=== PATIENT | female | born 1955 | race Caucasian/White ===

== ENCOUNTER 2020-04-18 00:31 | Outpatient (RCR) | payer OTHER, SELFPAY ==
[2019-05-16 16:11] VITALS: BMI 31.4
[2020-04-18] MEDS: COVID-19 VACC, MRNA(PFIZER)/PF 30 MCG/0.3 ML SYRINGE IM (17:22)
[2020-05-09] MEDS: COVID-19 VACC, MRNA(PFIZER)/PF 30 MCG/0.3 ML SYRINGE IM (16:45)
== END 2020-05-09 23:59 | disposition home or self-care (01) ==
LOC: IMMUN 00:31
PROVIDERS: PCP Family Medicine; Visit Provider Family Medicine
DX: Z23 Encounter for immunization (principal)
CPT/HCPCS: 0001A; 0002A; 91300

== ENCOUNTER → 2020-05-07 09:28 | Outpatient (CLI) | payer OTHER, SELFPAY ==
[2019-05-16 16:11] VITALS: BMI 31.4
[2020-05-07 12:05] LABS: Absolute Lymphocyte Count 1.17 X10^3/uL (0.83-4.51); Absolute Neutrophil Count 5.3 X10^3/uL (2.0-7.7); Basophil# 0.03 X10^3/uL; Basophil% 0.4 % (0-1); Eosinophil# 0.08 X10^3/uL; Eosinophils% 1.1 % (0-5); Hematocrit 43.6 % (37-47); Hemoglobin 13.8 g/dL (12.0-15.0); Lymphocyte # 1.17 X10^3/ul (4.0); Lymphocyte % 15.9 % (19-41); Mean Corp Hgb Conc 31.7 g/dL (32-36); Mean Corpuscular Hgb 30.7 pg (27.0-32.0); Mean Corpuscular Volume 97.1 fL (81-99); Mean Platelet Vol. 11.3 fl (6.2-12.0); Monocyte# 0.77 X10^3/uL; Monocyte% 10.5 % (0-10); NRBC Flagged by Analyzer 0 % (0-5); Neutrophil # 5.29 X10^3/uL (2.7-7.7); Neutrophil % 71.8 % (47-70); Platelet Count 347 K/mm3 (150-450); RBC Distribution Width SD 46.2 fl (35.1-43.9); Red Blood Count 4.49 M/mm3 (4.2-5.4); White Blood Count 7.4 K/mm3 (4.4-11.0)
[2020-05-07 12:32] LABS: Vitamin B12 551 pg/mL (211-911); Vitamin D,25 Hydroxy 24.1 ng/mL
[2020-05-07 12:43] LABS: Hemoglobin A1c 6.3 % (3.8-5.6)
[2020-05-07 12:47] LABS: ALB/GLOB Ratio 1.1 RATIO (0.9-2.4); AST(SGOT) 23 U/L (15-37); Alanine Aminotransfer ALT/SGPT 36 U/L (13-56); Albumin, Serum 3.7 g/dL (3.2-5.0); Alkaline Phosphatase 71 U/L (45-117); Anion Gap 5 (5-15); BUN 7 mg/dL (7-18); BUN/Creat Ratio 8.8 RATIO (10-20); Calcium,Total 9.6 mg/dL (8.5-10.1); Chloride 109 mmol/L (98-107); Cholesterol 146 mg/dL (200); Creatinine, Serum 0.79 mg/dL (0.55-1.02); EST Glomerular Filtration Rate 77 mL/min (>60); Est Glom Filt Rate - Afr Amer 94 mL/min (>60); Ferritin 37 ng/mL (8-252); Globulin 3.5 g/dL (2.2-4.2); Glucose 101 mg/dL (74-106); High Density Lipoprotein 60 mg/dL; Magnesium 2.2 mg/dL (1.6-2.6); Potassium 4.3 mmol/L (3.5-5.1); Protein, Total 7.2 g/dL (6.4-8.2); Sodium Level 143 mmol/L (136-145); Thyroid Stim Hormone (TSH) 0.76 uIU/mL (0.358-3.74); Triglycerides 81 mg/dL; Very Low Density Lipoprotein 16 mg/dL (5-40)
[2020-05-07 13:00] LABS: Microalbumin,Random Urine 7.2 mg/L (NO RANGE EST.)
== END ==
PROVIDERS: PCP Family Medicine; Referring Provider Internal Medicine Endocrinology, Diabetes & Metabolism; Visit Provider Internal Medicine Endocrinology, Diabetes & Metabolism
DX: E11.9 Type 2 diabetes mellitus without complications (principal); E78.2 Mixed hyperlipidemia; K90.9 Intestinal malabsorption, unspecified; E55.9 Vitamin D deficiency, unspecified
CPT/HCPCS: 36415; 80053; 80061; 82043; 82306; 82570; 82607; 82728; 83036; 83735; 84443; 85025

== ENCOUNTER 2021-05-07 08:31 | Outpatient (CLI) | payer MEDICARE, SELFPAY ==
[2021-05-07 10:38] LABS: Vitamin B12 362 pg/mL (211-911)
[2021-05-07 10:43] LABS: Hemoglobin A1c 6.2 % (3.8-5.6)
[2021-05-07 10:46] LABS: ALB/GLOB Ratio 1.1 RATIO (0.9-2.4); AST(SGOT) 21 U/L (15-37); Alanine Aminotransfer ALT/SGPT 25 U/L (13-56); Albumin, Serum 3.7 g/dL (3.2-5.0); Alkaline Phosphatase 63 U/L (45-117); Anion Gap 6 (5-15); BUN 7 mg/dL (7-18); BUN/Creat Ratio 8.4 RATIO (10-20); Calcium,Total 9.3 mg/dL (8.5-10.1); Chloride 106 mmol/L (98-107); Cholesterol 133 mg/dL (200); Creatinine, Serum 0.83 mg/dL (0.55-1.02); EST Glomerular Filtration Rate 73 mL/min (>60); Est Glom Filt Rate - Afr Amer 88 mL/min (>60); Globulin 3.3 g/dL (2.2-4.2); Glucose 134 mg/dL (74-106); High Density Lipoprotein 60 mg/dL; Magnesium 2.2 mg/dL (1.6-2.6); Potassium 4.3 mmol/L (3.5-5.1); Sodium Level 140 mmol/L (136-145); Thyroid Stim Hormone (TSH) 0.78 uIU/mL (0.358-3.74); Triglycerides 78 mg/dL; Very Low Density Lipoprotein 16 mg/dL (5-40)
[2021-05-11 12:18] LABS: Zinc, Plasma or Serum 73 ug/dL (44-115)
== END 2021-05-07 23:59 | disposition home or self-care (01) ==
PROVIDERS: PCP Family Medicine; Referring Provider Internal Medicine Endocrinology, Diabetes & Metabolism; Visit Provider Internal Medicine Endocrinology, Diabetes & Metabolism
DX: E11.9 Type 2 diabetes mellitus without complications (principal); E78.2 Mixed hyperlipidemia; K90.9 Intestinal malabsorption, unspecified; E55.9 Vitamin D deficiency, unspecified
CPT/HCPCS: 36415; 80053; 80061; 82043; 82306; 82570; 82607; 83036; 83735; 84443; 84630

== ENCOUNTER 2021-05-22 15:02 | Outpatient (CLI) | payer MEDICARE, SELFPAY ==
--- NOTE | 2021-05-22 15:04 | BI_ITS ---
MAMMOGRAPHY - BILATERAL SCREENING REASON FOR EXAM: Female, 65 years old. Routine annual screening examination. PERTINENT HISTORY: Non-contributory. TECHNIQUE: Digital bilateral breast rosalba (3D mammographic acquisition) in the CC and MLO projections. 2-D mediolateral oblique (MLO) and craniocaudad (CC) views of both breasts were obtained. CAD: Full Field Digital Mammography with Computer Added Detection was performed. COMPARISON: Comparison is made with prior outside examination 12/09/2015. FINDINGS: Breast Composition: There are scattered areas of fibroglandular density. There are no dominant masses or suspicious calcifications. No other significant abnormalities are identified. There has been no significant change since the prior study. BI/SCRN MAMM (CAD)W/ROSALBA BILAT IMPRESSION: Stable bilateral screening mammogram. Yearly follow-up mammogram recommended. (A) ASSESSMENT CATEGORY: BIRADS Category 1: Negative. A letter regarding these results will be sent to the patient by the facility within 30 days. Approximately 10% of breast cancers are not detected by mammography. A normal mammogram should not delay biopsy of a clinically suspicious abnormality. [id number] Electronically Signed: Jas Patel MD at 8:07 EDT ,
--- NOTE | 2021-05-22 15:20 | BD_ITS ---
STUDY: DUAL ENERGY X-RAY ABSORPTIOMETRY / DXA REASON FOR EXAM: Female, 65 years old. Osteopenia TECHNIQUE: Bone Mineral Density (BMD) measurements of lumbar spine and bilateral hips were obtained. COMPARISON: None. FINDINGS: Lumbar Spine (L1-L4): g/cm2 (0.817) / T-score (-2.4) / Z-score (-0.5) Findings are suggestive of osteopenia with a high fracture risk. Left Femur Total: g/cm2 (0.701) / T-score (-2.0) / Z-score (-0.7) Left Femoral Neck: g/cm2 (0.565) / T-score (-2.6) / Z-score (-1.0) Right Femur Total: g/cm2 (0.710) / T-score (-1.9) / Z-score (-0.7) Right Femoral Neck: g/cm2 (0.5-5) / T-score (-2.9) / Z-score (-1.4) BD/Dexa Bone Density Study IMPRESSION: The patient is considered osteoporotic as outlined below according to [employer] (WHO) criteria with a high fracture risk. Reference Information: The T-score is the number of standard deviations above or below the standard which is normal for young adults at their peak bone mineral density. The World Health Organization (WHO) interprets the T-scores as follows: Above -1 Normal bone density Between -1 and -2.5 Osteopenia Equal to / or below -2.5 Osteoporosis As a practical clinical guideline, osteopenia may be graded as follows: Mild -1 through -1.5 Moderate -1.6 through -2.0 Severe -2.1 through -2.4 The Z-score is the number of standard deviations above or below age-matched controls. A Z-score of less than -1.5 would be considered abnormal. References: 1. NIH Osteoporosis and Related Bone Diseases www osteo.org 2. International Society for Clinical Densitometry www iscd.org 3. National Osteoporosis Foundation www nof.org Electronically Signed: Jas Patel MD at 14:58 EDT ,
== END 2021-05-22 23:59 | disposition home or self-care (01) ==
LOC: OPBD 15:03
PROVIDERS: PCP Family Medicine; Referring Provider Internal Medicine Endocrinology, Diabetes & Metabolism; Visit Provider Internal Medicine Endocrinology, Diabetes & Metabolism
DX: Z12.31 Encounter for screening mammogram for malignant neoplasm of breast (principal); Z78.0 Asymptomatic menopausal state
CPT/HCPCS: 77063; 77067; 77080

== ENCOUNTER → 2021-07-10 | Outpatient (CLI) | payer MEDICARE, SELFPAY ==
[2021-07-10 13:04] VITALS: BP 118/71; PULSE 88; RESP 16; TEMP 36.1; O2SAT 98
[2021-07-10] MEDS: 0.9% NaCl Peripheral Flush Adult/Peds IV (13:12)
[2021-07-10] MEDS: Zoledronic Acid 5 MG 100 ML 300 MG IV (13:12)
== END | disposition home or self-care (01) ==
LOC: MEDOUTP 12:58
PROVIDERS: PCP Family Medicine; Referring Provider Internal Medicine Endocrinology, Diabetes & Metabolism; Visit Provider Internal Medicine Endocrinology, Diabetes & Metabolism
DX: M81.0 Age-related osteoporosis without current pathological fracture (principal)
CPT/HCPCS: 96365; A4216; J3489

== ENCOUNTER → 2022-05-05 | Outpatient (CLI) | payer MEDICARE, SELFPAY ==
[2022-05-05 10:14] LABS: Absolute Lymphocyte Count 1.19 X10^3/uL (0.83-4.51); Absolute Neutrophil Count 4.6 X10^3/uL (2.0-7.7); Basophil# 0.05 X10^3/uL; Basophil% 0.8 % (0-1); Eosinophil# 0.12 X10^3/uL; Eosinophils% 1.8 % (0-5); Hematocrit 44.7 % (37-47); Hemoglobin 14.1 g/dL (12.0-15.0); Lymphocyte # 1.19 X10^3/ul (0.83-4.51); Lymphocyte % 18.3 % (19-41); Mean Corp Hgb Conc 31.5 g/dL (32-36); Mean Corpuscular Volume 95.1 fL (81-99); Mean Platelet Vol. 10.5 fl (6.2-12.0); Monocyte# 0.59 X10^3/uL; Monocyte% 9.1 % (0-10); NRBC Flagged by Analyzer 0 % (0-5); Neutrophil # 4.55 X10^3/uL (2.7-7.7); Neutrophil % 69.8 % (47-70); Platelet Count 376 K/mm3 (150-450); RBC Distribution Width CV 12.9 % (11.6-14.6); RBC Distribution Width SD 45.1 fl (35.1-43.9); White Blood Count 6.5 K/mm3 (4.4-11.0)
[2022-05-05 10:23] LABS: Vitamin B12 611 pg/mL (211-911); Vitamin D,25 Hydroxy 32.2 ng/mL
[2022-05-05 10:30] LABS: AST(SGOT) 22 U/L (15-37); Alanine Aminotransfer ALT/SGPT 34 U/L (13-56); Albumin, Serum 3.6 g/dL (3.2-5.0); Alkaline Phosphatase 59 U/L (45-117); Anion Gap 7 (5-15); BUN 11 mg/dL (7-18); BUN/Creat Ratio 12.4 RATIO (10-20); Calcium,Total 9.2 mg/dL (8.5-10.1); Chloride 108 mmol/L (98-107); Cholesterol 138 mg/dL (200); Creatinine, Serum 0.89 mg/dL (0.55-1.02); EST Glomerular Filtration Rate 68 mL/min (>60); Est Glom Filt Rate - Afr Amer 82 mL/min (>60); Globulin 3.5 g/dL (2.2-4.2); Glucose 139 mg/dL (74-106); High Density Lipoprotein 56 mg/dL; Potassium 4.3 mmol/L (3.5-5.1); Protein, Total 7.1 g/dL (6.4-8.2); Sodium Level 142 mmol/L (136-145); Thyroid Stim Hormone (TSH) 1.82 uIU/mL (0.358-3.74); Triglycerides 87 mg/dL; Very Low Density Lipoprotein 17 mg/dL (5-40)
[2022-05-05 10:35] LABS: Microalbumin,Random Urine 6.8 mg/L (NO RANGE EST.); Microalbumin:Creatinine Ratio 13.9 mg/g CRE (<30 mg/g CRE)
== END | disposition home or self-care (01) ==
LOC: MTLAB 08:00
PROVIDERS: PCP Family Medicine; Referring Provider Internal Medicine Endocrinology, Diabetes & Metabolism; Visit Provider Internal Medicine Endocrinology, Diabetes & Metabolism
DX: E55.9 Vitamin D deficiency, unspecified (principal); E11.9 Type 2 diabetes mellitus without complications; E78.2 Mixed hyperlipidemia; K90.9 Intestinal malabsorption, unspecified; E66.09 Other obesity due to excess calories; Z68.32 Body mass index [BMI] 32.0-32.9, adult
CPT/HCPCS: 36415; 80053; 80061; 82043; 82306; 82570; 82607; 84443; 85025

== ENCOUNTER 2022-09-04 08:20 | Outpatient (CLI) | payer MEDICARE, SELFPAY ==
[2022-09-04 08:26] VITALS: BP 130/67; PULSE 70; RESP 14; O2SAT 99; BMI 32.2
[2022-09-04] MEDS: 0.9% NaCl Peripheral Flush Adult/Peds IV (08:47)
[2022-09-04] MEDS: Zoledronic Acid 5 MG 100 ML 300 MG IV (08:47)
[2022-09-04 09:12] VITALS: BP 126/64; PULSE 68; RESP 16; O2SAT 97
== END 2022-09-04 08:21 | disposition home or self-care (01) ==
PROVIDERS: PCP Family Medicine; Referring Provider Internal Medicine Endocrinology, Diabetes & Metabolism; Visit Provider Internal Medicine Endocrinology, Diabetes & Metabolism
DX: M81.0 Age-related osteoporosis without current pathological fracture (principal)
CPT/HCPCS: 96365; A4216; J3489

== ENCOUNTER → 2023-04-26 | Outpatient (CLI) | payer MEDICARE, SELFPAY ==
--- OUTSIDE RECORDS SUMMARY | 2023-04-26 08:33 | XMS RPT_ITS | CCD ---
Author Name Unknown Address [address] [place] [address] Organization [facility] Care Team Providers Care Online Merchandising Manager Name Role Phone Abbie Kaur Primary Care Provider FREDDY KOWALSKI Referring Unavailable ABBIE KAUR Primary Care Unavailable FREDDY KOWALSKI Attending Unavailable ABBIE KAUR Primary Care Unavailable Percy Kaur DOland Venancio Primary Care Provid er ABBIE KAUR Attending ABBIE Noyola Referring ABBIE Noyola Primary Care Sammy KAUR TAMPA VENANCIO Primary Care KORY Henson Referring Unavailable KORY RICE Attending Unavailable Allergies Allergy Classification Reported Allergen(s) Allergy Type Date of Onset Reaction(s) Facility (14 sources) Ciprofloxacin; Translations: [CIPROFLOXACIN] Drug Allergy 03-15-2018 [facility] Medications Current Medications Medication Drug Class(es) Dates Sig (Normalized) Sig (Original) Blood Glucose Monitoring Suppl (OneTouch Verio Flex System) w/Device kit (3 sources) Start: 05-14-2022 Blood Glucose Monitoring Suppl (OneTouch Verio Flex System) w/Device kit USE TO TEST ONCE DAILY 0 05/14/2022 Active Completed/Discontinued Medications Medication Drug Class(es) Dates Sig (Normalized) Sig (Original) A/C/E/ZINC OX/CUPRIC OX/LUTEIN ([facility]) (7 sources) A/C/E/ZINC OX/CU PRIC OX/LUTEIN ([facility]) Take by mouth. 0 Active Problems Problem Classification Problem Date Documented Da te Episodic/Chronic Diabetes mellitus without complication (9 sources) Type 2 diabetes mellitus without complication; Translations: [Type 2 diabetes mellitus without complications] 11-11-2018 Chronic Disorders of lipid metabolism (9 sources) Mixed hyperlipidemia; Translations: [Mixed hyperlipidemia] 11-11-2018 Chronic Headache; including migraine (3 sources) Muscular headache ; Translations: [Tension-type headache, unspecified, not intractable] Onset: 06-12-2022 Chronic Nutritional deficiencies (9 sources) Vitamin D deficiency; Translations: [Vitamin D deficiency, unspecified] 03-18-2016 Chronic Other gastrointestinal disorders (9 sources) Intestinal malabsorption; Translations: [Intestinal malabsorption, unspecified] 11-20-2015 Chronic Other nutritional; endocrine; and metabolic disorders (7 sources) Obese class I; Translations: [Obesity, unspecified] 11-20-2015 Chronic Other nutritional; endocrine; and metabolic disorders (2 sources) Obese class I; Translations: [Obesity (BMI 30.0-34.9)] 11-20-2015 Other screening for suspected conditions (not mental disorders or infectious disease) (6 sources) Patient encounter status; Translations: [Encounter for screening for malignant neoplasm of colon] Onset: 06-12-2022 Episodic Sprains and strains (2 sources) Unspecified sprain of left wrist, initial encounter; Translations: [Unspecified sprain of left wrist, initial encounter] Onset: 06-16-2022 Episodic Results Test Name Value Interpretation Reference Range Facil ity Vital Signs Date Time Vital Sign Value Performing Clinician Rocky le 06-12-2022 08:07-0400 Body height 162.6 cm [place] [employer] Phone: [facility] 06-12-2022 08:07-0400 Body temperature 97.39 [degF] [place] [email or web address] Work Phone: [facility] 06-12-2022 08:07-0400 Body weight 86.64 kg [place] [employer] Phone: [facility] 06-12-2022 08:07-0400 Diastolic blood pressure 78 mm[Hg] [place] [employer] Phone: [facility] 06-12-2022 08:07-0400 Heart rate 74 /min Abbie Harshad DO Work Phone: [facility] 06-12-2022 08:07-0400 SaO2% (BldA) [Mass fraction] 98 % [place] Harshad DO Work Phone: [facility] 06-12-2022 08:07-0400 Systolic blood pressure 130 mm[Hg] Abbie Harshad DO Work Phone: [facility] 05-15-2021 13:08-0400 Body height 162.6 cm [place] Harshad DO Work Phone: [facility] 05-15-2021 13:08-0400 Body weight 85.73 kg Abbie Harshad DO Work Phone: [facility] 05-15-2021 13:08-0400 Diastolic blood pressure 80 mm[Hg] [place] Harshad DO Work Phone: [facility] 05-15-2021 13:08-0400 Heart rate 73 /min [place] Harshad DO Work Phone: [facility] 05-15-2021 13:08-0400 SaO2% (BldA) [Mass fraction] 98 % Abbie Harshad DO Work Phone: [facility] 05-15-2021 13:08-0400 Systolic blood pressure 120 mm[Hg] [place] Harshad DO Work Phone: [facility] Encounters Encounter Date Encounter Type Care Provider Facility Start: 09-21-2022 End: 09-21-2022 ambulatory ABBIEGHASSAN KAUR Facility:[facility] Start: 09-17-2022 ambulatory Kory magana MD Work Phone: Ambulatory Surgery Start: 08-19-2022 ambulatory Cynthia Harrison [facility] [place] Procedures Date Procedure Procedure Detail Performing Clinician Start: 06-16-2022 End: 06-16-2022 Radex wrist complete minimum 3 views Freddy Kowalski MD Work Phone: Start: 05-14-2022 Hemoglobin A1c/Hemoglobin.total in Blood Mikel Price MD Work Phone: Start: 05-05-2022 Lipid panel Mikel huynh MD Work Phone: Start: 05-05-2022 MICROALBUMIN/CREATIN INE UR W RATIO (EXTERNAL) Mikel Price MD Work Phone: Start: 05-22-2021 Mammography [facility] Start: 05-15-2021 Adult depression scr eening assessment [place] Harshad DO Work Phone: Start: 05-07-2021 Hemoglobin A1c/Hemoglobin.total in Blood Mikel Price MD Work Phone: Start: 12-09-2015 Mammography Roberth weston Start: 08-03-2007 CONVERTED SURGICAL PATHOLOGY Roberth Mack Work Phone: Start: 02-25-2004 CONVERTED SURGICAL PATHOLOGY Roberth Mack Work Phone: Plan of Treatment Date Care Activity Detail Author Start: 06-13-2023 ANNUAL PCP TEAM CHRONIC DISEASE VISIT ANNUAL PCP TEAM CHRONIC DISEASE VISIT [facility] Start: 05-06-2023 Hepatitis B screening URINE ALBUMIN:CREATININE RATIO [facility] Start: 05-06-2023 Hepatitis B surface antibody level LDL CHOLESTEROL [facility] Start: 01-18-2023 Hepatitis C antibody, confirmatory test DILATED RETINAL EXAM [facility] Start: 2022 Hemoglobin A1c/Hemoglobin.total in Blood HBA1C [facility] Start: 10-16-2022 Influenza vaccination INFLUENZA (#1) [facility] Start: 06-12-2022 End: 06-13-2023 CBC W Auto Differential panel - Blood CBC + DIFF Lab Routine Expected: 06/12/2022, Expires: 06/13/2023 [facility] Work Phone: Immunizations Immunization Date Immunization Notes Care Provider Fa noelle 11-06-2020 Influenza, injectabl e, Madin Jocy Canine Kidney, preservative free, quadrivalent Abbie Harshad DO Work Phone: [facility] 12-01-2019 influenza virus vacc ine, unspecified formulation [place] Harshad DO Work Phone: [facility] 10-24-2019 Influenza, injectabl e, Madin [place] Canine Kidney, preservative free, quadrivalent Abbie Harshad DO Work Phone: [facility] 03-10-2019 zoster vaccine recombinant [place] Harshad DO Work Phone: [facility] 10-19-2018 Influenza, injectabl e, Madin Jocy Canine Kidney, preservative free, quadrivalent Abbie Harshad DO Work Phone: [facility] 10-19-2018 zoster vaccine recombinant [place] Harshad DO Work Phone: [facility] 11-01-2017 influenza, injectabl e, quadrivalent, preservative free Abbie Harshad DO Work Phone: [facility] 01-18-2017 Influenza, injectabl e, Madin [place] Canine Kidney, preservative free, quadrivalent [place] Harshad DO Work Phone: [facility] 12-09-2015 influenza, injectabl e, quadrivalent, preservative free Abbie Harshad DO Work Phone: [facility] 12-09-2015 zoster vaccine, live Freelan d Harshad DO Work Phone: [facility] 2014 influenza, injectabl e, quadrivalent, preservative free Abbie Harshad DO Work Phone: [facility] 11-16-2013 pneumococcal conjuga te vaccine, 13 valent [place] Harshad DO Work Phone: [facility] 11-08-2013 influenza, high dose seasonal, preservative-free [place] Harshad DO Work Phone: [facility] 11-15-2012 influenza, high dose seasonal, preservative-free [place] Harshad DO Work Phone: [facility] 12-06-2009 influenza virus vacc ine, whole virus [place] Harshad DO Work Phone: [facility] 02-21-2009 novel influenza-H1N1 -09, preservative-free, injectable [place] Harshad DO Work Phone: [facility] 12-03-2008 influenza, seasonal, injectable [place] Harshad DO Work Phone: [facility] 01-04-2007 influenza virus vacc ine, whole virus Abbie Kaur DO Work Phone: [facility] Payers Date Payer Category Payer Medicare AETNA MEDICARE A ETNA MEDICARE PPO [id number] 2021-Present [phone] [address] [place] [address] PPO [id number] 2021 Medicare [id number] 2021 Medicare [id number] Social History Date Type Detail Facility Tobacco smoking stat us GAIS Unknown if ever smoked [facility] Start: 1955 Sex Assigned At Not on file [facility] Start: 11-20-2015 End: 06-16-2022 Tobacco smoking status NHIS Never smoked tobacco [facility] Start: 05-15-2021 End: 06-12-2022 Alcohol intake Current drinker of alcohol (finding) [facility] Start: 11-20-2015 History SDOH Alcohol Comment Rare [facility] Start: 1955 Sex Assigned At Female C [facility] Start: 05-05-2021 End: 06-16-2022 Exposure to SARS-CoV-2 (event) Not sure [facility] Start: 11-20-2015 End: 06-16-2022 Tobacco use and exposure Smokeless tobacco non-user [facility] Start: 06-16-2022 History SDOH Alcohol Frequency 2 [facility] Start: 01-21-2020 End: 06-12-2022 History of Social function [facility] Start: 01-21-2020 End: 06-12-2022 Tobacco use panel [facility] Adult Depression Screening Assessment 0 [facility] Start: 05-14-2021 Gender identity Identifies as female gender (finding) [facility] Medical Equipment Procedure Code Equipment Code Equipment Origin al Text Equipment Identifier Dates USE TO TEST ONCE DAILY [id number] Start: 05-14-2022 Clinical Notes 05-15-2021 to 09-21-2022 Cynthia Harrison - 08/19/2022 10:56 AM EDTPatient InstructionsTelephone Encounter - Yady Nuñez Pss - 07/21/2022 8:54 AM EDTFsimi Kaur DO - 06/12/2022 8:12 AM EDT Note Date & Type Note Facility 09-21-2022 Note HNO ID: [id number] Author: Naomi Hartley, ADWOA Service: ? Author Type: Registered Nurse Type: Nursing Progress Note Filed: 09/21/2022 9:09 AM Note Text: MD at bedside. Findings reviewed with pt. States understanding. [facility] 08-19-2022 Note Patient Outreach (FP YL) DIVINE GROSSMAN ([id number]) 1955 F Date Time Provider Department 08/19/22 CYNTHIA HARRISON During your visit today, we recorded the following information about you: Cynthia Harrison 08/19/2022 11:16 AM Signed POPULATION HEALTH NAVIGATION OUTREACH Action/FYI Patient Identified by Name and : YES, via phone Outreach Outcome/Action Spoke to patient / parent / legal guardian: Patient will return the call or ask for return call Patient has had DM eye exam at [facility] in the past. Called to see when patient had last DM eye exam. Completed on 01-18-[address] Adore Winters. Requested office to fax record to PCP at fax [phone]. HM updated. Patient needs scheduled for Medicare Wellness appt with PCP. Needs Reminder to complete mamm. Last Ov 06-12-22. Spoke to patient. She is going to call back to schedule medicare wellness, she is going to schedule mammogram and osteoporosis injection this week with Dr Price. Scheduled for colonoscopy already. Patient does have HCPOA and will bring into PCP office to be scanned. Did you use a PCP flex slot to schedule this appointment? N/A Reason for Outreach Care Gap or Scheduling/Wellness visits Payer: Payor: AETNA MEDICARE / Plan: AETNA MEDICARE PPO / Product Type: PPO / Care Gap Reviewed:: Annual Wellness visit Breast Cancer screening Diabetic Eye Exam HBA1C Nephropathy (Albumin/Creatinine) Urine Reminder: Reminder note to check Health Maintenance for items below Health Maintenance items due: HEPATITIS C SCREENING Never done DTAP,TDAP,TD(1 - Tdap) Never done COLORECTAL CANCER SCREENING Never done PNEUMOCOCCAL: 65+(2 - PPSV23 if available, else PCV20) due on 01/11/2014 DILATED RETINAL EXAM due on 01/28/2019 DIABETIC FOOT EXAM due on 10/11/2019 ADVANCE DIRECTIVE DISCUSSION Never done DEPRESSION ASSESSMENT Never done MAMMOGRAM due on 05/22/2022 Navigation Signature: Cynthia Harrison August 19, 2022 10:56 AM Allergies As of Date: 08/19/2022 Noted Allergy Reaction CIPROFLOXACIN 03/15/2018 7 - Swelling Comments: tongue Date Reviewed: 06/12/2022 Reviewed by: Abbie Kaur DO - Fully Assessed Reason for Visit: Population Health Navigation Outreach [3910] Cmt: Needs Medicare Wellness Sched, Care Gap Review Order(s):LIPID PANEL (OUTSIDE) [8774888] Order #: [id number] MICROALBUMIN/CREATININE UR W RATIO (EXTERNAL) [3941453] Order #: [id number] HGB A1C [[id number]] Order #: [id number] Prescriptions as of 08/19/2022 - atorvastatin (LIPITOR) 10 mg tablet Take 10 mg by mouth once daily. - ONETOUCH VERIO TEST STRIPS test strip USE TO TEST ONCE DAILY - ONETOUCH VERIO FLEX METER USE TO TEST ONCE DAILY - amitriptyline (ELAVIL) 25 mg tablet Take 1 tablet by mouth daily at bedtime. - amitriptyline (ELAVIL) 10 mg tablet Take 1 tablet by mouth daily at bedtime. - amitriptyline (ELAVIL) 10 mg tablet 1 po q hs x 5 days then 2 (20 mg) hs - metFORMIN (GLUCOPHAGE) 1,000 mg tablet Take 1 tablet by mouth twice daily. - simvastatin (ZOCOR) 20 mg tablet Take 1 tablet by mouth daily at bedtime. - Calcium Citrate-Vitamin D3 200 mg-6.25 mcg (250 unit) tab Take by mouth. - A/C/E/ZINC OX/CUPRIC OX/LUTEIN ([facility] ORAL) Take by mouth. - Cholecalciferol, Vitamin D3, 25 mcg (1,000 unit) cap Take 1,000 Units by mouth once daily. Problem List As Of Date 08/19/2022 Noted Resolved Controlled type 2 diabetes mellitus without com* Mixed hyperlipidemia [E78.2] Malabsorption [K90.9] Obesity (BMI 30.0-34.9) [E66.9] Vitamin D deficiency [E55.9] Encounter Status:Closed by CYNTHIA HARRISON on 08/19/22 [facility] 08-19-2022 Note HNO ID: [id number] Author: Cynthia Harrison Service: ? Author Type: ? Type: Progress Notes Filed: 08/19/2022 11:16 AM Note Text: POPULATION HEALTH NAVIGATION OUTREACH Action/FYI Patient Identified by Name and : YES, via phone Outreach Outcome/Action Spoke to patient / parent / legal guardian: Patient will return the call or ask for return call Patient has had DM eye exam at [facility] in the past. Called to see when patient had last DM eye exam. Completed on 01-18-[address] Adore Winters. Requested office to fax record to PCP at fax [phone]. HM updated. Patient needs scheduled for Medicare Wellness appt with PCP. Needs Reminder to complete mamm. Last Ov 06-12-22. Spoke to patient. She is going to call back to schedule medicare wellness, she is going to schedule mammogram and osteoporosis injection this week with Dr Price. Scheduled for colonoscopy already. Patient does have HCPOA and will bring into PCP office to be scanned. Did you use a PCP flex slot to schedule this appointment? N/A Reason for Outreach Care Gap or Scheduling/Wellness visits Payer: Payor: AETNA MEDICARE / Plan: AETNA MEDICARE PPO / Product Type: PPO / Care Gap Reviewed:: Annual Wellness visit Breast Cancer screening Diabetic Eye Exam HBA1C Nephropathy (Albumin/Creatinine) Urine Reminder: Reminder note to check Health Maintenance for items below Health Maintenance items due: HEPATITIS C SCREENING Never done DTAP,TDAP,TD(1 - Tdap) Never done COLORECTAL CANCER SCREENING Never done PNEUMOCOCCAL: 65+(2 - PPSV23 if available, else PCV20) due on 01/11/2014 DILATED RETINAL EXAM due on 01/28/2019 DIABETIC FOOT EXAM due on 10/11/2019 ADVANCE DIRECTIVE DISCUSSION Never done DEPRESSION ASSESSMENT Never done MAMMOGRAM due on 05/22/2022 Navigation Signature: Cynthia Christy August 19, 2022 10:56 AM [facility] 08-19-2022 History of Presen t illness Narrative POPULATION HEALTH NAVIGATION OUTREACH Action/FYI Patient Identified by Name and : YES, via phone Outreach Outcome/Action Spoke to patient / parent / legal guardian: Patient will return the call or ask for return call Patient has had DM eye exam at [facility] in the past. Called to see when patient had last DM eye exam. Completed on 01-18-[address] Adore Winters. Requested office to fax record to PCP at fax [phone]. HM updated. Patient needs scheduled for Medicare Wellness appt with PCP. Needs Reminder to complete mamm. Last Ov 06-12-22. Spoke to patient. She is going to call back to schedule medicare wellness, she is going to schedule mammogram and osteoporosis injection this week with Dr Price. Scheduled for colonoscopy already. Patient does have HCPOA and will bring into PCP office to be scanned. Did you use a PCP flex slot to schedule this appointment? N/A Reason for Outreach Care Gap or Scheduling/Wellness visits Payer: Payor: AETNA MEDICARE / Plan: AETNA MEDICARE PPO / Product Type: PPO / Care Gap Reviewed:: Annual Wellness visit Breast Cancer screening Diabetic Eye Exam HBA1C Nephropathy (Albumin/Creatinine) Urine Reminder: Reminder note to check Health Maintenance for items below Health Maintenance items due: HEPATITIS C SCREENING Never done DTAP,TDAP,TD(1 - Tdap) Never done COLORECTAL CANCER SCREENING Never done PNEUMOCOCCAL: 65+(2 - PPSV23 if available, else PCV20) due on 01/11/2014 DILATED RETINAL EXAM due on 01/28/2019 DIABETIC FOOT EXAM due on 10/11/2019 ADVANCE DIRECTIVE DISCUSSION Never done DEPRESSION ASSESSMENT Never done MAMMOGRAM due on 05/22/2022 Navigation Signature: Cynthia Harrison August 19, 2022 10:56 AM documented in this encounter [facility] 07-21-2022 Instructions Ydaylin Nuñez Pss - 07/21/2022 8:58 AM EDT Images from the original note were not included. Bowel Preparation Instructions for: Miralax-Gatorade Preparations IF YOU DO NOT FOLLOW THESE DIRECTIONS, YOUR COLONOSCOPY WILL BE CANCELLED. [place] Instructions: Your bowel must be empty so that your doctor can clearly view your colon. Follow all of the instructions in this handout EXACTLY as they are written. Do NOT eat any solid food the ENTIRE day before your colonoscopy. Buy your bowel preparation at least 5 days before your colonoscopy. Four (4) Dulcolax laxative tablets containing 5mg of bisacodyl each (NOT Dulcolax stool softener) One (1) 8.3oz. bottle Miralax (238 grams) or generic equivalent 2 x 32oz. Bottles of Gatorade (NOT RED) Diabetic Patients: Use G2 (Gatorade 2) TRANSPORTATION on the Day of Your Exam A responsible adult MUST be present with you at Check In prior to your colonoscopy and REMAIN in the endoscopy area until you are discharged. You are NOT ALLOWED to drive, take a taxi or bus, or leave the Endoscopy Center ALONE. If you do not have a responsible electric truck driver (family member or friend) with you to take you home, your exam cannot be done with sedation and will be cancelled. Please bring a list of all of your current medications, including any [id number] medications with you. Medications If you take insulin, diabetic medications or blood thinners such as Coumadin (warfarin), Plavix (clopidogrel), Ticlid (ticlopidine hydrochloride), Agrylin (anagrelide), Xarelto (Rivaroxaban), Pradaxa (Dabigatran), Eliquis (Apixaban), and Effient (Prasugrel). You MUST call the doctors who orders those medicines for instructions on altering the dosage before your colonoscopy. All other medications should be taken the day of the exam with a sip of water including ASPIRIN. Five (5) Days Before Your Colonoscopy Do NOT take medicines that stop diarrhea - such as Imodium, Kaopectate, or Pepto Bismol. Do NOT take fiber supplements - such as Metamucil, Citrucel, or Perdiem. Do NOT take products that contain iron - such as multi-vitamins (the label lists what is in the products). Three (3) Days Before Your Colonoscopy Do NOT eat high-fiber foods - such as popcorn, beans, seeds (flax, sunflower, quinoa), multigrain bread, nuts, salad/vegetables, or fresh and dried fruit. 1 Bowel Preparation Instructions for: Miralax-Gatorade Preparations One (1) Day Before Your Colonoscopy Only drink clear liquids the ENTIRE DAY before your colonoscopy. Do NOT eat any solid foods. Drink at least 8 ounces of clear liquids every hour after waking up. The clear liquids you can drink include: Clear Liquid (NO RED LIQUIDS) DO NOT DRINK Gatorade, Pedialyte or Powerade Clear broth or bouillon Coffee or tea (no milk or non-dairy creamer) Carbonated and non-carbonated soft drinks Humble-Aid or other fruit flavored drinks Strained fruit juices (no pulp) Jell-O, popsicles, hard candy Water Alcohol Milk or non-dairy creamers Noodles or vegetables in soup Juice with pulp Liquid you cannot see through Do not use tobacco/vaping products Mix 1/2 of Miralax bottle (119 grams) in each 32 ounces of Gatorade bottle until dissolved. Keep cool in the refrigerator. DO NOT ADD ICE. The bowel preparation solution will be consumed in two parts. Part 1 5:00 PM - Evening before your colonoscopy Take 4 Dulcolax tablets. 6 PM - Evening before your colonoscopy Drink 32 oz. of the mixed solution. Drink an 8 oz. glass of bowel preparation every 15 minutes for a total of 4 glasses. Fifteen (15) minutes later, drink an 8 oz. glass of of clear liquids every 15 minutes for a total of 2 glasses. You may continue to drink clear liquids till midnight. Part 2 On the day of your colonoscopy you may drink clear liquids up to (three) 3 hours prior to procedure. 4 1/2 hours before your colonoscopy Take another 32 oz. bottle of mixed solution. Drink an 8 oz. glass of bowel prep every 15 minutes for a total of 4 glasses. Fifteen (15) minutes later, drink an 8 oz. glass of clear liquids every 15 minutes for a total of 2 glasses. You may continue to drink clear liquids up to (three) 3 hours before your exam. 2 01/2019 documented in this encounter [facility] 07-21-2022 Miscellaneous Notes Indication: AVERAGE RISK SCREENING COLONOSCOPY Height: 5'3 Weight: 185 BMI: 32.8 Have you ever been told you were difficult to intubate? No (If yes, schedule at hospital) Recent stroke or cardiac event in the past 6 months? No (ex: heart attack or stent placement) Chest pain or shortness of breath on exertion? No If yes, give to TANKAGE GRINDER OPERATOR to evaluate. History of COPD/Emphysema/Asthma/or Sleep Apnea? No If uses an inhaler, have pt bring inhaler with them. On oxygen at home? No If yes, give to TANKAGE GRINDER OPERATOR to evaluate. Implanted defibrillator (ACD)? No If yes, schedule at hospital Allergies: Latex, Adhesives, or Medication? Medications If anaphylactic reaction to latex, schedule at hospital On any blood thinners? No (Coumadin, Plavix, ASA, Xarelto, Brilinta, Eliquis, Pradaxa, Efficent etc.) If yes, need to check with physician on whether to stop them or OV Are you insulin dependent? Are your sugars in control? Ask what BS is running. No If controlled sugars needs scheduled in early AM, If uncontrolled sugars and are over 250 needs to be scheduled at hospital. Any kidney/liver disease or on dialysis? No If cirrhosis pt., have TANKAGE GRINDER OPERATOR review chart Do you have a history of seizures? No If yes, when was last seizure? Tracheostomy new or old No If yes, schedule at hospital Any surgery or radiation to the head or neck? No If can't move neck side to side & up and down, schedule at hospital. Radiation to neck or head automatically gets scheduled at hospital COVID patients. Are you still having symptoms such as shortness of breath, on oxygen, using inhalers, seeing calibration specialist? No If yes, have TANKAGE GRINDER OPERATOR evaluate patient Personal History Colon polyps? No Colon cancer? No Crohn's Disease? No Ulcerative Colitis? No Who/where? Approx date Family History Colon polyps? No Colon cancer? No Crohn's Disease? No Ulcerative Colitis? No Relationship? Approx age dx. Referring Physician: Office Visit Scheduled: Procedure Date Scheduled: 09/21/22 documented in this encounter [facility] 06-12-2022 Note HNO ID: [id number] Author: Abbie Kaur DO Service: ? Author Type: Physician Type: Progress Notes Filed: 06/17/2022 8:44 PM Note Text: [facility] Negra Kaur DO [address] [place] [address] Date of Evaluation: 06/12/2022 Patient Name: Divine Grossman : 1955 Chief Complaint: Patient presents with: Follow Up: Yearly check up Nursing Intake: There are no exam notes on file for this visit. Subjective Ms. Grossman is a 66 year old female who is here today for her yearly exam. Patient states it has been a long time since she had a colonoscopy. Patient states she is currently having headaches and needs a refill on her medication The history is provided by the patient. No specialized language instructor was used. Review of Systems Constitutional: Negative for fatigue and unexpected weight change. HENT: Negative for nosebleeds. Eyes: Negative for redness and visual disturbance. Respiratory: Negative for apnea, cough and shortness of breath. Cardiovascular: Negative for chest pain, palpitations and leg swelling. Genitourinary: Negative for hematuria. Neurological: Negative for dizziness, weakness, light-headedness, numbness and headaches. Hematological: Does not bruise/bleed easily. Psychiatric/Behavioral: The patient is not nervous/anxious. PAST MEDICAL HISTORY Diagnosis Date Controlled type 2 diabetes mellitus without complication (HCC) H/O gastric bypass Malabsorption Mixed hyperlipidemia Obesity (BMI 30.0-34.9) Osteoporosis TBI (traumatic brain injury) (FORM[facility]) 2009 again in 2014 Uterine cancer (HCC) Vitamin D deficiency PAST SURGICAL HISTORY Procedure Laterality Date GASTRIC BYPASS HX HYSTERECTOMY HX FAMILY HISTORY Problem Relation Age of Onset Stroke Mother Diabetes Sister Social History Tobacco Use Smoking status: Never Smokeless tobacco: Never Vaping Use Vaping Use: Never used Substance Use Topics Alcohol use: Yes Comment: Rare Current Outpatient Medications Medication Sig atorvastatin (LIPITOR) 10 mg tablet Take 10 mg by mouth once daily. ONETOUCH VERIO TEST STRIPS test strip USE TO TEST ONCE DAILY ONETOUCH VERIO FLEX METER USE TO TEST ONCE DAILY amitriptyline (ELAVIL) 10 mg tablet Take 1 tablet by mouth daily at bedtime. metFORMIN (GLUCOPHAGE) 1,000 mg tablet Take 1 tablet by mouth twice daily. Cholecalciferol, Vitamin D3, 25 mcg (1,000 unit) cap Take 1,000 Units by mouth once daily. amitriptyline (ELAVIL) 25 mg tablet Take 1 tablet by mouth daily at bedtime. amitriptyline (ELAVIL) 10 mg tablet 1 po q hs x 5 days then 2 (20 mg) hs (Patient not taking: Reported on 06/12/2022) simvastatin (ZOCOR) 20 mg tablet Take 1 tablet by mouth daily at bedtime. (Patient not taking: Reported on 06/12/2022) Calcium Citrate-Vitamin D3 200 mg-6.25 mcg (250 unit) tab Take by mouth. (Patient not taking: Reported on 06/12/2022) A/C/E/ZINC OX/CUPRIC OX/LUTEIN ([facility]) Take by mouth. No current facility-administered medications for this visit. I have confirmed and edited as necessary the past medical, family and social histories, HPI, and ROS obtained by others. Objective BP 130/78 Pulse 74 Temp 97.4 Ht 5' 4 (1.63m) Wt 191 lb (86.6kg) SpO2 98% BMI 32.77 kg/(m2). Physical Exam Vitals and nursing note reviewed. Constitutional: General: She is not in acute distress. Appearance: Normal appearance. She is well-developed. She is not ill-appearing. HENT: Head: Normocephalic. Right Ear: There is no impacted cerumen. Left Ear: There is no impacted cerumen. Mouth/Throat: Pharynx: Uvula midline. No oropharyngeal exudate or posterior oropharyngeal erythema. Eyes: General: Lids are normal. Vision grossly intact. Gaze aligned appropriately. No scleral icterus. Right eye: No discharge. Left eye: No discharge. Extraocular Movements: Extraocular movements intact. Conjunctiva/sclera: Conjunctivae normal. Pupils: Pupils are equal, round, and reactive to light. Neck: Thyroid: No thyroid mass, thyromegaly or thyroid tenderness. Vascular: No carotid bruit. Trachea: Trachea and phonation normal. Cardiovascular: Rate and Rhythm: Normal rate and regular rhythm. Pulses: Normal pulses. Heart sounds: Normal heart sounds. Pulmonary: Effort: Pulmonary effort is normal. Breath sounds: Normal breath sounds. Musculoskeletal: General: Normal range of motion. Right shoulder: Normal. Left shoulder: Normal. Cervical back: Normal and full passive range of motion without pain. No tenderness. No spinous process tenderness. Thoracic back: Normal. Lumbar back: Normal. Right knee: Normal. Left knee: Normal. Right lower leg: No edema. Left lower leg: No edema. Lymphadenopathy: Cervical: No cervical adenopathy. Skin: General: Skin is warm and dry. Neurologic (more content not included)... [facility] 06-12-2022 History of Presen t illness Narrative Images from the original note were not included. [facility] [place] DO Harshad [address] [place] [address] Date of Evaluation: 06/12/2022 Patient Name: Divine Grossman : 1955 Chief Complaint: Patient presents with: Follow Up: Yearly check up Nursing Intake: There are no exam notes on file for this visit. Subjective Ms. Grossman is a 66 year old female who is here today for her yearly exam. Patient states it has been a long time since she had a colonoscopy. Patient states she is currently having headaches and needs a refill on her medication The history is provided by the patient. No specialized language instructor was used. Review of Systems Constitutional: Negative for fatigue and unexpected weight change. HENT: Negative for nosebleeds. Eyes: Negative for redness and visual disturbance. Respiratory: Negative for apnea, cough and shortness of breath. Cardiovascular: Negative for chest pain, palpitations and leg swelling. Genitourinary: Negative for hematuria. Neurological: Negative for dizziness, weakness, light-headedness, numbness and headaches. Hematological: Does not bruise/bleed easily. Psychiatric/Behavioral: The patient is not nervous/anxious. PAST MEDICAL HISTORY Diagnosis Date Controlled type 2 diabetes mellitus without complication ([facility]) H/O gastric bypass Malabsorption Mixed hyperlipidemia Obesity (BMI 30.0-34.9) Osteoporosis TBI (traumatic brain injury) ([facility]) 2009 again in 2013 Uterine cancer ([facility]) Vitamin D deficiency PAST SURGICAL HISTORY Procedure Laterality Date GASTRIC BYPASS HX HYSTERECTOMY HX FAMILY HISTORY Problem Relation Age of Onset Stroke Mother Diabetes Sister Social History Tobacco Use Smoking status: Never Smokeless tobacco: Never Vaping Use Vaping Use: Never used Substance Use Topics Alcohol use: Yes Comment: Rare Current Outpatient Medications Medication Sig atorvastatin (LIPITOR) 10 mg tablet Take 10 mg by mouth once daily. ONETOUCH VERIO TEST STRIPS test strip USE TO TEST ONCE DAILY ONETOUCH VERIO FLEX METER USE TO TEST ONCE DAILY amitriptyline (ELAVIL) 10 mg tablet Take 1 tablet by mouth daily at bedtime. metFORMIN (GLUCOPHAGE) 1,000 mg tablet Take 1 tablet by mouth twice daily. Cholecalciferol, Vitamin D3, 25 mcg (1,000 unit) cap Take 1,000 Units by mouth once daily. amitriptyline (ELAVIL) 25 mg tablet Take 1 tablet by mouth daily at bedtime. amitriptyline (ELAVIL) 10 mg tablet 1 po q hs x 5 days then 2 (20 mg) hs (Patient not taking: Reported on 06/12/2022) simvastatin (ZOCOR) 20 mg tablet Take 1 tablet by mouth daily at bedtime. (Patient not taking: Reported on 06/12/2022) Calcium Citrate-Vitamin D3 200 mg-6.25 mcg (250 unit) tab Take by mouth. (Patient not taking: Reported on 06/12/2022) A/C/E/ZINC OX/CUPRIC OX/LUTEIN ([facility]) Take by mouth. No current facility-administered medications for this visit. I have confirmed and edited as necessary the past medical, family and social histories, HPI, and ROS obtained by others. Objective BP 130/78 Pulse 74 Temp 97.4 Ht 5' 4 (1.63m) Wt 191 lb (86.6kg) SpO2 98% BMI 32.77 kg/(m^2). Physical Exam Vitals and nursing note reviewed. Constitutional: General: She is not in acute distress. Appearance: Normal appearance. She is well-developed. She is not ill-appearing. HENT: Head: Normocephalic. Right Ear: There is no impacted cerumen. Left Ear: There is no impacted cerumen. Mouth/Throat: Pharynx: Uvula midline. No oropharyngeal exudate or posterior oropharyngeal erythema. Eyes: General: Lids are normal. Vision grossly intact. Gaze aligned appropriately. No scleral icterus. Right eye: No discharge. Left eye: No discharge. Extraocular Movements: Extraocular movements intact. Conjunctiva/sclera: Conjunctivae normal. Pupils: Pupils are equal, round, and reactive to light. Neck: Thyroid: No thyroid mass, thyromegaly or thyroid tenderness. Vascular: No carotid bruit. Trachea: Trachea and phonation normal. Cardiovascular: Rate and Rhythm: Normal rate and regular rhythm. Pulses: Normal pulses. Heart sounds: Normal heart sounds. Pulmonary: Effort: Pulmonary effort is normal. Breath sounds: Normal breath sounds. Musculoskeletal: General: Normal range of motion. Right shoulder: Normal. Left shoulder: Normal. Cervical back: Normal and full passive range of motion without pain. No tenderness. No spinous process tenderness. Thoracic back: Normal. Lumbar back: Normal. Right knee: Normal. Left knee: Normal. Right lower leg: No edema. Left lower leg: No edema. Lymphadenopathy: Cervical: No cervical adenopathy. Skin: General: Skin is warm and dry. Neurological: General: No focal deficit present. Mental Status: She is alert and oriented to person, place, and time. Mental status is at baseline. Sensory: Sensation is intact. Motor: Motor function is intact. Psychiatric: Attention and Perception: Attention and perception normal. Mood and Affect: Mood normal. Speech: Speech normal. Behavior: Behavior normal. Thought Content: Thought content normal. Judgment: Judgment normal. Data Reviewed: Most recent labs ASSESSMENT/PLAN: 1. Screening for colon cancer - ICD9: V76.51, ICD10: Z12.11 (primary diagnosis) - consult to gastroenterology for screening - CONSULT TO GASTROENTEROLOGY 2. Muscle tension headache - ICD9: 307.81, ICD10: G44.209 - increase Amitriptyline to 25 mg - AMITRIPTYLINE 25 MG TABLET Abbie Kaur DO Return in about 1 year (around 06/13/2023). Attestation: Scribe Statement: I Catherine Colon LPN am scribing for, and in the presence of, Abbie Kaur DO June 12, 2022 10:19 AM. Physician Statement: I, Abbie Kaur DO, personally performed the services described in the documentation, as scribed by Catherine Colon in my presence, and it is both accurate and complete June 12, 2022 8:41 AM. documented in this encounter [facility] 05-16-2021 Miscellaneous Notes Notified pt that med has been sent in. Kathia Bolivar Elavil? I send that Pt was in yesterday for headaches. Pt said was supposed to call med into pharmacy. There is no med in her office note to know what wasn't sent and pt does not know the name of the med. Pt uses [facility] in [place] Kathia Bolivar documented in this encounter [facility] 05-15-2021 History of Presen t illness Narrative Images from the original note were not included. 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 Subjective Ms. Grossman is a 65 year old female who presents with the following complaint(s): The history is provided by the patient. Headache This is a recurrent problem. The current episode started more than 1 week ago. The headache is associated with activity and straining. The pain is located in the frontal and bilateral region. The quality of the pain is described as dull and throbbing. The pain is moderate. The pain does not radiate. Pertinent negatives include no palpitations and no shortness of breath. Review of Systems Constitutional: Negative for fatigue and unexpected weight change. HENT: Negative for nosebleeds. Eyes: Negative for redness and visual disturbance. Respiratory: Negative for apnea, cough and shortness of breath. Cardiovascular: Negative for chest pain, palpitations and leg swelling. Genitourinary: Negative for hematuria. Neurological: Positive for headaches. Negative for dizziness, weakness, light-headedness and numbness. Hematological: Does not bruise/bleed easily. Psychiatric/Behavioral: The patient is not nervous/anxious. PAST MEDICAL HISTORY Diagnosis Date Controlled type 2 diabetes mellitus without complication (HCC) H/O gastric bypass Malabsorption Mixed hyperlipidemia Obesity (BMI 30.0-34.9) TBI (traumatic brain injury) ([facility]) 2009 again in 2013 Uterine cancer ([facility]) Vitamin D deficiency PAST SURGICAL HISTORY Procedure Laterality Date GASTRIC BYPASS HX HYSTERECTOMY HX FAMILY HISTORY Problem Relation Age of Onset Diabetes Sister Stroke Mother Social History Tobacco Use Smoking status: Never Smoker Smokeless tobacco: Never Used Substance Use Topics Alcohol use: Yes Comment: Rare Drug use: Not on file Current Medications metFORMIN (GLUCOPHAGE) 1,000 mg tablet Take 1 tablet by mouth twice daily. simvastatin (ZOCOR) 20 mg tablet Take 1 tablet by mouth daily at bedtime. Calcium Citrate-Vitamin D3 (CITRACAL ULTRADENSE) 200 mg calcium -250 unit tab Take by mouth. A/C/E/ZINC OX/CUPRIC OX/LUTEIN ([facility]) Take by mouth. Cholecalciferol, Vitamin D3, (VITAMIN D) 1,000 unit cap Take 1,000 Units by mouth once daily. amitriptyline (ELAVIL) 10 mg tablet 1 po q hs x 5 days then 2 (20 mg) hs I have confirmed and edited as necessary the past medical, family and social histories, HPI, and ROS obtained by others. Objective BP 120/80 Pulse 73 Ht 5' 4 (1.63m) Wt 189 lb (85.7kg) SpO2 98% BMI 32.43 kg/(m^2). Physical Exam Vitals and nursing note reviewed. Constitutional: General: She is not in acute distress. Appearance: Normal appearance. She is well-developed. She is not ill-appearing. HENT: Head: Normocephalic. Right Ear: Tympanic membrane, ear canal and external ear normal. There is no impacted cerumen. Left Ear: Tympanic membrane, ear canal and external ear normal. There is no impacted cerumen. Nose: Nose normal. Mouth/Throat: Mouth: Mucous membranes are moist. Pharynx: Oropharynx is clear. Uvula midline. No oropharyngeal exudate or posterior oropharyngeal erythema. Eyes: General: Lids are normal. Vision grossly intact. Gaze aligned appropriately. No scleral icterus. Right eye: No discharge. Left eye: No discharge. Extraocular Movements: Extraocular movements intact. Conjunctiva/sclera: Conjunctivae normal. Pupils: Pupils are equal, round, and reactive to light. Neck: Thyroid: No thyroid mass, thyromegaly or thyroid tenderness. Vascular: No carotid bruit. Trachea: Trachea and phonation normal. Cardiovascular: Rate and Rhythm: Normal rate and regular rhythm. Pulses: Normal pulses. Heart sounds: Normal heart sounds. Pulmonary: Effort: Pulmonary effort is normal. Breath sounds: Normal breath sounds. Abdominal: General: Abdomen is flat. Bowel sounds are normal. Palpations: Abdomen is soft. Musculoskeletal: General: Normal range of motion. Right shoulder: Normal. Left shoulder: Normal. Cervical back: Normal, full passive range of motion without pain and neck supple. No tenderness. No spinous process tenderness. Thoracic back: Normal. Lumbar back: Normal. Right knee: Normal. Left knee: Normal. Right lower leg: No edema. Left lower leg: No edema. Lymphadenopathy: Cervical: No cervical adenopathy. Skin: General: Skin is warm and dry. Neurological: General: No focal deficit present. Mental Status: She is alert and oriented to person, place, and time. Mental status is at baseline. Cranial Nerves: Cranial nerves are intact. Sensory: Sensation is intact. Motor: Motor function is intact. Psychiatric: Attention and Perception: Attention and perception normal. Mood and Affect: Mood normal. Speech: Speech normal. Behavior: Behavior normal. Thought Content: Thought content normal. Judgment: Judgment normal. Data Reviewed: No new labs ASSESSMENT/PLAN: 1. Muscle tension headache - ICD9: 307.81, ICD10: G44.209 - Start Amitriptyline - AMITRIPTYLINE 10 MG TABLET Abbie Kaur DO Return if symptoms worsen or fail to improve. Attestation: Scribe Statement: Radha Taylor am scribing for, and in the presence of, Abbie Kaur DO May 15, 2021 1:35 PM. Physician Statement: I, Abbie Kaur DO, personally performed the services described in the documentation, as scribed by Aziza Amaya in my presence, and it is both accurate and complete May 15, 2021 1:51 PM. documented in this encounter [facility] Diagnosis Muscle tension headache- Primary Tension headache Screening for colon cancer Special screening for malignant neoplasms, colon [facility] Diagnosis Special screening for malignant neoplasms, colon- Primary [facility] (narrative)* Outpatient Procedure (Routine) - Authorized Specialty Diagnoses / Procedures Referred By Contgeorgina t Referred To Contact [facility] [place] Diagnoses Special screening for malignant neoplasms, colon Procedures COLONOSCOPY SCREENING COLONOSCOPY FLX DX W/COLLJ SPEC WHEN PFRMKory Chow MD [address] [place] [address] [facility] [address] [address] Referral ID Status Reason Start Date Expiration Date Visits Requested Visits Authorized [id number] Authorized Auto-Generat ed Referral 07/21/2022 07/22/2023 1 1 [facility] Summary Purpose Family History No Family History Records FoundNo Family History Records FoundNo Family History Records FoundNo Family History Records Found Advance Directives No Advanced Directives Records FoundDocuments on File Type Date Recorded Patient [employer] Expl anation Advance Directive(s) 03/15/2018 2:43 PM Reason for Referral Specialty Diagnoses / Procedures Referred By Kira westfall Referred To Contact Gastroenterology Diagnoses Screening for colon cancer Procedures CONSULT TO GASTROENTEROLOGY OFFICE/OUTPATIENT [facility] 60-74 MINUTES Abbie Kaur DO [address] [place] [id number] Referral ID Status Reason Start Date Expiration Date Visits Requested Visits Authorized [id number] Pending Review PCP Requested Referral 06/12/2022 06/12/2023 1 1 Additional Source Comments INFORMATION SOURCE (unrecogn ized section and content) DATE CREATED AUTHOR AUTHOR'S ORGANIZ ATION 06/20/2022 [facility] DATE CREATED AUTHOR AUTHOR'S ORGANIZ ATION 08/19/2022 [facility] DATE CREATED AUTHOR AUTHOR'S ORGANIZ ATION 09/21/2022 [facility] Source Comments (unrecognize d section and content) In the event this informatio n is protected by the Federal Confidentiality of Alcohol and Drug Abuse Patient Records regulations: The Federal rules restrict any use of the information to criminally investigate or prosecute any alcohol or drug abuse patient.[facility] the event this information is protected by the Federal Confidentiality of Alcohol and Drug Abuse Patient Records regulations: The Federal rules restrict any use of the information to criminally investigate or prosecute any alcohol or drug abuse patient.[facility] the event this information is protected by the Federal Confidentiality of Alcohol and Drug Abuse Patient Records regulations: The Federal rules restrict any use of the information to criminally investigate or prosecute any alcohol or drug abuse patient.[facility] the event this information is protected by the Federal Confidentiality of Alcohol and Drug Abuse Patient Records regulations: The Federal rules restrict any use of the information to criminally investigate or prosecute any alcohol or drug abuse patient.[facility] the event this information is protected by the Federal Confidentiality of Alcohol and Drug Abuse Patient Records regulations: The Federal rules restrict any use of the information to criminally investigate or prosecute any alcohol or drug abuse patient.[facility] the event this information is protected by the Federal Confidentiality of Alcohol and Drug Abuse Patient Records regulations: The Federal rules restrict any use of the information to criminally investigate or prosecute any alcohol or drug abuse patient.[facility] the event this information is protected by the Federal Confidentiality of Alcohol and Drug Abuse Patient Records regulations: The Federal rules restrict any use of the information to criminally investigate or prosecute any alcohol or drug abuse patient.[facility] the event this information is protected by the Federal Confidentiality of Alcohol and Drug Abuse Patient Records regulations: The Federal rules restrict any use of the information to criminally investigate or prosecute any alcohol or drug abuse patient.[facility] the event this information is protected by the Federal Confidentiality of Alcohol and Drug Abuse Patient Records regulations: The Federal rules restrict any use of the information to criminally investigate or prosecute any alcohol or drug abuse patient.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 Reason Comments Follow Up Yearly check up Reason Comments screening colonoscopy checklist/order Reason Onset Date Comments Population Health Navigation Outreach 08/19/2022 Needs Medicare Wellness Sched, Care Gap Review Care Teams (unrecognized sec tion and content) Online Merchandising Manager Relationship Specialty Start Date End Date Abbie Kaur DO PCP - General Family Practice 03/18/16 Online Merchandising Manager Relationship Specialty Start Date End Date Abbie Kaur DO PCP - General Family Practice 03/18/16 Online Merchandising Manager Relationship Specialty Start Date End Date Abbie Kaur DO [address] [place] [address] PCP - General Family Medicine 06/16/22 Online Merchandising Manager Relationship Specialty Start Date End Date Abbie Kaur DO PCP - General Family Medicine 03/18/16 Online Merchandising Manager Relationship Specialty Start Date End Date Abbie Kaur DO PCP - General Family Medicine 03/18/16 Online Merchandising Manager Relationship Specialty Start Date End Date Abbie Kaur DO PCP - General Family Medicine 03/18/16 Online Merchandising Manager Relationship Specialty Start Date End Date Abbie Kaur DO PCP - General Family Medicine 03/18/16 FOR RECORDS PERTAINING TO PATIENTS WHO ARE OR HAVE BEEN ENROLLED IN A CHEMICAL DEPENDENCY/SUBSTANCEABUSE PROGRAM, SOME INFORMATION MAY BE OMITTED. This clinical summary was aggregated from multiple sources. Caution should be exercised in using it in the provision of clinical care. This summary normalizes information from multiple sources, and as a consequence, information in this document may materially change the coding, format and clinical context of patient data. In addition, data may be omitted in some cases. CLINICAL DECISIONS SHOULD BE BASED ON THE PRIMARY CLINICAL RECORDS. [facility] [email or web address] [email or web address] no warranty or guarantee [id number] the accuracy [phone] completeness of information in this [id number]
[2023-04-26 10:35] LABS: Absolute Lymphocyte Count 1.28 X10^3/uL (0.83-4.51); Absolute Neutrophil Count 4.4 X10^3/uL (2.0-7.7); Basophil# 0.04 X10^3/uL; Basophil% 0.6 % (0-1); Eosinophil# 0.12 X10^3/uL; Eosinophils% 1.8 % (0-5); Hematocrit 42.8 % (37-47); Hemoglobin 13.6 g/dL (12.0-15.0); Lymphocyte # 1.28 X10^3/ul (0.83-4.51); Lymphocyte % 19.7 % (19-41); Mean Corp Hgb Conc 31.8 g/dL (32-36); Mean Corpuscular Hgb 29.9 pg (27.0-32.0); Mean Corpuscular Volume 94.1 fL (81-99); Mean Platelet Vol. 10.7 fl (6.2-12.0); Monocyte# 0.63 X10^3/uL; Monocyte% 9.7 % (0-10); NRBC Flagged by Analyzer 0 % (0-5); Neutrophil # 4.42 X10^3/uL (2.7-7.7); Platelet Count 324 K/mm3 (150-450); RBC Distribution Width CV 13.3 % (11.6-14.6); RBC Distribution Width SD 45.4 fl (35.1-43.9); Red Blood Count 4.55 M/mm3 (4.2-5.4); White Blood Count 6.5 K/mm3 (4.4-11.0)
[2023-04-26 10:58] LABS: Microalbumin,Random Urine 5.7 mg/L (NO RANGE EST.); Microalbumin:Creatinine Ratio 15.7 mg/g CRE (<30 mg/g CRE)
[2023-04-26 11:18] LABS: Vitamin B12 350 pg/mL (211-911); Vitamin D,25 Hydroxy 26.4 ng/mL
[2023-04-26 11:43] LABS: AST(SGOT) 18 U/L (15-37); Alanine Aminotransfer ALT/SGPT 22 U/L (13-56); Albumin, Serum 3.4 g/dL (3.2-5.0); Alkaline Phosphatase 54 U/L (45-117); Anion Gap 6 (5-15); BUN 12 mg/dL (7-18); BUN/Creat Ratio 14.3 RATIO (10-20); Calcium,Total 8.9 mg/dL (8.5-10.1); Chloride 108 mmol/L (98-107); Cholesterol 147 mg/dL (200); Creatinine, Serum 0.84 mg/dL (0.55-1.02); EST Glomerular Filtration Rate 72 mL/min (>60); Est Glom Filt Rate - Afr Amer 87 mL/min (>60); Ferritin 22 ng/mL (8-252); Globulin 3.5 g/dL (2.2-4.2); Glucose 113 mg/dL (74-106); High Density Lipoprotein 60 mg/dL; Protein, Total 6.9 g/dL (6.4-8.2); Sodium Level 141 mmol/L (136-145); Thyroid Stim Hormone (TSH) 1.45 uIU/mL (0.358-3.74); Triglycerides 74 mg/dL; Very Low Density Lipoprotein 15 mg/dL (5-40)
== END | disposition home or self-care (01) ==
PROVIDERS: PCP Family Medicine; Referring Provider Internal Medicine Endocrinology, Diabetes & Metabolism; Visit Provider Internal Medicine Endocrinology, Diabetes & Metabolism
DX: E78.2 Mixed hyperlipidemia (principal); E11.9 Type 2 diabetes mellitus without complications; K90.9 Intestinal malabsorption, unspecified; M81.0 Age-related osteoporosis without current pathological fracture
CPT/HCPCS: 36415; 80053; 80061; 82043; 82306; 82570; 82607; 82728; 84443; 85025

== ENCOUNTER 2023-09-10 09:33 | Outpatient (CLI) | payer MEDICARE, SELFPAY ==
[2023-09-10 09:41] VITALS: BP 112/72; PULSE 86; RESP 16; TEMP 35.8; O2SAT 99; BMI 30.5
[2023-09-10] MEDS: 0.9% NaCl Peripheral Flush Adult/Peds IV (09:49)
[2023-09-10] MEDS: Zoledronic Acid 5 MG 100 ML 300 MG IV (09:51)
[2023-09-10 10:12] VITALS: BP 109/53; PULSE 76; RESP 16
== END 2023-09-10 23:59 | disposition home or self-care (01) ==
LOC: MEDOUTP 09:33
PROVIDERS: PCP Family Medicine; Referring Provider Internal Medicine Endocrinology, Diabetes & Metabolism; Visit Provider Internal Medicine Endocrinology, Diabetes & Metabolism
DX: M81.0 Age-related osteoporosis without current pathological fracture (principal)
CPT/HCPCS: 96365; A4216; J3489

== ENCOUNTER 2024-09-13 07:45 | Outpatient (CLI) | payer MEDICARE, SELFPAY ==
[2024-09-13 07:59] VITALS: BP 116/64; PULSE 70; RESP 16; TEMP 35.7; O2SAT 98; BMI 30.6
[2024-09-13] MEDS: 0.9% NaCl IVPB Med Flush (100mL) 15 ML IV (08:05)
[2024-09-13] MEDS: 0.9% NaCl Peripheral Flush Adult IV (08:05)
[2024-09-13 08:48] VITALS: BP 118/63; PULSE 72; RESP 16; TEMP 36.4; O2SAT 96
== END 2024-09-13 23:59 | disposition home or self-care (01) ==
LOC: MEDOUTP 07:45
PROVIDERS: PCP Family Medicine; Referring Provider Internal Medicine Endocrinology, Diabetes & Metabolism; Visit Provider Internal Medicine Endocrinology, Diabetes & Metabolism
DX: M81.0 Age-related osteoporosis without current pathological fracture (principal)
CPT/HCPCS: 96365; A4216; J3489

== ENCOUNTER → 2024-10-10 | Outpatient (CLI) | payer MEDICARE, SELFPAY ==
--- OUTSIDE RECORDS SUMMARY | 2024-10-10 07:27 | XMS RPT_ITS | CCD ---
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 Angel Kaur Primary Care Provider Dr. Angel Kaur Referring Provider Dr. Mikel Price Attending Provider [phone] Harshad MICHAEL, Jalen Gil Primary Care [facility] er Jalen Kaur DO Primary Care Provider [phone] [facility]ad [facility] Provid er Jalen Kaur DO Primary Care Provider MOE LEWIS [facility] Un[facility] Care Unavailable MOE LEWIS Attending Unavailable Dr. Angel Kaur DO Primary Care Provider Dr. Mikel Price MD Attending Provider Dr. Mikel Price MD Referring Provider JALEN KAUR Attending [facility] UnavaJALEN Anguiano Attending Sammy KAUR, [facility] Primary Care Unavai labgarett KAUR, [facility] Primary Care Unavai labgarett SELF Referring Unavailable JALEN KAUR Attending Mikel [place] Attending Unavailable Angel [facility]aur [facility] Mikel Price [facility] Unavailable Mikel Price Referring Unavailable Mikel Price Referring Unavailable Mikel Price Attending Unavailable Angel Kaur Primary Care Unavailable Allergies Allergy Classification Reported Allergen(s) Allergy Type Date of Onset Reaction(s) Facility (20 sources) Ciprofloxacin; Translations: [CIPROFLOXACIN] Drug Allergy 03-15-2018 [facility] (1 source) Ciprofloxacin Drug Allergy 09-13-2024 [facility] Repository Medications Current Medications Medication Drug Class(es) Dates Sig (Normalized) Sig (Original) A/C/E/ZINC OX/CUPRIC OX/LUTEIN ([facility]) (20 sources) A/C/E/ZINC OX/CU PRIC OX/LUTEIN ([facility]) Take by mouth. Active A/C/E/ZINC OX/CU PRIC OX/LUTEIN ([facility]) Take by mouth. 0 Active Comment on above: Take by mouth. amitriptyline hydrochloride 25 mg oral tablet (20 sources) Tricyclic Antidepressant Start: 02-22-19 End: 02-01-20 25 take 1 tablet by mouth once daily at bedtime amitriptyline (ELAVIL) 25 mg tablet Indications: Muscle tension headache Take 1 tablet by mouth daily at bedtime. 90 tablet 3 02/01/2024 01/31/2025 Active Start: 06-12-2022 End: 11-10-2022 take 1 tablet by mouth once daily at bedtime amitriptyline (ELAVIL) 25 mg tablet Indications: Muscle tension headache Take 1 tablet by mouth daily at bedtime. 30 tablet 3 06/12/2022 11/10/2022 Discontinued Start: 06-30-2021 End: 05-11-2023 Amitriptyline 10 mg tablet Discontinued 25 mg PO June 30, 2021 12:00am May 11, 2023 8:22am Start: 06-30-2021 Amitriptyline Active 25 MG PO June 30, 2021 12:00am Start: 05-16-2021 End: 06-20-2021 take 1 tablet by mouth once daily at bedtime amitriptyline (ELAVIL) 10 mg tablet Indications: Muscle tension headache Take 1 tablet by mouth daily at bedtime. 30 tablet 5 05/21/2021 Active Comment on above: 1 po q hs x 5 days t hen 2 (20 mg) hs Take 1 tablet by whitney th daily at bedtime. atorvastatin 10 mg oral tablet (20 sources) HMG-CoA Reductase Inhibitor Start: 06-07-2022 atorvastatin (LIPITOR) 10 mg tablet Take 10 mg by mouth. Wednesday, Wednesday, and Wednesday. 06/07/2022 Active Start: 05-14-2020 End: 05-11-2023 take 1 tablet by mouth every week Atorvastatin 10 mg tablet Discontinued 10 mg PO .COMPLEX 36 3 April 16, 2021 3:03pm May 15, 2021 8:39am 10 mg PO 3 days per week; Start: 05-16-2019 End: 05-14-2020 take 1 tablet by mouth once daily Atorvastatin 10 mg tablet Discontinued 10 mg PO DAILY 90 May 16, 2019 12:00am May 14, 2020 10:55am Comment on above: Take 10 mg by mouth once daily. Blood Glucose Monitoring Suppl (OneTouch Verio Flex System) w/Device kit (7 sources) Start: 05-14-2022 Blood Glucose Monitoring Suppl (OneTouch Verio Flex System) w/Device kit USE TO TEST ONCE DAILY 05/14/2022 Active Start: 05-14-2022 Blood Glucose Monitoring Suppl (OneTouch Verio Flex System) w/Device kit USE TO TEST ONCE DAILY 0 05/14/2022 Active Blood-Glucose Meter (Onetouc h Verio Flex Meter) misc (2 sources) Start: 05-14-2022 Blood-Glucose Meter (Onetouch Verio Flex Meter) misc Active 0 .Route 1 0 May 14, 2022 12:00am Diabetes mellitus Type 2 diabetes mellitus without complications test once a day Start: 05-14-2022 Blood-Glucose Meter (Onetouch Verio Flex Meter) misc Active 0 .Route 1 May 14, 2022 12:00am test once a day calcium citrate 950 mg / cholecalciferol 250 unt oral tablet (20 sources) Vitamin D Calcium Citrate- Vitamin D3 200 mg-6.25 mcg (250 unit) tab Take by mouth. Active Comment on above: Take by mouth. cholecalciferol 0.025 mg oral capsule (20 sources) Vitamin D take 1 capsule by mouth once daily Cholecalciferol, Vitamin D3, 25 mcg (1,000 unit) cap Take 1,000 Units by mouth once daily. Active take 1 capsule by mouth in the m orning cholecalciferol (Vitamin D-3) 25 MCG (1000 UT) capsule Take 1,000 Units by mouth in the morning. Active Comment on above: Take 1,000 Units by mouth once daily. empagliflozin 25 mg oral tablet (17 sources) Sodium-Glucose Cotransporter 2 Inhibitor Start: 11-11-19 End: 01-17-20 24 take 1 tablet by mouth once daily Empagliflozin (Jardiance) 25 mg tablet Active 25 mg PO DAILY 90 January 17, 2024 2:11pm take 10 mg by mouth once daily e mpagliflozin (Jardiance) 10 MG Take 10 mg by mouth daily. Active metFORMIN hydrochloride 1000 mg oral tablet (20 sources) Biguanide Start: 04-27-2019 End: 04-05-2024 take 1 tablet by mouth twice daily metFORMIN (GLUCOPHAGE) 1,000 mg tablet Indications: Controlled type 2 diabetes mellitus without complication, without long-term current use of insulin (HCC) Take 1 tablet by mouth twice daily. 30 tablet 04/27/2019 Active Comment on above: Take 1 tablet by whitney th twice daily. ONETOUCH VERIO FLEX METER (17 sources) Start: 05-14-2022 ONETOUCH VERIO FLEX METER USE TO TEST ONCE DAILY 05/14/2022 Active Start: 05-14-2022 ONETOUCH VERIO FLEX METER USE TO TEST ONCE DAILY 0 05/14/2022 Active Comment on above: USE TO TEST ONCE KATI LY simvastatin 20 mg oral tablet (20 sources) HMG-CoA Reductase Inhibitor Start: 10-11-19 take 1 tablet by mouth once daily at bedtime simvastatin (ZOCOR) 20 mg tablet Indications: Mixed hyperlipidemia Take 1 tablet by mouth daily at bedtime. 90 tablet 1 10/10/2018 Active Comment on above: Take 1 tablet by whitney th daily at bedtime. 100 ml zoledronic acid 0.05 mg/ml injection (7 sources) Bisphosphonate Start: 07-01-19 End: 08-16-19 Zoledronic Xizn-Xdpggyck-Ktbml 5 mg/100 mL piggyback Active 1 NMA .Route ONCE 100 0 August 15, 2024 10:25am onceinfuse over 20 minutes zoledronic acid/mannitol-water (RECLAST INTRAVENOUS) (4 sources) zoledronic acid/mannitol-water (RECLAST INTRAVENOUS) Inject intravenously. Once yearly. Endocrinology orders Active Problems Active Problems Problem Classification Problem Date Documented Da te Episodic/Chronic Diabetes mellitus without complication (20 sources) Type 2 diabetes mellitus without complication; Translations: [Diabetes mellitus] Onset: 11-11-2018 11-11-2018 Chronic Disorders of lipid metabolism (20 sources) Mixed hyperlipidemia; Translations: [Mixed hyperlipidemia] Onset: 11-11-2018 11-11-2018 Chronic Headache; including migraine (5 sources) Muscular headache ; Translations: [Tension-type headache, unspecified, not intractable] Onset: 02-01-2024 Chronic Nutritional deficiencies (20 sources) Vitamin D deficiency; Translations: [Vitamin D deficiency, unspecified] 03-18-2016 Chronic Osteoporosis (13 sources) Osteoporosis; Translations: [Age-related osteoporosis without current pathological fracture] Onset: 10-05-2023 Chronic Other gastrointestinal disorders (20 sources) Intestinal malabsorption; Translations: [Intestinal malabsorption, unspecified] 11-20-2015 Chronic Other gastrointestinal disorders (4 sources) Intestinal malabsorption, unspecified; Translations: [Unspecified intestinal malabsorption] Onset: 04-28-2024 Chronic Other gastrointestinal disorders (1 source) Other intestinal malabsorption; Translations: [Other intestinal malabsorption] Onset: 04-28-2024 Chronic Other nutritional; endocrine; and metabolic disorders (7 sources) Obesity; Translations: [Obesity, unspecified] 11-10-2022 Chronic Other nutritional; endocrine; and metabolic disorders (20 sources) Obese class I; Translations: [Obesity, unspecified] 11-20-2015 Chronic Other nutritional; endocrine; and metabolic disorders (2 sources) Obesity, unspecified; Translations: [Obesity, unspecified] Chronic Other nutritional; endocrine; and metabolic disorders (1 source) Body mass index (BMI) 30.0-30.9, adult; Translations: [Class 1 obesity with body mass index (BMI) of 30.0 to 30.9 in adult, unspecified obesity type, unspecified whether serious comorbidity present] Onset: 05-29-2024 Chronic Other nutritional; endocrine; and metabolic disorders (2 sources) Body mass index (BMI) 31.0-31.9, adult; Translations: [Class 1 obesity with body mass index (BMI) of 31.0 to 31.9 in adult, unspecified obesity type, unspecified whether serious comorbidity present] Onset: 02-01-2024 Chronic Other nutritional; endocrine; and metabolic disorders (1 source) Other obesity due to excess calories; Translations: [Other obesity due to excess calories] Onset: 04-28-2024 Chronic Other nutritional; endocrine; and metabolic disorders (2 sources) Obese class I; Translations: [Obesity (BMI 30.0-34.9)] 11-20-2015 Other screening for suspected conditions (not mental disorders or infectious disease) (12 sources) Patient encounter status; Translations: [Encounter for screening for malignant neoplasm of colon] Onset: 05-29-2024 Episodic Residual codes; unclassified (1 source) Menopause present 06-06-2024 Episodic Residual codes; unclassified (1 source) Postmenopausal state; Translations: [Asymptomatic menopausal state] 05-29-2024 Episodic Unclassified (1 source) Class 1 obesity with body mass index (BMI) of 30.0 to 30.9 in adult, unspecified obesity type, unspecified whether serious comorbidity present; Translations: [Class 1 obesity with body mass index (BMI) of 30.0 to 30.9 in adult, unspecified obesity type, unspecified whether serious comorbidity present] Onset: 05-29-2024 Unclassified (1 source) Class 1 obesity with body mass index (BMI) of 31.0 to 31.9 in adult, unspecified obesity type, unspecified whether serious comorbidity present; Translations: [Class 1 obesity with body mass index (BMI) of 31.0 to 31.9 in adult, unspecified obesity type, unspecified whether serious comorbidity present] Onset: 02-01-2024 Past or Other Problems Problem Classification Problem Date Documented Da te Episodic/Chronic E Codes: Fall (2 sources) Accidental fall ; Translations: [Fall (on) (from) other stairs and steps, sequela] Onset: 12-28-2023 12-28-2023 Episodic Immunizations and screening for infectious disease (2 sources) Viral screening status; Translations: [Encounter for screening for other viral diseases] Onset: 05-29-2024 05-29-2024 Episodic Residual codes; unclassified (1 source) Asymptomatic menopausal state; Translations: [Post-menopausal] Onset: 05-29-2024 Episodic Screening and history of mental health and substance abuse codes (2 sources) Encounter for screening for depression; Translations: [Encounter for screening examination for other mental health and behavioral disorders] Onset: 05-29-2024 Episodic Sprains and strains (6 sources) Unspecified sprain of left ring finger, initial encounter; Translations: [Sprain of hand, unspecified site] Onset: 12-21-2023 12-21-2023 Episodic Unclassified (2 sources) Sprain of left ring finger, unspecified site of digit, initial encounter 12-21-2023 Unclassified (2 sources) Patient encounter status 06-06-2024 Results Test Name Value Interpretation Reference Range Facility [facility] 06-05-2024 [facility] Telephone (FPDOYL) DIVINE GROSSMAN ([id number]) 1955 F Date Time Provider Department 06/05/24 JALEN KAUR FPDOYL During your visit today, we recorded the following information about you: Ines Schneider LPN 06/05/2024 10:17 AM Signed PubGame message sent with A1c reminder Allergies As of Date: 06/05/2024 Noted Allergy Reaction CIPROFLOXACIN 03/15/2018 7 - Swelling Comments: tongue Date Reviewed: 05/29/2024 Reviewed by: Milla Dougherty LPN - Fully Assessed Reason for Visit: Orders [681] Cmt: A1c reminder Prescriptions as of 06/05/2024 - zoledronic acid/mannitol-water (RECLAST INTRAVENOUS) Inject intravenously. Once yearly. Endocrinology orders - JARDIANCE 25 mg tablet Take 25 mg by mouth once daily. - amitriptyline (ELAVIL) 25 mg tablet Take 1 tablet by mouth daily at bedtime. - atorvastatin (LIPITOR) 10 mg tablet Take 10 mg by mouth. Wednesday, Wednesday, and Wednesday. - ONETOUCH VERIO TEST STRIPS test strip USE TO TEST ONCE DAILY - ONETOUCH VERIO FLEX METER USE TO TEST ONCE DAILY - amitriptyline (ELAVIL) 10 mg tablet Take [...] once daily. Problem List As Of Date 06/05/2024 Noted Resolved Controlled type 2 diabetes mellitus without com* Mixed hyperlipidemia [E78.2] Malabsorption [K90.9] Obesity (BMI 30.0-34.9) [E66.811] Vitamin D deficiency [E55.9] Osteoporosis [M81.0] 10/05/2023 Encounter Status:Closed by INES SCHNEIDER on 06/05/24 [facility] CNOfelia 05-29-2024 CN Office Visit (FPDOYL ) DIVINE GROSSMAN ([id number]) 1955 F Date Time Provider Department 05/29/24 8:15 AM JALEN KAURYL During your visit today, we recorded the following information about you: Temperature Pulse Blood pressure Weight 97.6 degrees 91/minute 118/78 78.9 kg Height 1.6 m Jalen Kaur DO 06/06/2024 8:05 PM Signed Divinedakotah Grossman is a 68 year old female here for a Medicare wellness visit. Medicare Health Risk Assessment General Health Very good Exercise: Minutes/Day 60 min Exercise: Days/Week 4 days Alcohol: Daily Use Monthly or less Alcohol: Drinks/Day 1 or 2 Alcohol: 6 or more drinks Never Feel off balance No Concerns: Teeth/Dentures No Concerns: Sexual function No Troubled by feelings None of the above Frequency: Eating healthy diet Nearly every day ADLs requiring help None of the above Safety precautions in home/vehicle Yes Smoke, vape, chews tobacco No Difficulty hearing No Difficulty seeing No Current Providers Specialists: I have reviewed specialist-related care of the patient in the medical record. Medical/Family history review Reviewed and updated problem list, medical/surgical/famil y/social history, medications, and allergies. Opioid use review Opioid Medications (last 90 days) No data to display Anxiety/Depression screening PHQ-2 Score: 0 (Lower risk for depression) Recommendation: no further intervention at this time Cognitive screening Mini Cog Score: 5 Cognitive screening reviewed and No further action needed (score 3-5). Functional Observation Was the patient's Timed Up AND Go test unsteady or >= 12 seconds? No Advance Care Planning Surrogate decision maker and/or advance care plan documented Patient has Living Will at home. Measurements BP 118/78 (BP Site: Left Arm, BP Position: Sitting) Pulse 91 Temp 36.4 ?C (97.6 ?F) Ht 5' 3 (1.6 m) Wt 174 lb (78.9 kg) SpO2 98% BMI 30.82 kg/m? Vision Screening: Follows with optometry/ophthalmolog y Assessment/Plan Medicare annual wellness visit, subsequent (Z00.00) - Counseled on healthy diet and regular exercise ASSESSMENT/PLAN: 1. Medicare annual wellness visit, subsequent - ICD9: V70.0, ICD10: Z00.00 (primary diagnosis) - Counseled on healthy diet and regular exercise - Follow up for annual exam in one year 2. Encounter for screening mammogram for breast cancer - ICD9: V76.12, ICD10: Z12.31 - JETT SCREENING W ROSALBA 3. Screening for diabetic retinopathy - ICD9: V80.2, ICD10: Z13.5 - CONSULT TO OPHTHALMOLOGY 4. Controlled type 2 diabetes mellitus without complication, without long-term current use of insulin (HCC) - ICD9: 250.00, ICD10: E11.9 - Control undetermined, due for labs - Managed by Endocrinology. - HEMOGLOBIN A1C - ALBUMIN/CREATININE RATIO, URINE 5. Mixed hyperlipidemia - ICD9: 272.2, ICD10: E78.2 - Control undetermined, due for labs - COMPLETE BLOOD COUNT AND DIFFERENTIAL - COMPREHENSIVE METABOLIC PANEL - LIPID PANEL, FASTING - URINALYSIS, WITH MICROSCOPIC 6. Screening for thyroid disorder - ICD9: V77.0, ICD10: Z13.29 - THYROID STIMULATING HORMONE 7. Screening for depression - ICD9: V79.0, ICD10: Z13.31 - DEPRESSION SCREENING 8. Post-menopausal - ICD9: V49.81, ICD10: Z78.0 - Order bone density. 9. Encounter for screening examination for other mental health and behavioral disorders - ICD9: V79.8, ICD10: Z13.39 - ANXIETY SCREENING 10. Special screening examination for viral disease - ICD9: V73.99, ICD10: Z11.59 - HEPATITIS C ANTIBODY IA WITH CONFIRMATION 11. Class 1 obesity with body mass index (BMI) of 30.0 to 30.9 in adult, unspecified obesity type, unspecified whether serious comorbidity present - ICD9: 278.00, V85.30, ICD10: E66.811, Z68.30 Provider Attestation: I, Jalen Kaur DO personally performed the services described in this documentation. All medical record entries made by the scribe were at my direction and in my presence. I have reviewed the chart and discharge instructions (if applicable) and agree that the record reflects my personal performance and is accurate and complete. Electronically Signed: Jalen Kaur DO, May 29, 2024 8:35 AMScribe Attestation: The patient is seen and examined by Dr. Kaur and the following reflects his/her service. Scribed by Olamide Villanueva May 29, 2024 8:43 AM DO Harshad Rich Freeland Gerard, DO 05/29/2024 8:34 AM Signed Screening schedule The following prevention plan is recommended: Depression Screening Never done Anxiety Screening Never done Hepatitis C Screening Never done DTaP,Tdap,Td Vaccine(1 - Tdap) Never done Pneumococcal Vaccine: 50+(2 of 2 - PPSV23) due on 01/11/2014 Diabetic Foot Exam due on 10/11/2019 Mammogram Screening due on 05/22/2022 Dilated Retinal Exam due on 01/18/2023 LDL Sparkle (more content not included)... Normal [facility] Creatinine and Glomerular fi ltration rate.predicted panel (S/P/Bld)on 05-23-2024 GFR/1.73 sq M.predicted among non-blacks MDRD (S/P/Bld) [Vol rate/Area] 80 mL/min/{1.73_m2} [facility] MICROALBUMIN/CREATININE UR W RATIO (EXTERNAL)on 05-23-2024 Albumin/Creat Ratio 5 [facility] Creatinine Urine 38 [facility] Microalbumin, Random urine 0.2 [facility] No Panel Informationon 05-23 [facility] Endocrinology Visit Reporton 04-28-2024 Endocrinology Visit Report [facility] [address] [place] [address] OFFICE VISIT Date of Service: 04/28/24 MR#: [id number] Acct: [id number] Name: DIVINE GROSSMAN Rep #: [id number] 13 : 1955 Provider: Ibrahima Christie Age/Sex: 68/F [place] [facility] [place] Status: Signed Intake Vital Signs 05/11/23 08:17 09/10/23 09:41 04/28/24 10:18 Height 5 ft 3.5 in 5 ft 3.5 in 5 ft 3.5 in Weight: 172 lb 4 oz BMI 30.0 BP 123/84 H Blood Pressure Location Rt brachial Position Sitting Pulse 94 Pulse Source Monitor Pulse Oximetry (%) 96 Oxygen Delivery Method room air Intake Visit Reasons: 1 Y FU Chief Complaint: DM/bone Is patient in pain?: No Allergies ciprofloxacin (From Cipro) Adverse Reaction (Mild, Verified 04/28/24 10:20) ITCHING, SWELLING Medications ???Medication ???Instructions ???Recorded ???Confirmed ???Type blood-glucose meter (OneTouch #1 ea 05/14/22 04/28/24 Rx Verio Flex Meter) amitriptyline 25 mg tablet 25 mg PO QHS 05/11/23 04/28/24 His tory atorvastatin 10 mg tablet 10 mg PO .COMPLEX #36 tabs 4 04/28/24 Rx zoledronic acid 5 mg/100 mL in 1 ea .Route ONCE #100 mL 05/11/23 04/28/24 Rx mannitol 5 %-water intravenous piggybck OneTouch Verio test strips (blood #100 ea 12/14/23 04/28/24 Rx sugar diagnostic) lancets 33 gauge (OneTouch Delica #100 ea 12/14/23 04/28/24 Rx Plus Lancet) empagliflozin 25 mg tablet 25 mg PO DAILY #90 tabs 01/17/24 0 04/28/24 Rx (Jardiance) metformin 1,000 mg tablet 1,000 mg PO BID #180 tabs 04/05/24 04/28/24 Rx Have you fallen in the past year?: No PFSH Medical History Osteoporosis Malabsorption Frequent headaches Gallstones Diabetes Cancer Frequent UTI Surgical History History of Heather-en-Y gastric bypass Family History Father Alcoholism COPD (chronic obstructive pulmonary disease) Heart disease Brother BLOOD CLOTS Sister BLOOD CLOTS Diabetes Mother Hypertension Social History Smoking Status: Never smoker alcohol intake: current alcohol intake frequency: a few times a week substance use type: does not use what type of physical activity do you participate in: walking frequency: 3-4 times per week HPI HPI Chief Complaint: DM/bone Details: DIVINE GROSSMAN, is a 68 F who presents to the office today for follow up. A1C is 6.5% She is taking Jardiance and metformin. Life has been very stressful recently, has cancer. She has osteoporosis and she is due for 4th Reclast infusion in August. ROS Const Constitutional: No fatigue or weight change ENT ENT: No dizziness/vertigo Cardio Cardiology: No chest pain at rest, chest pain with exertion, shortness of breath or palpitations Skin Skin: No wounds Endo Endocrine: No fatigue or weight change Exam Const General: cooperative, healthy appearing, comfortable, no acute distress, well developed and not cushingoid Nutritional Appearance: well nourished Orientation: alert, awake and oriented x3 HENMT Head: normal to inspection Ears: hearing grossly normal bilaterally Nose: external nose normal Mouth: oral mucosae normal Eyes General: appearance normal, both eyes and all related structures Alignment and Position: alignment normal Periorbital: periorbital findings normal Eyelids: eyelids normal Conjunctivae: conjunctivae normal Neck Neck: normal visual inspection Neck mass: No Thyroid: thyroid normal Lymphatic: no lymphadenopathy noted Chest Chest palpation inspection: normal inspection of the chest Resp Effort Inspection: normal respiratory effort, able to speak in complete sentences, symmetric chest movement, no audible wheezes and no cough Cardio Rate: regular rate Rhythm: regular rhythm GI Inspection: normal to inspection Auscultation: normal bowel sounds Palpation: soft and no hepatosplenomegaly Skin General: no rashes or lesions noted Neuro General: patient alert, patient awake and patient oriented x3 Cranial Nerves: CN's II-XI intact bilaterally Cognition: normal cognition Speech: speech normal Gait: normal gait Motor: muscle tone normal throughout Extrem General: no edema Psych Appearance: grossly normal Mental Status: mental status grossly normal Mood: congruent mood Affect: normal affect Speech and Movement: speech and movement normal Attitude: cooperative Thought Process: normal Thought Content: normal Judgment: judgment good Results POC A1C POC A1C 6.5 % Last Edit by Cedric Hussein RN on 04/28/24 10:28 Clinical Quality Measures (more content not included)... Normal [facility] HbA1c (Bld)on 04-28-2024 HbA1c (Bld) [Mass fraction] 6.5 % Abnormal 4.0 - 6.0 % [facility] Interpretation and review of laboratory results Abnormal [facility] CNOVon 02-01-2024 CNOV Office Visit (FPDOYL ) DIVINE GROSSMAN ([id number]) 1955 F Date Time Provider Department 02/01/24 4:15 PM JALEN KAUR During your visit today, we recorded the following information about you: Temperature Pulse Blood pressure Weight 97.5 degrees 65/minute 130/80 79.4 kg Height 1.6 m Jalen Kaur DO 02/13/2024 3:36 PM Signed [facility] [place] Jalen Kaur DO [address] [place] [address] Date of Evaluation: 02/01/2024 Patient Name: Divine Grossman : 1955 Chief Complaint: Patient presents with: muscle tension headache: Refill request amitriptyline Subjective Ms. Grossman is a 68 year old female who presents with the following complaint(s): The history is provided by the patient. No granite polisher machine was used. Headache This is a recurrent problem. Pertinent negatives include no palpitations and no shortness of breath. Treatments tried: Elavil. Review of Systems Constitutional: Negative for fatigue and unexpected weight change. HENT: Negative for nosebleeds. Eyes: Negative for redness and visual disturbance. Respiratory: Negative for apnea, cough and shortness of breath. Cardiovascular: Negative for chest pain, palpitations and leg swelling. Genitourinary: Negative for hematuria. Neurological: Positive for headaches. Negative for dizziness, weakness, light-headedness and numbness. Hematological: Does not bruise/bleed easily. Psychiatric/Behavioral : The patient is not nervous/anxious. PAST MEDICAL HISTORY Diagnosis Date Controlled type 2 diabetes mellitus without complication (HCC) Gastric ulcer H/O gastric bypass Malabsorption Mixed hyperlipidemia Obesity (BMI 30.0-34.9) Osteoporosis TBI (traumatic brain injury) (HCC) 2009 again in 2013 Uterine cancer (HCC) Vitamin D deficiency PAST SURGICAL HISTORY Procedure Laterality Date SNGL COLONOSCOPY SCREENING 09/21/2022 Non-bleeding internal hemorrhoids GASTRIC BYPASS HX HERNIA REPAIR HX HYSTERECTOMY HX TONSILLECTOMY AND ADENOIDECTOMY FAMILY HISTORY Problem Relation Age of Onset Stroke Mother Diabetes Sister Social History Tobacco Use Smoking status: Never Smokeless tobacco: Never Vaping Use Vaping status: Never Used Substance Use Topics Alcohol use: Yes Comment: Rare Drug use: Never Current Outpatient Medications Medication Sig JARDIANCE 25 mg tablet Take 25 mg by mouth once daily. atorvastatin (LIPITOR) 10 mg tablet Take 10 mg by mouth. Wednesday, Wednesday, and Wednesday. ONETOUCH VERIO TEST STRIPS test strip USE TO TEST ONCE DAILY ONETOUCH VERIO FLEX METER USE TO TEST ONCE DAILY metFORMIN (GLUCOPHAGE) 1,000 mg tablet Take 1 tablet by mouth twice daily. amitriptyline (ELAVIL) 25 mg tablet Take 1 tablet by mouth daily at bedtime. amitriptyline (ELAVIL) 10 mg tablet Take 1 [...] ORAL) Take by mouth. Cholecalciferol, Vitamin D3, 25 mcg (1,000 unit) cap Take 1,000 Units by mouth once daily. No current facility-administered medications for this visit. I have confirmed and edited as necessary the past medical, family and social histories, HPI, and ROS obtained by others. Objective BP 130/80 Pulse 65 Temp 97.5 Ht 5' 3 (1.60m) Wt 175 lb (79.4kg) SpO2 99% BMI 31.01 kg/(m2). Physical Exam Vitals and nursing note [...] No carotid bruit. Trachea: Trachea and phonation n (more content not included)... Normal [facility] ED Nursing Noteon 12-21-2023 ED Nursing Note Pt ambulatory on arrive, pt had a mechanical fall up unfamiliar stairs today and landed on left hand Normal [facility] ED Provider Noteon ED Provider Note [facility] ED EMERGENCY DEPARTMENT ENCOUNTER Pt Name: Divine Grossman Birthdate 1955 Date of evaluation: 12/21/2023 Provider: Moe Lewis MD CHIEF COMPLAINT Chief Complaint Patient presents with Fall Pt had a mechanical fall while going up unfamiliar steps Hand Injury Left hand injury s/p fall HISTORY OF PRESENT ILLNESS (Location/Symptom, Timing/Onset,Context/S etting, Quality, Duration, Modifying Factors, Severity) Note limiting factors. Divine Grossman is a 68 y.o. female who presents to the emergency department with fall. 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 No other injury. Complains of tenderness at the base of the fourth and fifth proximal phalanx. Left hand. No wrist pain. No knee pain. No hip pain. Not hit her head. No other injuries or complaints. Comes in to be seen. HPI Historian is the patient Nurse's notes for past medical history, surgical history, social history were reviewed. Medications and allergies reviewed. PAST MEDICAL HISTORY Past Medical History: Diagnosis Date Diabetes mellitus (HCC) TBI (traumatic brain injury) (HCC) SURGICALHISTORY Past Surgical History: Procedure Laterality Date CHOLECYSTECTOMY GASTRIC BYPASS HERNIA REPAIR HYSTERECTOMY CURRENT MEDICATIONS Previous Medications AMITRIPTYLINE (ELAVIL) 10 MG TABLET Take 1 tablet by mouth Nightly. ATORVASTATIN (LIPITOR) 10 MG TABLET BLOOD GLUCOSE MONITORING SUPPL (Switchcam VERIO FLEX SYSTEM) W/DEVICE KIT USE TO TEST ONCE DAILY CALCIUM-CHOLECALCIFERO L 200-6.25 MG-MCG TABLET Take by mouth. CHOLECALCIFEROL (VITAMIN D-3) 25 MCG (1000 UT) CAPSULE Take 1,000 Units by mouth in the morning. EMPAGLIFLOZIN (JARDIANCE) 10 MG Take 10 mg by mouth daily. METFORMIN (GLUCOPHAGE) 1000 MG TABLET ONETOUCH VERIO TEST STRIP USE TO TEST ONCE DAILY Ciprofloxacin FAMILY HISTORY No family history on file. SOCIAL HISTORY Social History Socioeconomic History Marital status: Tobacco Use Smoking status: Never Smokeless tobacco: Never Substance and Sexual Activity Alcohol use: Yes Drug use: Never SCREENINGS PHYSICAL EXAM (up to 7 for level 4, 8 or more for level 5) @EDTRIAGEVSS@ Appropriate PPE including n 95, gown, gloves, goggles where worn when appropriate with this patient. Physical Exam Examination left upper extremity tenderness and abrasion to the distal fifth and fourth metacarpal into the proximal fifth and fourth phalanx region. There is soft tissue swelling especially base of the fourth. No third second or thumb tenderness. No proximal meta carpal tenderness. No wrist tenderness. No tenderness of the knees. No elbow or shoulder tenderness to the left. DIAGNOSTIC RESULTS RADIOLOGY: Interpretation per the Radiologist below, if availableat the time of this note: XR hand 3+ views left Final Result No acute osseous process. Report Dictated on Electronically Signed By: Cynthia Rizo MD Electronically Signed Date/Time: 12/21/2023 6:19 PM EST ED BEDSIDE ULTRASOUND: Performed by ED Physician - none LABS: Labs Reviewed - No data to display All other labs were within normal range or not returned as of thisdictation. EMERGENCYDEPARTMENT COURSE and DIFFERENTIAL DIAGNOSIS/MDM: Vitals: Vitals: 12/21/23 1722 BP: 137/79 BP Location: Right arm Patient Position: Lying Pulse: 96 Resp: 18 Temp: 36.4 ?C (97.6 ?F) TempSrc: Temporal SpO2: 97% Weight: 77.1 kg (170 lb) Height: 1.6 m (5' 3) Medical Decision Making EMERGENCY DEPARTMENT COURSE and DIFFERENTIAL DIAGNOSIS/MDM: Vitals: Vitals: 12/21/23 1722 BP: 137/79 BP Location: Right arm Patient Position: Lying Pulse: 96 Resp: 18 Temp: 36.4 ?C (97.6 ?F) TempSrc: Temporal SpO2: 97% Weight: 77.1 kg (170 lb) Height: 1.6 m (5' 3) The patient presented with a chief complaint of fall and left hand pain. The differential diagnosis associated with this patient's presentation includes sprain contusion fracture dislocation. Our workup consisted of ordering/reviewing x-ray of the left hand. I believe she has a left fourth and fifth finger sprain. Will place her in aluminum splint to the fourth finger with aileen taping to the third finger. She has good range of motion of the fifth finger but limited full range of motion secondary to pain of the ring finger on the left. Normal capillary refill no signs of dislocation. Will give her sports medicine for follow-up. Aluminum splint applied by nursing staff I rechecked that she is neurologically neurovascular intact after splint is applied. Patient agrees to plan. Starting a couple days come out of the splint and do gentle range of motion and then go back in the splint for comfort. Ice to the area. Advised her that she should not stay in the splint too long as it can get very stiff b (more content not included)... Normal [facility] XR Hand - left 3 Viewson No acute osseous process. Report Dictated on Electronically Signed By: Cynthia Rizo MD Electronically Signed Date/Time: 12/21/2023 6:19 PM EST [facility] Patient Name: DIVINE GROSSMAN : 1955 Exam Date/Time: 12/21/2023 18:10 Procedure: XR HAND 3+ VIEWS LEFT Ordering Provider: LEWIS GREGORY Reason For Exam: Fall with injury to the base of the left fourth and fifth proximal phalanx INDICATION: Fall with injury to the base of the left fourth and fifth proximal phalanx. VIEWS: Left hand PA, oblique, lateral-3 images COMPARISON: 06/16/2022 FINDINGS: The metacarpals and phalanges are intact. The joint spaces appear maintained. Mild degenerative changes fifth digit PIP and DIP joint. [facility] Cynthia Rizo MD - 12/21/2023 Patient Name: DIVINE GROSSMAN : 1955 Exam Date/Time: 12/21/2023 18:10 Procedure: XR HAND 3+ VIEWS LEFT Ordering Provider: LEWIS GREGORY Reason For Exam: Fall with injury to the base of the left fourth and fifth proximal phalanx INDICATION: Fall with injury to the base of the left fourth and fifth proximal phalanx. VIEWS: Left hand PA, oblique, lateral-3 images COMPARISON: 06/16/2022 FINDINGS: The metacarpals and phalanges are intact. The joint spaces appear maintained. Mild degenerative changes fifth digit PIP and DIP joint. IMPRESSION: No acute osseous process. Report Dictated on Electronically Signed By: Cynthia Rizo MD Electronically Signed Date/Time: 12/21/2023 6:19 PM EST [facility] Study observation (narrative) [facility] XR Hand - left 3 ViewsOrdere d By: Cynthia Rizo on 12-21-2023 [facility] Work Phone: HbA1c (Bld)on 05-11-2023 HbA1c (Bld) [Mass fraction] 6.4 % Abnormal 4.0 - 6.0 % [facility] Interpretation and review of laboratory results Abnormal [facility] Absolute lymphocyte countOrd ered By: Mikel Price on 04-26-2023 Lymphocytes Auto (Unsp spec) [#/Vol] 1.28 10*3/uL 0.83-4.51 [facility] Automated lymphocyte count a s percentage of total leukocytesOrdered By: Mikel Price on 04-26-2023 Lymphocytes/100 WBC Auto (Unsp spec) 19.7 % 19-41 [facility] Basophil percentageOrdered B y: Mikel Price on 04-26-2023 Basophils/100 WBC (Bld) 0.6 % 0-1 [facility] Bilirubin [Mass/Vol] 0.40 mg/dL 0.20-1.00 [facility] Comment on above: For patients on eltr ombopag therapy, use of Dimension Casey TBIL is not recommended. Chloride [Moles/Vol] 108 mmol/L 98-107 [facility] Cholesterol [Mass/Vol] 147 mg/dL <200 [facility] Comment on above: <200 mg/dL Desirable 200-240 mg/dL Borderline >240 mg/dL High Risk Eosinophils/100 WBC (Bld) 1.8 % 0-5 [facility] Glucose [Mass/Vol] 113 mg/dL 74-106 [facility] Comment on above: Fasting Glucose resu lt from 100 to 125 mg/dL suggests IMPAIRED HOMEOSTASIS per A.D.A. criteria. Hemoglobin (Bld) [Mass/Vol] 13.6 g/dL 12.0-15.0 [facility] Monocytes/100 WBC (Bld) 9.7 % 0-10 [facility] Neutrophils (Bld) [#/Vol] 4.4 10*3/uL 2.0-7.7 [facility] Neutrophils/100 WBC (Bld) 68.0 % 47-70 [facility] Potassium [Moles/Vol] 4.0 mmol/L 3.5-5.1 [facility] Protein [Mass/Vol] 6.9 g/dL 6.4-8.2 [facility] Sodium [Moles/Vol] 141 mmol/L 136-145 [facility] Triglyceride [Mass/Vol] 74 mg/dL <199 [facility] Comment on above: The drugs N-Acetylcy steine and Metamizole may falsely depress this assay.Serum Triglycerides Reference Interval Normal <150 mg/dL Borderline high 150 - 199 mg/dL High 200 - 499 mg/dL Very High > or = 500 mg/dL WBC (Bld) [#/Vol] 6.5 10*3/uL 4.4-11.0 [facility] Determination of erythrocyte mean corpuscular volume (MCV)Ordered By: Mikel Price on 04-26-2023 MCV (RBC) [Entitic vol] 94.1 fL 81-99 [facility] Erythrocyte distribution wid th ratioOrdered By: Mikel Price on 04-26-2023 Erythrocyte distribution width (RBC) [Ratio] 13.3 % 11.6-14.6 [facility] Erythrocyte distribution wid th standard deviationOrdered By: Mikel Price on 04-26-2023 Erythrocyte distribution width (RBC) [Entitic vol] 45.4 fL 35.1-43.9 [facility] Hematocrit Auto (Bld) [Volum e fraction]Ordered By: Mikel Price on 04-26-2023 Hematocrit (Bld) [Volume fraction] 42.8 % 37-47 [facility] Immature granulocytes/100 WB C Auto (Bld)Ordered By: Mikel Price on 04-26-2023 Immature granulocytes/100 WBC (Bld) 0.200 % 0.0-0.9 [facility] Comment on above: IG% - Immature Granu locytes (promyelocytes, myelocytes and metamyelocytes) > 1% indicates that a LEFT SHIFT is Present. Laboratory - Chemistry and C hemistry - challengeOrdered By: Mikel Price on 04-26-2023 Albumin/Globulin [Mass ratio] 1.0 {ratio} 0.9-2.4 [facility] ALP [Catalytic activity/Vol] 54 U/L 45-117 [facility] ALT [Catalytic activity/Vol] 22 U/L 13-56 [facility] Cholesterol in HDL [Mass/Vol] 60 mg/dL >40 [facility] Comment on above: The drugs N-Acetylcy steine and Metamizole may falsely depress this assay. Reference Range HDL <40 mg/dL Low HDL Cholesterol HDL >or= 60 mg/dL High HDL Cholesterol Cholesterol in LDL [Mass/Vol] 72 mg/dL 0-130 [facility] CO2 [Moles/Vol] 27.0 mmol/L 21.0-32.0 [facility] Cobalamin (Vitamin B12) [Mass/Vol] 350 pg/mL 211-911 [facility] Ferritin [Mass/Vol] 22 ng/mL 8-252 [facility] Globulin (S) [Mass/Vol] 3.5 g/dL 2.2-4.2 [facility] Urea nitrogen/Creatinine [Mass ratio] 14.3 mg/mg 10-20 [facility] Laboratory - Hematology and Cell countsOrdered By: Mikel Price on 04-26-2023 MCH (RBC) [Entitic mass] 29.9 pg 27.0-32.0 [facility] MCHC (RBC) [Mass/Vol] 31.8 g/dL 32-36 [facility] Nucleated RBC/100 WBC (Bld) [Ratio] 0 % 0-5 [facility] Platelet mean volume (Bld) [Entitic vol] 10.7 fL 6.2-12.0 [facility] Platelets (Bld) [#/Vol] 324 10*3/uL 150-450 [facility] MICROALBUMIN/CREATININE UR W RATIO (EXTERNAL)on 04-26-2023 Albumin/Creat Ratio 15.7 [facility] Creatinine Urine 36.40 [facility] Microalbumin, Random urine 5.7 [facility] No Panel InformationOrdered By: Mikel Price on 04-26-2023 Estimated GFR (MDRD) Amer 87 mL/min >60 [facility] Comment on above: GFR Calc Estimated GFR (MDRD) Non-Af Amer 72 mL/min >60 [facility] Comment on above: Non- GFR Calc Urine Microalbumin/Creatinin e Ratio 15.7 mg/g CRE <30 [facility] Vitamin D 25-Hydroxy 26.4 ng/mL [facility] Comment on above: Vitamin D 25(OH) Sta tus Range Deficiency <20 ng/mL (50nmol/L) Insufficiency 20 - 30 ng/mL (50 - 75 nmol/L) Sufficiency 30 - 100 ng/mL (75 - 250 nmol/L) Toxicity >100 ng/mL (>250 nmol/L) VLDL Cholesterol 15 mg/dL 5-40 [facility] RBC Auto (Bld) [#/Vol]Ordere d By: Mikel Price on 04-26-2023 RBC (Bld) [#/Vol] 4.55 10*6/uL 4.2-5.4 [facility] Serum or plasma calcium priti urement (mass/volume)Ordered By: Mikel Price on 04-26-2023 Calcium [Mass/Vol] 8.9 mg/dL 8.5-10.1 [facility] Serum or plasma creatinine m easurement (mass/volume)Ordered By: Mikel Price on 04-26-2023 Creatinine [Mass/Vol] 0.84 mg/dL 0.55-1.02 [facility] Comment on above: The validity of the calculated GFR & GFRAA in patients over 70 years has not been determined. Clinical correlation is essential. Serum or plasma thyroid stim ulating hormone (TSH) measurement (units/volume)Ordered By: Mikel Price on 04-26-2023 TSH Qn 1.45 uIU/mL 0.358-3.74 [facility] Serum or plasma urea nitroge n measurement (mass/volume)Ordered By: Mikel Price on 04-26-2023 Urea nitrogen [Mass/Vol] 12 mg/dL 7-18 [facility] Thin prep Papanicolaou smear with manual screeningOrdered By: Mikel Price on 04-26-2023 Thin prep Papanicolaou smear with manual screening 3.4 g/dL 3.2-5.0 [facility] Thin prep Papanicolaou smear with manual screening 18 U/L 15-37 [facility] Thin prep Papanicolaou smear with manual screening 6 5-15 [facility] Thin prep Papanicolaou smear with manual screening 5.7 mg/L NO RANGE EST. [facility] Urine creatinine measurement (mass/volume)Ordered By: Mikel Price on 04-26-2023 Creatinine (U) [Mass/Vol] 36.40 mg/dL NO RANGE EST. [facility] Colonoscopy Study observatio non 09-21-2022 [facility] Gastrointestinal Endoscopy Patient Name: Divine Grossman Procedure Date: 09/21/2022 8:31 AM Date of : 1955 Admit Type: Outpatient Age: 66 Room: [place] [address] Gender: Female Note Status: Finalized Attending MD: Kory Serna MD Procedure: Colonoscopy Indications: Screening for colorectal malignant neoplasm Providers: Kory Serna MD Patient Profile: Refer to note in patient chart for documentation of history and physical. Last Colonoscopy: more than 10 years ago. Referring Physician: Kory Serna MD (Referring MD) Medicines: Monitored Anesthesia Care Complications: No immediate complications. Requesting Provider: Procedure: Pre-Anesthesia Assessment: - Prior to the procedure, a History and Physical was performed, and patient medications and allergies were reviewed. The patient's tolerance of previous anesthesia was also reviewed. The risks and benefits of the procedure and the sedation options and risks were discussed with the patient. All questions were answered, and informed consent was obtained. Prior Anticoagulants: The patient has taken no anticoagulant or antiplatelet agents. ASA Grade Assessment: II - A patient with mild systemic disease. After reviewing the risks and benefits, the patient was deemed in satisfactory condition to undergo the procedure. After I obtained informed consent, the scope was passed under direct vision. Throughout the procedure, the patient's blood pressure, pulse, and oxygen saturations were monitored continuously. The Colonoscope was introduced through the anus and advanced to the cecum, identified by appendiceal orifice and ileocecal valve. I was present and participated during the entire procedure, including non-brown portions, and during the administration and monitoring of Moderate Sedation. The colonoscopy was performed without difficulty. The patient tolerated the procedure well. The quality of the bowel preparation was good. The ileocecal valve, appendiceal orifice, and rectum were photographed. Moderate Sedation: MAC anesthesia was administered by the anesthesia team. Findings: The perianal and digital rectal examinations were normal. Non-bleeding internal hemorrhoids were found during retroflexion. The hemorrhoids were medium-sized. The exam was otherwise normal throughout the examined colon. Impression: - Non-bleeding internal hemorrhoids. - No specimens collected. Recommendation: - Patient has a contact number available for emergencies. The signs and symptoms of potential delayed complications were discussed with the patient. Return to normal activities tomorrow. Written discharge instructions were provided to the patient. - Resume previous diet. - Continue present medications. - Return to referring physician as previously scheduled. - Repeat colonoscopy in 10 years for screening purposes. Procedure Code(s): --- Professional --- 42687, Colonoscopy, flexible; diagnostic, including collection of specimen(s) by brushing or washing, when performed (separate procedure) CPT copyright 2020 [employer]. All rights reserved. The codes documented in this report are preliminary and upon border police review may be revised to meet current compliance requirements. Attending Participation: I personally performed the entire procedure. Scope In: 8:43:06 AM Scope Out: 8:59:16 AM MD Kory Sanchez MD 09/21/2022 9:04:45 AM This report has been signed electronically by Kory Serna MD Number of Addenda: 0 Note Initiated On: 09/21/2022 8:31 AM Estimated Blood Loss: Christelle (more content not included)... [facility] Radiology Study observation (narrative) [facility] XR Hand - left 3 Viewson No acute osseous abnormality. Report Dictated on Electronically Signed By: Margie Harrison Electronically Signed Date/Time: 06/16/2022 10:42 AM [facility] EMERGENCY [facility]PART[facility] RADIOLOGY SYSTEM Patient Name: DIVINE GROSSMAN : 1955 Exam Date/Time: 06/16/2022 10:17 Procedure: XR HAND 3+ VIEWS LEFT Ordering Provider: KOWALSKI VIJAY Reason For Exam: TRAUMA LEFT HAND: CLINICAL INDICATION: TRAUMA. Pain and swelling of the ulnar styloid and the fifth metacarpal TECHNIQUE: PA, Lat, and oblique COMPARISON: None. FINDINGS: Diffuse osteopenia. No acute fracture. No dislocation. No significant arthritic change is identified. No worrisome osseous lesion is identified. There is no significant soft tissue abnormality. [facility] Margie Harrison M D - 06/16/2022 Patient Name: DIVINE GROSSMAN : 1955 Exam Date/Time: 06/16/2022 10:17 Procedure: XR HAND 3+ VIEWS LEFT Ordering Provider: KOWALSKI VIJAY Reason For Exam: TRAUMA LEFT HAND: CLINICAL INDICATION: TRAUMA. Pain and swelling of the ulnar styloid and the fifth metacarpal TECHNIQUE: PA, Lat, and oblique COMPARISON: None. FINDINGS: Diffuse osteopenia. No acute fracture. No dislocation. No significant arthritic change is identified. No worrisome osseous lesion is identified. There is no significant soft tissue abnormality. IMPRESSION: No acute osseous abnormality. Report Dictated on Electronically Signed By: Margie Harrison Electronically Signed Date/Time: 06/16/2022 10:42 AM EDT [facility] Study observation (narrative) [facility] XR Hand - left 3 ViewsOrdere d By: Margie Harrison on 06-16-2022 [facility] Work Phone: XR Wrist - left 3 Viewson No acute osseous abnormality. Report Dictated on Electronically Signed By: Margie Harrison Electronically Signed Date/Time: 06/16/2022 10:45 AM EDT [facility] Patient Name: DIVINE GROSSMAN : 1955 Exam Date/Time: 06/16/2022 10:18 Procedure: XR WRIST 3+ VIEWS LEFT Ordering Provider: KOWALSKI VIJAY Reason For Exam: TRAUMA LEFT WRIST: CLINICAL INDICATION: TRAUMA TECHNIQUE: PA, lateral, and oblique COMPARISON: None. FINDINGS: Diffuse osteopenia. No acute fracture. No dislocation. No worrisome osseous lesion is identified. There is no significant soft tissue abnormality. [facility] Margie Harrison M D - 06/16/2022 Patient Name: DIVINE GROSSMAN : 1955 Exam Date/Time: 06/16/2022 10:18 Procedure: XR WRIST 3+ VIEWS LEFT Ordering Provider: KOWALSKI VIJAY Reason For Exam: TRAUMA LEFT WRIST: CLINICAL INDICATION: TRAUMA TECHNIQUE: PA, lateral, and oblique COMPARISON: None. FINDINGS: Diffuse osteopenia. No acute fracture. No dislocation. No worrisome osseous lesion is identified. There is no significant soft tissue abnormality. IMPRESSION: No acute osseous abnormality. Report Dictated on Electronically Signed By: Margie Harrison Electronically Signed Date/Time: 06/16/2022 10:45 AM EDT [facility] Radiology Study observation (narrative) [facility] XR Wrist - left 3 ViewsOrder ed By: Margie Harrison on 06-16-2022 [facility] Work Phone: HbA1c (Bld)on 05-14-2022 HbA1c (Bld) [Mass fraction] 6.7 % Abnormal 4.0 - 6.0 % [facility] LIPID PANEL (OUTSIDE)on 04-16 Cholesterol [Mass/Vol] 138 mg/dL [facility] Cholesterol in HDL [Mass/Vol] 65 mg/dL [facility] LDL Cholesterol [facility] LDL:HDL Ratio [facility] Non-HDL Cholesterol [facility] TC:HDL Ratio [facility] Triglyceride [Mass/Vol] 87 mg/dL [facility] VLDL Cholesterol [facility] MICROALBUMIN/CREATININE UR W RATIO (EXTERNAL)on 05-05-2022 Albumin/Creat Ratio 6.8 [facility] Creatinine Urine 48.90 [facility] Microalbumin, Random urine 13.9 [facility] Basophil percentageon 2021 Bilirubin [Mass/Vol] 0.50 mg/dL 0.20-1.00 [facility] Work Phone: Comment on above: For patients on eltr ombopag therapy, use of Dimension Casey TBIL is not recommended. Chloride [Moles/Vol] 106 mmol/L 98-107 [facility] [facility] Work Phone: Cholesterol [Mass/Vol] 133 mg/dL <200 [facility] Work Phone: Comment on above: <200 mg/dL Desirable 200-240 mg/dL Borderline >240 mg/dL High Risk Glucose [Mass/Vol] 134 mg/dL 74-106 [facility] Work Phone: Comment on above: Fasting Glucose resu lt greater than or equal to 126 mg/dL suggests DIABETES MELLITUS per A.D.A. criteria. Potassium [Moles/Vol] 4.3 mmol/L 3.5-5.1 [facility] Work Phone: Protein [Mass/Vol] 7.0 g/dL 6.4-8.2 [facility] Work Phone: Sodium [Moles/Vol] 140 mmol/L 136-145 [facility] Work Phone: Triglyceride [Mass/Vol] 78 mg/dL [facility] Work Phone: Comment on above: The drugs N-Acetylcy steine and Metamizole may falsely depress this assay.Serum Triglycerides Reference Interval Normal <150 mg/dL Borderline high 150 - 199 mg/dL High 200 - 499 mg/dL Very High > or = 500 mg/dL Laboratory - Chemistry and C hemistry - challengeon 05-07-2021 ALP [Catalytic activity/Vol] 63 U/L 45-117 [facility] Work Phone: ALT [Catalytic activity/Vol] 25 U/L 13-56 [facility] Work Phone: CO2 [Moles/Vol] 28.0 mmol/L 21.0-32.0 [facility] Work Phone: Cobalamin (Vitamin B12) [Mass/Vol] 362 pg/mL 211-911 [facility] Work Phone: Globulin (S) [Mass/Vol] 3.3 g/dL 2.2-4.2 [facility] Work Phone: Magnesium [Mass/Vol] 2.2 mg/dL 1.6-2.6 [facility] Work Phone: Urea nitrogen/Creatinine [Mass ratio] 8.4 mg/mg 10-20 [facility] Work Phone: No Panel Informationon 05-07 Estimated GFR (MDRD) Amer 88 mL/min >60 [facility] Work Phone: Comment on above: GFR Calc Estimated GFR (MDRD) Non-Af Amer 73 mL/min >60 [facility] Work Phone: Comment on above: Non- GFR Calc Thyroid Stimulating Hormone (TSH) 0.78 uIU/mL 0.358-3.74 [facility] Work Phone: Urine Microalbumin/Creatinin e Ratio 27.0 mg/g CRE <30 [facility] Work Phone: Vitamin D 25-Hydroxy 27.0 ng/mL [facility] Work Phone: Comment on above: Vitamin D 25(OH) Sta tus Range Deficiency <20 ng/mL (50nmol/L) Insufficiency 20 - 30 ng/mL (50 - 75 nmol/L) Sufficiency 30 - 100 ng/mL (75 - 250 nmol/L) Toxicity >100 ng/mL (>250 nmol/L) Serum or plasma albumin priti urement (mass/volume)on 05-07-2021 Albumin [Mass/Vol] 3.7 g/dL 3.2-5.0 [facility] Work Phone: Serum or plasma albumin/glob ulin mass ratioon 05-07-2021 Albumin/Globulin [Mass ratio] 1.1 {ratio} 0.9-2.4 [facility] Work Phone: Serum or plasma calcium priti urement (mass/volume)on 05-07-2021 Calcium [Mass/Vol] 9.3 mg/dL 8.5-10.1 [facility] Work Phone: Serum or plasma cholesterol in HDL measurement (mass/volume)on 05-07-2021 Cholesterol in HDL [Mass/Vol] 60 mg/dL [facility] Work Phone: Comment on above: The drugs N-Acetylcy steine and Metamizole may falsely depress this assay. Reference Range HDL <40 mg/dL Low HDL Cholesterol HDL >or= 60 mg/dL High HDL Cholesterol Serum or plasma cholesterol in VLDL measurement (mass/volume)on 05-07-2021 Cholesterol in VLDL [Mass/Vol] 16 mg/dL 5-40 [facility] Work Phone: Serum or plasma creatinine m easurement (mass/volume)on 05-07-2021 Creatinine [Mass/Vol] 0.83 mg/dL 0.55-1.02 [facility] Work Phone: Comment on above: The validity of the calculated GFR & GFRAA in patients over 70 years has not been determined. Clinical correlation is essential. Serum or plasma low density lipoprotein (LDL) cholesterol measurement (mass/volume)on 05-07-2021 Cholesterol in LDL [Mass/Vol] 57 mg/dL 0-130 [facility] Work Phone: Serum or plasma urea nitroge n measurement (mass/volume)on 05-07-2021 Urea nitrogen [Mass/Vol] 7 mg/dL 7-18 [facility] Work Phone: Serum or plasma zinc measure ment (mass/volume)on 05-07-2021 Zinc [Mass/Vol] 73 ug/dL [facility] Work Phone: Comment on above: Detection Limit = 5P erformed at: [facility] - [facility] [address] [id number] Director: Isabel Damon MD, Phone: [phone] Thin prep Papanicolaou smear with manual screeningon 05-07-2021 Thin prep Papanicolaou smear with manual screening 21 U/L 15-37 [facility] Work Phone: Thin prep Papanicolaou smear with manual screening 6 5-15 [facility] Work Phone: Thin prep Papanicolaou smear with manual screening 9.0 mg/L NO RANGE EST. [facility] Work Phone: Urine creatinine measurement (mass/volume)on 05-07-2021 Creatinine (U) [Mass/Vol] 33.20 mg/dL NO RANGE EST. [facility] Work Phone: Whole blood hemoglobin A1c/t otal hemoglobin ratio (mass fraction)on 05-07-2021 HbA1c (Bld) [Mass fraction] 6.2 % 3.8-5.6 [facility] Work Phone: Comment on above: Normal < 5.7 % Predi abetic 5.7 - 6.4 % Diabetic >or= 6.5 % Please note range changes. Total 25-OH Vitamin Don 09-16 Total 25-OH Vitamin D 24.5 ng/mL Low 30.0-100.0 [facility] Comment on above: Performed By: #### 2 5VD1 ####[facility] [place] [address] Comprehensive Panelon 2018 ALP [Catalytic activity/Vol] 62 U/L Normal 45-117 [facility] Comment on above: Performed By: #### P 14 #### [facility] [address] [place] [address] Protein [Mass/Vol] 6.7 g/dL Normal 6.4-8.2 [facility] Comment on above: Performed By: #### P 14 #### [facility] [address] [place], [place] [address] Bilirubin [Mass/Vol] 0.3 mg/dL Normal 0.2-1.0 [facility] Comment on above: Performed By: #### P 14 #### [facility] [address] [place], [place] [address] ALT [Catalytic activity/Vol] 29 U/L Normal 12-78 [facility] Comment on above: Performed By: #### P 14 #### [facility] [address] [place], [place] [address] AST [Catalytic activity/Vol] 23 U/L Normal 15-37 [facility] Comment on above: Performed By: #### P 14 #### [facility] [address] [place], [place] [address] Creatinine [Mass/Vol] 0.79 mg/dL Normal 0.51-0.95 [facility] Comment on above: Performed By: #### P 14 #### [facility] [address] [place], [place] [address] Albumin [Mass/Vol] 3.9 g/dL Normal 3.4-5.0 [facility] Comment on above: Performed By: #### P 14 #### [facility] [address] [place], [place] [address] Anion gap [Moles/Vol] 10 mmol/L Normal 8-16 [facility] Comment on above: Performed By: #### P 14 #### [facility] [address] [place], [place] [address] CO2 [Moles/Vol] 29 mmol/L Normal 21-32 [facility] Comment on above: Performed By: #### P 14 #### [facility] [address] [place], [place] [address] Glucose [Mass/Vol] 91 mg/dL Normal 70-99 [facility] Comment on above: Performed By: #### P 14 #### [facility] [address] [place], [place] [address] Calcium [Mass/Vol] 9.3 mg/dL Normal 8.5-10.1 [facility] Comment on above: Performed By: #### P 14 #### [facility] [address] [place] [address] Urea nitrogen [Mass/Vol] 8 mg/dL Normal 7-18 [facility] Comment on above: Performed By: #### P 14 #### [facility] [address] [place] [address] Chloride [Moles/Vol] 107 mmol/L Normal 98-107 [facility] Comment on above: Performed By: #### P 14 #### [facility] [address] [place] [address] Potassium [Moles/Vol] 4.3 mmol/L Normal 3.5-5.1 [facility] Comment on above: Performed By: #### P 14 #### [facility] [address] [place] [address] Sodium [Moles/Vol] 142 mmol/L Normal 136-145 [facility] Comment on above: Performed By: #### P 14 #### [facility] [address] [place] [address] Ferritinon 10-10-2018 Ferritin [Mass/Vol] 41.60 ng/mL Normal 8.00-252.00 [facility] Comment on above: Performed By: #### F ERR #### [facility] [address] [place] [address] Folateon 10-10-2018 Folate 24.30 ng/mL High 3.10-17.50 [facility] Comment on above: Performed By: #### F OL ####[place] [address] Lipid Profileon 10-10-2018 Cholesterol in HDL [Mass/Vol] 62 mg/dL Normal >40 [facility] Comment on above: Performed By: #### L IPD2 #### [place] [address] Cholesterol in LDL [Mass/Vol] 54 mg/dL Normal [facility] Comment on above: Result Comment: No C AD and with fewer than 2 CAD risk factors <160 mg/dL No CAD but with 2 or more CAD risk factors <130 mg/dL Definite CAD or other atherosclerotic disease <100 mg/dL Performed By: #### L IPD2 #### [facility] [address] [place], [place] [address] Cholesterol in LDL/Cholesterol in HDL [Mass ratio] 0.9 Normal 0.6-3.6 [facility] Comment on above: Result Comment: LDL, VLDL,LDL/HDL, Invalid if Triglyceride >400 Performed By: #### L IPD2 #### [facility] [address] [place], [place] [address] Cholesterol.total/Chol esterol in HDL [Mass ratio] 2.1 {ratio} Normal 1.8-5.3 [facility] Comment on above: Performed By: #### L IPD2 #### [facility] [address] [place], [place] [address] Cholesterol [Mass/Vol] 131 mg/dL Normal 0-199 [facility] Comment on above: Result Comment: <200 Desirable 200-240 Borderline >240 High Performed By: #### L IPD2 #### [address] [address] Cholesterol in VLDL [Mass/Vol] 15 mg/dL Normal <50 Desired [facility] Comment on above: Performed By: #### L IPD2 #### [address] [address] Triglyceride [Mass/Vol] 73 mg/dL Normal 0-149 [facility] Comment on above: Result Comment: < 20 0 Desirable Result invalid if not a fasting specimen. Performed By: #### L IPD2 #### [address] [address] MDRD GFRon 10-10-2018 GFR/1.73 sq M predicted among non-blacks MDRD (S/P/Bld) [Vol rate/Area] mL/min/{1.73_m2} Normal >60mL/min/1.7 3m2 [facility] Comment on above: Result Comment: If t he patient is , multiply the result by 1.210. Performed By: #### G FR #### [facility] [address] [place], [place] [address] Microalb/Creat, Randomon MA/Creat Ratio 11.51 mg/g Normal 0.10-30.00 [facility] Comment on above: Performed By: #### M ALBR #### [facility] [address] [place], [place] [address] Microalbumin,Random 0.71 mg/dL Normal 0.20-2.50 [facility] Comment on above: Performed By: #### M ALBR #### [facility] [address] [place], [place] [address] Creatinine,Urine 61.7 mg/dL Normal [facility] Comment on above: Performed By: #### M ALBR #### [facility] [address] [place], [place] [address] TSH, 3rd generationon 2018 TSH, 3rd generation 0.734 uIU/mL Normal 0.358-3.740 [facility] Comment on above: Performed By: #### T SH3 #### [facility] [address] [place] [address] Vitamin B12on 10-10-2018 Cobalamin (Vitamin B12) [Mass/Vol] 526 pg/mL Normal 193-986 [facility] Comment on above: Performed By: #### B 12 #### [place] [address] CT CERVICAL SPINE W/O CONTRA ST [id number] 03-15-2018 CT CERVICAL SPINE W/O CONTRAST [address] Performed at [facility] APPROVED BY: Chaya Garcia MD EXAMINATION: CT HEAD W/O CONTRAST 76615, CT CERVICAL SPINE W/O CONTRAST [address]66 CLINICAL HISTORY: Head and neck injury secondary to a fall TECHNIQUE: Serial axial images without IV contrast were obtained through the head and cervical spine. Reconstructed images were generated. MQ: CTBWO_3 CT Dose-Length Product: 1165 mGy*cm CT Dose Reduction Employed: 5. No dose reduction techniques were required. COMPARISON: None. Head CT: There is no evidence for recent intracranial hemorrhage, mass lesion, or recent infarction. There is no skull fracture. The visualized portions of the paranasal sinuses and mastoid air cells are clear. There is a prominent superficial scalp hematoma superiorly and posteriorly. CT CERVICAL SPINE: There is no evidence for cervical spinal fracture or dislocation. Alignment is normal. There is mild to moderate multilevel degenerative disc disease at the lower cervical spine. Paraspinal soft tissues are within normal limits. IMPRESSION: Scalp hematoma without acute intracranial abnormality. No acute process is noted involving the cervical spine. Normal [facility] CT HEAD W/O CONTRAST [id number] 03-15-2018 CT HEAD W/O CONTRAST [address]77 Performed at [facility] APPROVED BY: Chaya Garcia MD EXAMINATION: CT HEAD W/O CONTRAST 32094, CT CERVICAL SPINE W/O CONTRAST [address]447 CLINICAL HISTORY: Head and neck injury secondary to a fall TECHNIQUE: Serial axial images without IV contrast were obtained through the head and cervical spine. Reconstructed images were generated. MQ: CTBWO_3 CT Dose-Length Product: 1165 mGy*cm CT Dose Reduction Employed: 5. No dose reduction techniques were required. COMPARISON: None. Head CT: There is no evidence for recent intracranial hemorrhage, mass lesion, or recent infarction. There is no skull fracture. The visualized portions of the paranasal sinuses and mastoid air cells are clear. There is a prominent superficial scalp hematoma superiorly and posteriorly. CT CERVICAL SPINE: There is no evidence for cervical spinal fracture or dislocation. Alignment is normal. There is mild to moderate multilevel degenerative disc disease at the lower cervical spine. Paraspinal soft tissues are within normal limits. IMPRESSION: Scalp hematoma without acute intracranial abnormality. No acute process is noted involving the cervical spine. Normal [facility] ELBOW SPECIAL VIEWS AP/LAT/O THER LEFTon 03-15-2018 ELBOW SPECIAL VIEWS AP/LAT/OTHER LEFT Performed at [facility] APPROVED BY: Chaya Garcia MD EXAM TITLE: ELBOW SPECIAL VIEWS AP/LAT/OTHER LEFT DATE: 03/15/2018 14:17 INDICATION: Left elbow pain secondary to a fall COMPARISON: None. FINDINGS: There is no apparent fracture or dislocation. Joint spaces are maintained and no joint effusion is identified. IMPRESSION: Within normal limits. Normal [facility] Otheron 08-04-2007 CONVERTED ELECTRONIC SIGNATURE MAKAYLA SOLITARIO M.D., PATHOLOGIST (Electronic signature on file) Final Signed Out: 08/04/2007 12:47 [facility] CONVERTED FINAL DIAGNOSIS SKIN AND SUBCUTANEOUS TISSUE, ABDOMEN, EXCISION - BENIGN SKIN AND SUBCUTANEOUS ADIPOSE TISSUES. [facility] CONVERTED ORDERING PROVIDER Ordering Provider: ROBERTH MACK [facility] Otheron 02-27-2004 CONVERTED ELECTRONIC SIGNATURE ALVARO MARTIN M.D., PATHOLOGIST (Electronic signature on file) Final Signed Out: 02/27/2004 11:33 [facility] CONVERTED FINAL DIAGNOSIS A. TISSUE FROM GASTRIC ANASTOMOSIS, EXCISION - GASTRIC SEGMENT WITH MILD CHRONIC INFLAMMATION. HELICOBACTER ORGANISMS ARE NOT IDENTIFIED. SMALL BOWEL SEGMENT WITH NO PATHOLOGIC CHANGE. B. LIVER, BIOPSY - MARKED STEATOSIS. MILD CHRONIC PORTAL INFLAMMATION. SEE COMMENT. COMMENT - The liver biopsies display fatty change that involves approximately 80% of the liver parenchyma. The predominantly macrovesicular steatosis is also associated with a mild chronic inflammatory infiltrate centered within the portal triads. A neutrophilic infiltrate is not appreciated and Bethany's hyaline is not identified. A reticulin stain displays regenerative activity. Rick's trichrome stain does not reveal nodular fibrosis. A periodic acid leslie stain does not reveal PAS positive globules of alpha-1 antitrypsin deficiency. An iron stain is negative. [facility] CONVERTED ORDERING PROVIDER Ordering Provider: ROBERTH MACK [facility] Vital Signs Date Time Vital Sign Value Performing Clinician Facility 09-13-2024 08:48-0400 Body temperature 97.5 [degF] Dr. Angel Kaur DO Work Phone: [facility] 09-13-2024 08:48-0400 Diastolic blood pressure 63 mm[Hg] Dr. Angel Kaur DO Work Phone: [facility] 09-13-2024 08:48-0400 Heart rate 72 /min Dr. Angel Kaur DO Work Phone: [facility] 09-13-2024 08:48-0400 Respiratory rate 16 /min Dr. Angel Kaur DO Work Phone: [facility] 09-13-2024 08:48-0400 SaO2% (BldA) [Mass fraction] 96 % Dr. Angel Kaur DO Work Phone: [facility] 09-13-2024 08:48-0400 Systolic blood pressure 118 mm[Hg] Dr. Angel Kaur DO Work Phone: [facility] 09-13-2024 07:59-0400 Body height 158.[address] Angel Kaur DO Work Phone: [facility] 09-13-2024 07:59-0400 Body mass index (BMI) [Ratio] 30.6 kg/m2 Dr. Angel Kaur DO Work Phone: [facility] 09-13-2024 07:59-0400 Body weight 77.[address] Angel Kaur DO Work Phone: [facility] 05-29-2024 08:05-0400 Body height 160 cm Jalen Harshad DO Work Phone: [facility] 05-29-2024 08:05-0400 Body mass index (BMI) [Ratio] 30.82 kg/m2 Mariposa Harshad DO Work Phone: [facility] 05-29-2024 08:05-0400 Body temperature 97.59 [degF] Mariposa Harshad DO Work Phone: [facility] 05-29-2024 08:05-0400 Body weight 78.93 kg Mariposa Harshad DO Work Phone: [facility] 05-29-2024 08:05-0400 Diastolic blood pressure 78 mm[Hg] Mariposa Harshad DO Work Phone: [facility] 05-29-2024 08:05-0400 Heart rate 91 /min Jalen Harshad DO Work Phone: [facility] 05-29-2024 08:05-0400 SaO2% (BldA) [Mass fraction] 98 % Mariposa Harshad DO Work Phone: [facility] 05-29-2024 08:05-0400 Systolic blood pressure 118 mm[Hg] Jalen Harshad DO Work Phone: [facility] 02-01-2024 16:16-0500 Diastolic blood pressure 80 mm[Hg] Mariposa Harshad DO Work Phone: [facility] 02-01-2024 16:16-0500 Systolic blood pressure 130 mm[Hg] Jalen Harshad DO Work Phone: [facility] 02-01-2024 15:48-0500 Body height 160 cm Mariposa Harshad DO Work Phone: [facility] 02-01-2024 15:48-0500 Body mass index (BMI) [Ratio] 31 kg/m2 Mariposa Harshad DO Work Phone: [facility] 02-01-2024 15:48-0500 Body temperature 97.5 [degF] Jalen Harshad DO Work Phone: [facility] 02-01-2024 15:48-0500 Body weight 79.38 kg Jalen Harshad DO Work Phone: [facility] 02-01-2024 15:48-0500 Heart rate 65 /min Mariposa Harshad DO Work Phone: [facility] 02-01-2024 15:48-0500 SaO2% (BldA) [Mass fraction] 99 % Jalen Harshad DO Work Phone: [facility] 12-28-2023 15:11-0500 Diastolic blood pressure 76 mm[Hg] Jalen Harshad DO Work Phone: [facility] Comment on above: at home 12-28-2023 15:11-0500 Systolic blood pressure 128 mm[Hg] Jalen Harshad DO Work Phone: [facility] Comment on above: at home 12-21-2023 18:57-0500 Diastolic blood pressure 74 mm[Hg] Moe Lewis MD Work Phone: [facility] 12-21-2023 18:57-0500 Heart rate 71 /min Moe Lewis MD Work Phone: [facility] 12-21-2023 18:57-0500 Respiratory rate 18 /min Moe Lewis MD Work Phone: [facility] 12-21-2023 18:57-0500 SaO2% (BldA) [Mass fraction] 97 % Moe Lewis MD Work Phone: [facility] 12-21-2023 18:57-0500 Systolic blood pressure 121 mm[Hg] Moe Lewis MD Work Phone: [facility] 12-21-2023 17:22-0500 Body height 160 cm Moe Lewis MD Work Phone: [facility] 12-21-2023 17:22-0500 Body mass index (BMI) [Ratio] 30.11 kg/m2 Moe Lewis MD Work Phone: [facility] 12-21-2023 17:22-0500 Body temperature 97.59 [degF] Moe Lewis MD Work Phone: [facility] 12-21-2023 17:22-0500 Body weight 77.11 kg Moe Lewis MD Work Phone: [facility] 09-21-2022 09:23-0400 Diastolic blood pressure 68 mm[Hg] Kory Serna MD Work Phone: [facility] 09-21-2022 09:23-0400 Heart rate 78 /min Kory Serna MD Work Phone: [facility] 09-21-2022 09:23-0400 Respiratory rate 16 /min Kory Serna MD Work Phone: [facility] 09-21-2022 09:23-0400 SaO2% (BldA) [Mass fraction] 97 % Kory Serna MD Work Phone: [facility] 09-21-2022 09:23-0400 Systolic blood pressure 128 mm[Hg] Kory Serna MD Work Phone: [facility] 09-21-2022 09:05-0400 Body temperature 97.81 [degF] Kory Serna MD Work Phone: [facility] 09-21-2022 08:30-0400 Body height 162.6 cm Kory Serna MD Work Phone: [facility] 09-21-2022 08:30-0400 Body mass index (BMI) [Ratio] 31.24 kg/m2 Kory Serna MD Work Phone: [facility] 09-21-2022 08:30-0400 Body weight 82.56 kg Kory Serna MD Work Phone: [facility] 06-12-2022 08:07-0400 Body height 162.6 cm Jalen Harshad DO Work Phone: [facility] 06-12-2022 08:07-0400 Body temperature 97.39 [degF] Mariposa Harshad DO Work Phone: [facility] 06-12-2022 08:07-0400 Body weight 86.64 kg Mariposa Harshad DO Work Phone: [facility] 06-12-2022 08:07-0400 Diastolic blood pressure 78 mm[Hg] Mariposa Harshad DO Work Phone: [facility] 06-12-2022 08:07-0400 Heart rate 74 /min Jalen Harshad DO Work Phone: [facility] 06-12-2022 08:07-0400 SaO2% (BldA) [Mass fraction] 98 % Jalen Harshad DO Work Phone: [facility] 06-12-2022 08:07-0400 Systolic blood pressure 130 mm[Hg] Jalen Harshad DO Work Phone: [facility] 07-10-2021 13:04-0400 Body temperature 97 [degF] Dr. Angel Kaur Work Phone: [facility] Work Phone: 07-10-2021 13:04-0400 Diastolic blood pressure 71 mm[Hg] Dr. Angel Kaur Work Phone: [facility] Work Phone: 07-10-2021 13:04-0400 Heart rate 88 /min Dr. Angel Kaur Work Phone: [facility] Work Phone: 07-10-2021 13:04-0400 Respiratory rate 16 /min Dr. Angel Kaur Work Phone: [facility] Work Phone: 07-10-2021 13:04-0400 SaO2% (BldA) [Mass fraction] 98 % Dr. Angel Kaur Work Phone: [facility] Work Phone: 07-10-2021 13:04-0400 Systolic blood pressure 118 mm[Hg] Dr. Angel Kaur Work Phone: [facility] Work Phone: 06-30-2021 08:34-0400 Body height 161.[address] Angel Kaur Work Phone: [facility] Work Phone: 06-30-2021 08:34-0400 Body mass index (BMI) [Ratio] 33.8 kg/m2 Dr. Angel Kaur Work Phone: [facility] Work Phone: 06-30-2021 08:34-0400 Body temperature 94.1 [degF] Dr. Angel Kaur Work Phone: [facility] Work Phone: 06-30-2021 08:34-0400 Body weight 88.[address] Angel Kaur Work Phone: [facility] Work Phone: 06-30-2021 08:34-0400 Diastolic blood pressure 88 mm[Hg] Dr. Angel Kaur Work Phone: [facility] Work Phone: 06-30-2021 08:34-0400 Heart rate 70 /min Dr. Angel Kaur Work Phone: [facility] Work Phone: 06-30-2021 08:34-0400 Respiratory rate 18 /min Dr. Angel Kaur Work Phone: [facility] Work Phone: 06-30-2021 08:34-0400 SaO2% (BldA) [Mass fraction] 97 % Dr. Angel Kaur Work Phone: [facility] Work Phone: 06-30-2021 08:34-0400 Systolic blood pressure 130 mm[Hg] Dr. Angel Kaur Work Phone: [facility] Work Phone: 05-15-2021 13:08-0400 Body height 162.6 cm Jalen Kaur DO Work Phone: [facility] 05-15-2021 13:08-0400 Body weight 85.73 kg Jalen Kaur DO Work Phone: [facility] 05-15-2021 13:08-0400 Diastolic blood pressure 80 mm[Hg] Jalen Jeanrio DO Work Phone: [facility] 05-15-2021 13:08-0400 Heart rate 73 /min Jalenjacob Kaur DO Work Phone: [facility] 05-15-2021 13:08-0400 SaO2% (BldA) [Mass fraction] 98 % Mariposa Harshad DO Work Phone: [facility] 05-15-2021 13:08-0400 Systolic blood pressure 120 mm[Hg] Jalen Kaur DO Work Phone: [facility] 05-15-2021 08:22-0400 Body height 162.[address] Angel Kaur Work Phone: [facility] Work Phone: 05-15-2021 08:22-0400 Body mass index (BMI) [Ratio] 32.5 kg/m2 Dr. Angel Kaur Work Phone: [facility] Work Phone: 05-15-2021 08:22-0400 Body temperature 96 [degF] Dr. Angel Kaur Work Phone: [facility] Work Phone: 05-15-2021 08:22-0400 Body weight 85.[address] Angel Kaur Work Phone: [facility] Work Phone: 05-15-2021 08:22-0400 Diastolic blood pressure 78 mm[Hg] Dr. Angel Kaur Work Phone: [facility] Work Phone: 05-15-2021 08:22-0400 Heart rate 65 /min Dr. Angel Kaur Work Phone: [facility] Work Phone: 05-15-2021 08:22-0400 Respiratory rate 18 /min Dr. Angel Kaur Work Phone: [facility] Work Phone: 05-15-2021 08:22-0400 SaO2% (BldA) [Mass fraction] 99 % Dr. Angel Kaur Work Phone: [facility] Work Phone: 05-15-2021 08:22-0400 Systolic blood pressure 130 mm[Hg] Dr. Angel Kaur Work Phone: [facility] Work Phone: Encounters Encounter Date Encounter Type Care Provider Facility Start: 10-10-2024 ambulatory Mikel Price Facility:[facility] Start: 09-18-2024 End: 09-18-2024 ambulatory Cynthia Harrison [facility] Start: 09-18-2024 End: 09-18-2024 Patient encounter procedure Cynthia Harrison [facility] Comment on above: Population Health Na vigation Outreach ([employer] Attributed Member - Chart Review/) Start: 09-13-2024 End: 09-13-[address] Mikel Price MD -[facility] Work Phone: Start: 09-13-2024 End: 09-13-[address] Angel Kaur DO Work Phone: [facility] Start: 06-22-2024 End: 06-22-2024 ambulatory Josh Marion RN [facility] Start: 06-22-2024 End: 06-22-2024 Patient encounter procedure Josh Marion RN [facility] Comment on above: Population Health Na vigation Outreach ([employer] Attributed Member - Chart Review ) Start: 06-05-2024 End: 06-05-2024 Telephone encounter Jalen Kaur DO Work Phone: [facility] Comment on above: Orders (A1c reminder ) Start: 05-29-2024 End: 05-29-2024 ambulatory JALEN KAUR Facility:[facility] Start: 05-29-2024 End: 05-29-2024 Patient encounter procedure Jalen Kaur DO Work Phone: [facility] Comment on above: Medicare annual well ness visit, subsequent (Primary Dx); Controlled type 2 diabetes mellitus without complication, without long-term current use of insulin (HCC); Mixed hyperlipidemia; Post-menopausal; Screening for depression; Screening for diabetic retinopathy; Class 1 obesity with body mass index (BMI) of 30.0 to 30.9 in adult, unspecified obesity type, unspecified whether serious comorbidity present; Encounter for screening mammogram for breast cancer; Screening for thyroid disorder; Encounter for screening examination for other mental health and behavioral disorders; Special screening examination for viral disease Start: 05-16-2024 End: 05-16-2024 ambulatory Cynthia [facility] Start: 05-16-2024 End: 05-16-2024 Home visit Cynthia [facility] Comment on above: Population Health Na vigation Outreach ([employer] Attributed Member - Chart Review/) Start: 04-28-2024 End: 04-28-2024 ambulatory Mikel Price Facility:[facility] Start: 03-30-2024 End: 03-30-2024 ambulatory Chelsea Greene MA [facility] Start: 03-30-2024 End: 03-30-2024 Patient encounter procedure Chelsea Greene MA [facility] [place] Comment on above: Population Health Na vigation Outreach (/[employer] High Risk- Attempt 1/) Start: 02-03-2024 End: 02-03-2024 ambulatory Josh Marion RN [employer] Start: 02-03-2024 End: 02-03-2024 Home visit Josh Marion RN [employer] Comment on above: Population Health Na vigation Outreach ([employer] Attributed Member - Chart Review ) Start: 02-01-2024 End: 02-01-2024 Patient encounter procedure Jalen Kaur DO Work Phone: [facility] Comment on above: Muscle tension heada hallie (Primary Dx); Class 1 obesity with body mass index (BMI) of 31.0 to 31.9 in adult, unspecified obesity type, unspecified whether serious comorbidity present Start: 02-01-2024 End: 02-01-2024 ambulatory JALEN KAUR Facility:[facility] Start: 12-28-2023 End: 12-28-2023 Patient encounter procedure Jalen Kaur DO Work Phone: [facility] Comment on above: Sprain of left ring finger, unspecified site of digit, subsequent encounter (Primary Dx); Fall (on) (from) other stairs and steps, sequela Start: 12-28-2023 End: 12-28-2023 Telemedicine consultation with patient Jalen Kaur DO Work Phone: [facility] Start: 12-28-2023 End: 12-28-2023 ambulatory JALEN KAUR Facility:[facility] Start: 12-22-2023 End: 12-22-2023 ambulatory Jalen Kaur DO Work Phone: [facility] Start: 12-22-2023 End: 12-22-2023 Patient encounter procedure Jalen Kaur DO Work Phone: [facility] Comment on above: Transition Of Care; ER F/U ([facility] 12/21/23) Start: 12-21-2023 End: 12-21-2023 Subsequent hospital visit by physician [facility] Xr Portable [facility] Radiology Comment on above: Arrived Start: 12-21-2023 End: 12-21-2023 Emergency department patient visit Moe Lewis MD Work Phone: [facility] ED Comment on above: Sprain of left ring finger, unspecified site of digit, initial encounter (Primary Dx) Start: 10-13-2023 End: 10-14-2023 Refill Jalen Kaur DO Work Phone: [facility] Comment on above: Refill Request Start: 10-06-2023 End: 10-06-2023 ambulatory Cynthia Whitecker [facility] [place] Start: 10-06-2023 End: 10-06-2023 Patient encounter procedure [facility] Comment on above: Population Health Na vigation Outreach ([employer] Attributed Member- Needs 2023 Medicare Wellness Appt Scheduled/) Start: 04-26-2023 End: 04-26-2023 ambulatory [facility] Work Phone: Start: 04-26-2023 End: 04-26-2023 Patient encounter procedure [facility] Work Phone: Start: 09-21-2022 End: 09-21-2022 Subsequent hospital visit by physician Kory Serna MD Work Phone: Ambulatory Surgery Comment on above: Special screening fo r malignant neoplasms, colon [Z12.11] Start: 09-17-2022 ambulatory Kory magana MD Work Phone: Ambulatory Surgery Start: 08-19-2022 ambulatory Cynthia Harrison [facility] [place] Comment on above: Population Health Na vigation Outreach (Needs Medicare Wellness Sched, Care Gap Review) Start: 07-21-2022 Telephone encounter Kory piña MD Work Phone: [facility] [place] Comment on above: screening colonoscop y checklist/order Start: 06-16-2022 End: 06-16-2022 Subsequent hospital visit by physician [facility] Xr Port[facility] Radiology Comment on above: Arrived Start: 06-12-2022 End: 06-12-2022 Patient encounter procedure Jalen Kaur DO Work Phone: [facility] [place] Comment on above: Muscle tension heada hallie (Primary Dx); Screening for colon cancer Start: 07-10-2021 End: 07-10-[address] Angel Kaur Work Phone: [facility]-Medical Out Start: 07-08-2021 Chart abstracting Jalen Kaur DO Work Phone: [facility] [place] Start: 06-30-2021 End: 06-30-[address] Angel Kaur Work Phone: [facility] Endocrinology Start: 05-22-2021 End: 05-22-[address] Angel Kaur Work Phone: [facility]-Outpatient Bone Densitometry Start: 05-16-2021 Telephone encounter Jalen Kaur DO Work Phone: [facility] [place] Comment on above: Medication Problem Start: 05-15-2021 End: 05-15-2021 Patient encounter procedure Jalen Kaur DO Work Phone: [facility] [place] Comment on above: Muscle tension heada hallie (Primary Dx) Start: 05-07-2021 End: 05-07-2021 Patient encounter procedure [facility] Start: 08-03-2007 End: 08-03-2007 Patient encounter procedure Roberth Mack Work Phone: [facility] Start: 08-03-2007 Results Only Roberth mccullough Work Phone: [facility] Start: 02-25-2004 End: 02-25-2004 Patient encounter procedure Roberth Mack Work Phone: [facility] Start: 02-25-2004 Results Only Roberth mccullough Work Phone: [facility] Procedures Date Procedure Procedure Detail Performing Clinician Start: 05-29-2024 Adult depression scr eening assessment [facility] Work Phone: Start: 05-23-2024 GFR ESTIMATED [facility] Provi francoise Start: 05-23-2024 MICROALBUMIN/CREATIN INE UR W RATIO (EXTERNAL) Mikel Price MD Work Phone: Start: 04-28-2024 Hemoglobin A1c/Hemoglobin.total in Blood Mikel Price MD Work Phone: Start: 12-21-2023 Radex hand minimum 3 views Moe Lewis MD Work Phone: Start: 05-11-2023 Hemoglobin A1c/Hemoglobin.total in Blood Mikel Price MD Work Phone: Start: 04-26-2023 MICROALBUMIN/CREATIN INE UR W RATIO (EXTERNAL) Mikel Price MD Work Phone: Start: 09-21-2022 Colonoscopy flx dx w /collj spec when pfrmd Kory Serna MD Work Phone: Start: 09-21-2022 Colonoscopy Cynthia ann Start: 06-16-2022 End: 06-16-2022 Radex wrist complete minimum 3 views Nura Kowalski MD Work Phone: Start: 05-14-2022 Hemoglobin A1c/Hemoglobin.total in Blood Mikel Price MD Work Phone: Start: 05-05-2022 Lipid panel Mikel huynh MD Work Phone: Start: 05-05-2022 MICROALBUMIN/CREATIN INE UR W RATIO (EXTERNAL) Mikel Price MD Work Phone: Start: 05-22-2021 Dual energy X-ray absorptiometry Dr. Angel Kaur Work Phone: Start: 05-22-2021 End: 05-22-[address] Angel cespedes Work Phone: Start: 05-15-2021 Adult depression scr eening assessment Jalen Kaur DO Work Phone: Start: 05-07-2021 Hemoglobin A1c/Hemoglobin.total in Blood Mikel Price MD Work Phone: Start: 12-09-2015 Mammography Roberth Carmen weston Start: 08-03-2007 CONVERTED SURGICAL PATHOLOGY Roberth Larios Aracelideirdre Work Phone: Start: 02-25-2004 CONVERTED SURGICAL PATHOLOGY Roberth Moralesenrico Work Phone: Plan of Treatment Date Care Activity Detail Author Start: 09-21-2032 Screening for malign ant neoplasm of colon [facility] Start: 11-13-2030 RSV Vaccine (1 - 1-d ose 75+ series) RSV Vaccine (1 - 1-dose 75+ series) [facility] Start: 05-29-2025 Annual PCP Team Apartment Property Manager felice Disease Visit Annual PCP Team Chronic Disease Visit [facility] Start: 05-29-2025 Anxiety Screening Anxiety Screening [facility] Start: 05-29-2025 Depression Screening Depression Scre ening [facility] Start: 05-29-2025 End: 05-29-2025 Patient encounter procedure 05/29/2025 8:00 AM EDT Office Visit [facility] [place] [address] [place] [id number] Jalen Kaur DO [address] [place] [address] Medicare wellness [facility] [place] Comment on above: Medicare wellness Start: 05-23-2025 Hepatitis B screening Urine Al bumin:Creatinine Ratio [facility] Start: 01-31-2025 Annual PCP Team Apartment Property Manager felice Disease Visit Annual PCP Team Chronic Disease Visit [facility] Start: 01-23-2025 Glaucoma screening Dilated Retinal E xam [facility] Start: 12-27-2024 Annual PCP Team Apartment Property Manager felice Disease Visit Annual PCP Team Chronic Disease Visit [facility] Start: 11-27-2024 End: 11-27-2024 Patient encounter procedure [facility] [place] Comment on above: 6 mos Follow up 6 mos Follow up, Car e Gap- Mamm Start: 10-29-2024 Hemoglobin A1c measurement HbA1C [facility] Start: 10-16-2024 Influenza vaccination Influenza Vacc ine (#1) [facility] Start: 05-29-2024 End: 08-28-2024 CBC W Auto Differential panel - Blood COMPLETE BLOOD COUNT AND DIFFERENTIAL Lab Routine Mixed hyperlipidemia Expected: 05/29/2024, Expires: 08/28/2024 [facility] Comment on above: Expected: 05/29/2024 , Expires: 08/28/2024 Start: 05-29-2024 End: 08-28-2024 Comprehensive metabolic 2000 panel - Serum or Plasma COMPREHENSIVE METABOLIC PANEL Lab Routine Mixed hyperlipidemia Expected: 05/29/2024, Expires: 08/28/2024 [facility] Comment on above: Expected: 05/29/2024 , Expires: 08/28/2024 Start: 05-29-2024 End: 08-28-2024 Hemoglobin A1c in Blood HEMOGLOBIN A1C Lab Routine Controlled type 2 diabetes mellitus without complication, without long-term current use of insulin (HCC) Expected: 05/29/2024, Expires: 08/28/2024 [facility] Comment on above: Expected: 05/29/2024 , Expires: 08/28/2024 Start: 05-29-2024 End: 08-28-2024 Hepatitis C virus Ab [Presence] in Serum HEPATITIS C ANTIBODY IA WITH CONFIRMATION Lab Routine Special screening examination for viral disease Expected: 05/29/2024, Expires: 08/28/2024 [facility] Comment on above: Expected: 05/29/2024 , Expires: 08/28/2024 Start: 05-29-2024 End: 08-28-2024 Lipid 1996 panel - Serum or Plasma LIPID PANEL, FASTING Lab Routine Mixed hyperlipidemia Expected: 05/29/2024, Expires: 08/28/2024 [facility] Comment on above: Expected: 05/29/2024 , Expires: 08/28/2024 Start: 05-29-2024 End: 08-28-2024 Microalbumin/Creatinine [Mass Ratio] in Urine ALBUMIN/CREATININE RATIO, URINE Lab Routine Controlled type 2 diabetes mellitus without complication, without long-term current use of insulin (HCC) Expected: 05/29/2024, Expires: 08/28/2024 [facility] Comment on above: Expected: 05/29/2024 , Expires: 08/28/2024 Start: 05-29-2024 End: 08-28-2024 Thyrotropin [Units/volume] in Serum or Plasma THYROID STIMULATING HORMONE Lab Routine Screening for thyroid disorder Expected: 05/29/2024, Expires: 08/28/2024 [facility] Comment on above: Expected: 05/29/2024 , Expires: 08/28/2024 Start: 05-29-2024 End: 08-28-2024 Urinalysis complete panel - Urine URINALYSIS, WITH MICROSCOPIC Lab Routine Mixed hyperlipidemia Expected: 05/29/2024, Expires: 08/28/2024 [facility] Comment on above: Expected: 05/29/2024 , Expires: 08/28/2024 Start: 05-29-2024 End: 05-29-2024 Patient encounter procedure [facility] [place] Comment on above: Medicare wellness Medicare wellness, P ls address HCC Gaps. Care Gap- Mamm, A1C, Urine Albumin,GFR, DM Eye, BMD Start: 04-26-2024 Covid-19 Vaccine () Covid-19 Vaccine () [facility] Start: 04-25-2024 Hepatitis B screening Urine Al bumin:Creatinine Ratio [facility] Start: 02-16-2024 Advance Directive Discussion Advance Directive Discussion [facility] Start: 12-28-2023 End: 12-28-2023 Follow-up encounter 12/28/2023 3:00 PM [facility] [place] [address] [place] [address] Jalen Kaur DO [address] [place] [address] ER follow up. [facility] [place] Comment on above: ER follow up. Start: 11-11-2023 Hemoglobin A1c measurement HbA1C [facility] Start: 10-17-2023 Covid-19 Vaccine ( season) Covid-19 Vaccine () [facility] Start: 10-17-2023 COVID-19 Vaccine () COVID-19 Vaccine () [facility] Start: 10-17-2023 Influenza vaccination Influenza Vacc ine (#1) [facility] Start: 06-13-2023 ANNUAL PCP TEAM ASSISTANT DIRECTOR OF PUBLIC WORKS FELICE DISEASE VISIT ANNUAL PCP TEAM CHRONIC DISEASE VISIT [facility] Start: 05-23-2023 Screening for osteoporosis Bone Density Screening [facility] Start: 05-06-2023 Hepatitis B screening URINE AL BUMIN:CREATININE RATIO [facility] Start: 05-06-2023 Hepatitis B surface antibody level LDL CHOLESTEROL [facility] Start: 02-15-2023 Advance Directive Discussion Advance Directive Discussion [facility] Start: 02-15-2023 Medicare Advantage Annual Wellness Visit Medicare Advantage Annual Wellness Visit [facility] Start: 01-18-2023 Glaucoma screening Dilated Retinal E xam [facility] Start: 01-18-2023 Hepatitis C antibody , confirmatory test DILATED RETINAL EXAM [facility] Start: 2022 Hemoglobin A1c measurement HbA1C [facility] Start: 2022 Hemoglobin A1c/Hemoglobin.total in Blood HBA1C [facility] Start: 10-16-2022 Covid-19 Vaccine ( season) Covid-19 Vaccine () [facility] Start: 10-16-2022 Influenza vaccination INFLUENZA (#1) [facility] Start: 06-12-2022 End: 06-13-2023 CBC W Auto Differential panel - Blood CBC + DIFF Lab Routine Expected: 06/12/2022, Expires: 06/13/2023 [facility] Work Phone: Comment on above: Expected: 06/12/2022 , Expires: 06/13/2023 Start: 06-12-2022 End: 06-13-2023 Comprehensive metabolic 2000 panel - Serum or Plasma COMP METABOLIC PANEL Lab Routine Expected: 06/12/2022, Expires: 06/13/2023 [facility] Work Phone: Comment on above: Expected: 06/12/2022 , Expires: 06/13/2023 Start: 06-12-2022 End: 06-13-2023 Lipid 1996 panel - Serum or Plasma LIPID PANEL BASIC Lab Routine Expected: 06/12/2022, Expires: 06/13/2023 [facility] Work Phone: Comment on above: Expected: 06/12/2022 , Expires: 06/13/2023 Start: 06-12-2022 End: 06-13-2023 Thyrotropin [Units/volume] in Serum or Plasma TSH BLD Lab Routine Expected: 06/12/2022, Expires: 06/13/2023 [facility] Work Phone: Comment on above: Expected: 06/12/2022 , Expires: 06/13/2023 Start: 06-12-2022 End: 08-12-2022 Urinalysis complete panel - Urine URINALYSIS, WITH MICROSCOPIC Lab Routine Expected: 06/12/2022, Expires: 08/12/2022 [facility] Work Phone: Comment on above: Expected: 06/12/2022 , Expires: 08/12/2022 Start: 05-22-2022 Mammography MAMMOGRAM [facility] Start: 05-22-2022 Screening for malign ant neoplasm of breast [facility] Start: 05-15-2022 Adult depression screening assessment DEPRESSION SCREENING [facility] Start: 05-15-2022 ANNUAL PCP TEAM ASSISTANT DIRECTOR OF PUBLIC WORKS FELICE DISEASE VISIT ANNUAL PCP TEAM CHRONIC DISEASE VISIT [facility] Start: 03-13-2022 COVID-19 VACCINE (6 - Pfizer series) COVID-19 VACCINE (6 - Pfizer series) [facility] Start: 02-15-2022 ADVANCE DIRECTIVE DISCUSSION ADVANCE DIRECTIVE DISCUSSION [facility] Start: 02-15-2022 DEPRESSION ASSESSMENT DEPRESSION ASS ESSMENT [facility] Start: 11-07-2021 Hemoglobin A1c/Hemoglobin.total in Blood HBA1C [facility] Start: 07-10-2021 Iv infusion therapy/prophylaxis /dx 1st to 1 hr [facility] Start: 03-24-2021 COVID-19 VACCINE (4 - Booster for Pfizer series) COVID-19 VACCINE (4 - Booster for Pfizer series) [facility] Start: 02-15-2021 ADVANCE DIRECTIVE DISCUSSION ADVANCE DIRECTIVE DISCUSSION [facility] Start: 11-13-2020 BONE DENSITY BONE DENSITY [facility] Start: 11-13-2020 Pneumococcal Vaccine : 65+ Years (2 - PPSV23 if available, else PCV20) Pneumococcal Vaccine: 65+ Years (2 - PPSV23 if available, else PCV20) [facility] Start: 11-13-2020 Pneumococcal Vaccine : 65+ Years (2 of 2 - PPSV23 or PCV20) Pneumococcal Vaccine: 65+ Years (2 of 2 - PPSV23 or PCV20) [facility] Start: 11-13-2020 PNEUMOVAX AGE 65 AND OVER WITH 5YR LOOKBACK (#1) PNEUMOVAX AGE 65 AND OVER WITH 5YR LOOKBACK (#1) [facility] Start: 10-17-2019 Influenza vaccination INFLUENZA (#1) [facility] Start: 10-11-2019 [object Object] DIABETIC FOOT EXAM C [facility] Start: 10-11-2019 Diabetic foot examination Diabetic Foot Exam [facility] Start: 10-11-2019 Hepatitis B screening URINE AL BUMIN:CREATININE RATIO [facility] Start: 10-11-2019 Hepatitis B surface antibody level LDL CHOLESTEROL [facility] Start: 04-12-2019 HbA1c (Bld) [Mass fraction] HBA1C [facility] Start: 01-28-2019 Hepatitis C antibody , confirmatory test DILATED RETINAL EXAM [facility] Start: 12-08-2016 Mammography MAMMOGRAM [facility] Start: 2015 RSV Immunization for Adults (1 - Risk 60-74 years 1-dose series) RSV Immunization for Adults (1 - Risk 60-74 years 1-dose series) [facility] Start: 2015 RSV Vaccine (1 - 1-d ose 60+ series) RSV Vaccine (1 - 1-dose 60+ series) [facility] Start: 01-11-2014 Pneumococcal Vaccine : 50+ (2 of 2 - PPSV23) Pneumococcal Vaccine: 50+ (2 of 2 - PPSV23) [facility] Start: 01-11-2014 Pneumococcal Vaccine : 65+ (2 of 2 - PPSV23 or PCV20) Pneumococcal Vaccine: 65+ (2 of 2 - PPSV23 or PCV20) [facility] Start: 01-11-2014 PNEUMOCOCCAL: 65+ (2 - PPSV23 if available, else PCV20) PNEUMOCOCCAL: 65+ (2 - PPSV23 if available, else PCV20) [facility] Start: 01-11-2014 PNEUMOCOCCAL: 65+ (2 - PPSV23 or PCV20) PNEUMOCOCCAL: 65+ (2 - PPSV23 or PCV20) [facility] Start: 11-13-2005 SHINGRIX VACCINE (1 of 2) SHINGRIX VACCINE (1 of 2) [facility] Start: 11-13-2005 Tuberculosis screening COLOREC ALAINA CANCER SCREENING,SEE MODIFIER [facility] Start: 11-13-2000 COLOGUARD (FIT-DNA) COLOGUARD (FIT-D NA) [facility] Start: 11-13-2000 Colonoscopy COLONOSCOPY [facility] Start: 11-13-2000 COLORECTAL CANCER SCREENING COLORECTAL CANCER SCREENING [facility] Start: 11-13-[address] COLONOGRAPHY [facility] Start: 11-13-2000 FECAL OCCULT BLOOD FECAL OCCULT BLOO D [facility] Start: 11-13-2000 Screening for malign ant neoplasm of colon [facility] Start: 11-13-2000 SIGMOIDOSCOPY SIGMOIDOSCOPY [facility] Start: 11-13-1985 HPV TESTING HPV TESTING [facility] Start: 11-13-1976 PAP TESTING PAP TESTING [facility] Start: 11-13-1974 DTaP/Tdap/Td Vaccine s (1 - Tdap) DTaP/Tdap/Td Vaccines (1 - Tdap) [facility] Start: 11-13-1974 Urine microalbumin profile [facility] Start: 11-13-1974 Urine screening for protein Diabetes: Urine Protein Screening [facility] Start: 11-13-1973 ANNUAL PCP TEAM ASSISTANT DIRECTOR OF PUBLIC WORKS FELICE DISEASE VISIT ANNUAL PCP TEAM CHRONIC DISEASE VISIT [facility] Start: 11-13-1973 Anxiety Screening Anxiety Screening [facility] Start: 11-13-1973 Depression Screening Depression Scre ening [facility] Start: 11-13-1973 Diabetes: Estimated Glomerular Filtration Rate for Kidney Health Diabetes: Estimated Glomerular Filtration Rate for Kidney Health [facility] Start: 11-13-1973 Diabetes: Urine Albumin-Creatinine Ratio for Kidney Health Diabetes: Urine Albumin-Creatinine Ratio for Kidney Health [facility] Start: 11-13-1973 [facility]IT[facility] Start: 11-13-1973 Hepatitis C screening Hepatitis C Sc [facility] Start: 11-13-1973 HIV SCREENING HIV SCREENING [facility] Start: 1971 ONE PNEUMOVAX PRIOR TO AGE 65 ONE PNEUMOVAX PRIOR TO AGE 65 [facility] Start: 1967 Depression Screening Depression Scre ening [facility] Start: 11-13-1965 Diabetic foot examination Diabetes: Foot Exam [facility] Start: 11-13-1965 Glaucoma screening Diabetes: R etinopathy Screening [facility] Start: 11-13-1965 Preventive dental service Diabetes: Dental Exam [facility] Start: 11-13-1961 PNEUMOCOCCAL: 65+ (1 - PCV) PNEUMOCOCCAL: 65+ (1 - PCV) [facility] Start: 1955 Hemoglobin A1c measurement Diabetes: Hemoglobin A1C [facility] Start: 1955 Hepatitis B Vaccines (1 of 3 - 3-dose series) Hepatitis B Vaccines (1 of 3 - 3-dose series) [facility] Start: 1955 Lipid panel Lipid Panel [facility] Start: 1955 Screening for malign ant neoplasm of colon [facility] Start: 1955 Screening for osteoporosis Bone Density Scan [facility] End: 06-28-2025 DBT Breast - bilateral screening JETT SCREENING W [facility] Radiology Routine Encounter for screening mammogram for breast cancer 1 Occurrences starting 05/29/2024 until 06/28/2025 [facility] Work Phone: Comment on above: 1 Occurrences starti ng 05/29/2024 until 06/28/2025 End: 06-28-2025 DXA Skeletal system.axial Views for bone density DXA-AXIAL SKELETON Radiology Routine 1 Occurrences starting 05/29/2024 until 06/28/2025 [facility] Comment on above: 1 Occurrences starti ng 05/29/2024 until 06/28/2025 End: 07-22-2023 Screening colonoscopy COLONOSCOPY SCREENING Endoscopy Routine Special screening for malignant neoplasms, colon 1 Occurrences starting 07/21/2022 until 07/22/2023 [facility] Work Phone: Comment on above: 1 Occurrences starti ng 07/21/2022 until 07/22/[address] [facility] Immun[facility] Immunization Date Immunization Notes Care Provider Cyrus drake 10-28-2023 influenza, high dose seasonal, preservative-free Josh Marion RN [facility] 10-28-2023 influenza virus vaccine, unspecified formulation Cynthia Jimenezbocker [facility] 04-05-2023 respiratory syncytia l virus (RSV) vaccine, adjuvanted (AREXVY) Josh Marion RN [facility] 11-16-2022 influenza (aIIV4) vaccine, age 65+ yr, quadrivalent, PF (FLUAD QUAD) Josh Marion RN [facility] 11-16-2022 Influenza High-Dose Quadrivalent [facility] 11-16-2022 influenza virus vaccine, unspecified formulation Cynthia Jimenezbocker [facility] 11-10-2021 influenza (HD-IIV4) vaccine, age 65+ yr, high dose, quadrivalent, PF (FLUZONE HIGH-DOSE) Josh Marion RN [facility] 11-06-2020 Influenza, injectable, Madin Jocy Canine Kidney, preservative free, quadrivalent Mariposa Harshad DO Work Phone: [facility] 05-09-2020 Covid (Pfizer) [facility] 04-18-2020 Covid (Pfizer) [facility] 12-01-2019 influenza virus vaccine, unspecified formulation Mariposa Harshad DO Work Phone: [facility] 10-24-2019 Influenza, injectable, Madin Jocy Canine Kidney, preservative free, quadrivalent Mariposa Harshad DO Work Phone: [facility] 03-10-2019 zoster vaccine recombinant Mariposa Harshad DO Work Phone: [facility] 10-19-2018 Influenza, injectable, Madin Jocy Canine Kidney, preservative free, quadrivalent Mariposa Harshad DO Work Phone: [facility] 10-19-2018 zoster vaccine recombinant Mariposa Harshad DO Work Phone: [facility] 11-01-2017 influenza, injectable, quadrivalent, preservative free Mariposa Harshad DO Work Phone: [facility] 01-18-2017 Influenza, injectable, Madin [place] Canine Kidney, preservative free, quadrivalent Mariposa Harshad DO Work Phone: [facility] 12-09-2015 influenza, injectable, quadrivalent, preservative free Jalen Harshad DO Work Phone: [facility] 12-09-2015 zoster vaccine, live Freelan d Harshad DO Work Phone: [facility] 2014 influenza, injectable, quadrivalent, preservative free Jalen Harshad DO Work Phone: [facility] 11-16-2013 pneumococcal conjugate vaccine, 13 valent Jalen Harshad DO Work Phone: [facility] 11-08-2013 influenza, high dose seasonal, preservative-free Jalen Harshad DO Work Phone: [facility] 11-15-2012 influenza, high dose seasonal, preservative-free Jalen Harshad DO Work Phone: [facility] 12-06-2009 influenza virus vaccine, whole virus Mariposa Harshad DO Work Phone: [facility] 02-21-2009 novel [id number], preservative-free, injectable Mariposa Harshad DO Work Phone: [facility] 12-03-2008 influenza, seasonal, injectable Jalen Harshad DO Work Phone: [facility] 01-04-2007 influenza virus vaccine, whole virus Jalen Harshad DO Work Phone: [facility] Payers Date Payer Category Payer Self-pay [id number] 2021 Medicare AETNA MEDICARE A ETNA MEDICARE O [id number] 2021-Present [phone] [address] [place] [address] [facility] [id number] 2021 Medicare [id number] 2021 Medicare (Managed Care) [place] [id number] 2021 Medicare O AETNA MEDICARE [facility] Address: [facility] [id number] [place] [id number] [id number] 2021 Private Health Insurance [facility] [id number] Unknown [id number] Unknown [id number] Unknown [id number] Unknown [id number] Social History Date Type Detail Facility Tobacco smoking stat us NYIS Unknown if ever smoked [facility] Start: 1955 Sex Assigned At Not on file C [facility] Start: 05-14-2020 End: 11-10-2022 Tobacco smoking status NHIS Unknown if ever smoked [facility] Start: 1955 Sex Assigned At Female C [facility] Start: 11-20-2015 End: 06-16-2022 Tobacco smoking status NYIS Never smoked tobacco [facility] Start: 05-15-2021 End: 12-17-2022 Alcohol intake Current drinker of alcohol (finding) [facility] Start: 11-20-2015 History SDOH Alcohol Comment Rare [facility] Start: 05-05-2021 End: 06-16-2022 Exposure to SARS-CoV-2 (event) Not sure [facility] Start: 11-20-2015 End: 06-16-2022 Tobacco use and exposure Smokeless tobacco non-user [facility] Start: 06-16-2022 History SDOH Alcohol Frequency 2 [facility] Start: 06-12-2022 End: 12-28-2023 History of Social function [facility] Start: 06-12-2022 End: 12-28-2023 Tobacco use panel [facility] Adult Depression Screening Assessment 0 [facility] Start: 05-14-2021 Gender identity Identifies as female gender (finding) [facility] How often to you hav e a drink containing alcohol? Monthly or less [facility] Start: 09-15-2021 Sex Female (finding) [facility] How many standard drinks containing alcohol do you have on a typical day? 1 or 2 [facility] How often do you hav e 6 or more drinks on 1 occasion? Never [facility] Medical Equipment Procedure Code Equipment Code Equipment Origin al Text Equipment Identifier Dates USE TO TEST ONCE DAILY [id number] Start: 05-14-2022 Comment on above: USE TO TEST ONCE KATI LY Blood Sugar Diagnostic (Onetouch Verio Test Strips) strip Start: 11-10-2022 Lancets (Onetouc h Delica Plus Lancet) 33 gauge misc Start: 11-10-2022 Blood Sugar Diagnostic (Onetouch Verio Test Strips) strip Start: 05-14-2022 End: 11-10-2022 Blood Sugar Diagnostic (Onetouch Verio Test Strips) strip Start: 12-14-2023 Lancets (Onetouc h Delica Plus Lancet) 33 gauge misc Start: 12-14-2023 Blood Sugar Diagnostic (Onetouch Verio Test Strips) strip Start: 11-10-2022 End: 05-11-2023 Blood Sugar Diagnostic (Onetouch Verio Test Strips) strip Start: 05-11-2023 End: 12-14-2023 Blood Sugar Diagnostic (Onetouch Verio Test Strips) strip Start: 05-14-2022 End: 11-10-2022 Lancets (Onetouc h Delica Plus Lancet) 33 gauge misc Start: 11-10-2022 End: 05-11-2023 Lancets (Onetouc h Delica Plus Lancet) 33 gauge misc Start: 05-11-2023 End: 12-14-2023 Functional Status Date Assessment Result Facility 05-29-2024 Total score [AUDIT-C] 1 05/30/19 8:08 AM EDT Milla Dougherty LPN [facility] Mental Status Date Assessment Result Facility 09-13-2024 Cognitive function Voice/Name [facility] Work Phone: 07-10-2021 Cognitive function Level Of Cons ciousness Awake;Alert;Appropriate;Follow s Commands [facility] Work Phone: Clinical Notes 05-15-2021 to 09-18-2024 Cynthia Harrison - 09/18/2024 4:27 PM Josh Brown RN - 06/22/2024 3:44 PM EDTTelephone Encounter - Ines Schneider LPN - 06/05/2024 10:16 AM EDTPatient InstructionsDischarge Instructions Note Date & Type Note Facility 09-18-2024 History of Presen t illness Narrative [facility] NAVIGATION OUTREACH Action/04-28-24 A1c in Cl[facility] abstracted and uploaded to payor. Patient needs assistance scheduling mamm and BMD. Patient Identified by Name and : Yes, via Maternovahart Reason for Outreach Care Gap or Scheduling Wellness Visits Care Gap Reviewed:: Breast Cancer screening HBA1C/GMI OMW Outreach Outcome/Action MyChart message sent Population Health Navigation Workflow Abstract Care Gap Cute PDF and Portal Submission Pre-Visit Planning Payer: [employer] Navigation Signature: Cynthia Harrison September 18, 2024 4:28 PM documented in this encounter [facility] 09-18-2024 Note HNO ID: [id number] Author: CYNTHIA HARRISON, ? Service: ? Author Type: ? Type: Progress Notes Filed: 09/18/2024 16:36 Note Text: [facility]ATION [facility] NAVIGATION OUTREACH Action/I 04-28-24 A1c in [facility] abstracted and uploaded to payor. Patient needs assistance scheduling mamm and BMD. Patient Identified by Name and : Yes, via [employer] Reason for Outreach Care Gap or Scheduling Wellness Visits Care Gap Reviewed:: Breast Cancer screening HBA1C/GMI OMW Outreach Outcome/Action MyChart message sent Population Health Navigation Workflow Abstract Care Gap Cute PDF and Portal Submission Pre-Visit Planning Payer: [employer] Navigation Signature: Cynthia Harrison September 18, 2024 4:28 PM [facility] 09-18-2024 Note Patient Outreach (FP YL) DIVINE GROSSMAN ([id number]) 1955 F Date Time Provider Department 09/18/24 CYNTHIA HARRISON During your visit today, we recorded the following information about you: Cynthia Harrison 09/18/2024 4:36 PM Signed [facility]IG[facility] OUTREACH Action/04-28-24 A1c in [facility] abstracted and uploaded to payor. Patient needs assistance scheduling mamm and BMD. Patient Identified by Name and : Yes, via [employer] Reason for Outreach Care Gap or Scheduling Wellness Visits Care Gap Reviewed:: Breast Cancer screening HBA1C/GMI OMW Outreach Outcome/Action [facility] message sent Population Health Navigation Workflow Abstract Care Gap Cute PDF and Portal Submission Pre-Visit Planning Payer: Angela Navigation Signature: Cynthia Harrison September 18, 2024 4:28 PM Allergies As of Date: 09/18/2024 Noted Allergy Reaction CIPROFLOXACIN 03/15/2018 7 - Swelling Comments: tongue Date Reviewed: 05/29/2024 Reviewed by: Milla Dougherty LPN - Fully Assessed Reason for Visit: Population Health Navigation Outreach [3910] Cmt: [employer] Attributed Member - Chart Review Order(s):HEMOGLOBIN A1C [[id number]] Order #: [id number] Prescriptions as of 09/18/2024 - zoledronic acid/mannitol-water (RECLAST INTRAVENOUS) Inject intravenously. Once yearly. Endocrinology orders - JARDIANCE 25 mg tablet Take 25 mg by mouth once daily. - amitriptyline (ELAVIL) 25 mg tablet Take 1 tablet by mouth daily at bedtime. - atorvastatin (LIPITOR) 10 mg tablet Take 10 mg by mouth. Wednesday, Wednesday, and Wednesday. - ONETOUCH VERIO TEST STRIPS test strip USE TO TEST ONCE DAILY - ONETOUCH VERIO FLEX METER USE TO TEST ONCE DAILY - amitriptyline (ELAVIL) 10 mg tablet Take [...] once daily. Problem List As Of Date 09/18/2024 Noted Resolved Controlled type 2 diabetes mellitus without com* Mixed hyperlipidemia [E78.2] Malabsorption [K90.9] Obesity (BMI 30.0-34.9) [E66.811] Vitamin D deficiency [E55.9] Osteoporosis [M81.0] 10/05/2023 Encounter Status:Closed by CYNTHIA HARRISON on 09/18/24 [facility] 06-22-2024 Note HNO ID: [id number] Author: JOSH MARION RN Service: ? Author Type: Registered Nurse Type: Progress Notes Filed: 06/26/2024 09:44 Note Text: [facility] [place] POPULATION HEALTH NAVIGATION OUTREACH Action/FYI Patient returned call - reports last mammogram with [facility] Abstracted uACR, and eGFR from [facility]. Records are in [facility] Inside scanned documents Patient Identified by Name and : Yes, via phone Reason for Outreach Care Gap or Scheduling Wellness Visits Care Gap Reviewed:: Breast Cancer screening HBA1C/GMI KED (UACR/eGFR) Outreach Outcome/Action Unable to reach patient: Left message Population Health Navigation Workflow Abstract Care Gap Chart Review Payer: [employer] Navigation Signature: Josh Marion RN June 22, 2024 3:55 PM [facility] 06-22-2024 History of Presen t illness Narrative [facility] [place] POPULATION HEALTH NAVIGATION OUTREACH Action/FYI Abstracted uACR, and eGFR from [facility] labs. Records are in [facility] scanned documents Patient Identified by Name and : Yes, via phone Reason for Outreach Care Gap or Scheduling Wellness Visits Care Gap Reviewed:: Breast Cancer screening HBA1C/GMI KED (UACR/eGFR) Outreach Outcome/Action Unable to reach patient: Left message Population Health Navigation Workflow Abstract Care Gap Chart Review Payer: [employer] Navigation Signature: Josh Marion RN June 22, 2024 3:55 PM documented in this encounter [facility] 06-22-2024 Note Patient Outreach (FP DOYL) DIVINE GROSSMAN ([id number]) 1955 F Date Time Provider Department 06/22/24 JOSH MARION FPDOYL During your visit today, we recorded the following information about you: Josh Marion RN 06/26/2024 9:44 AM Addendum [facility] HEALTH NAVIGATION OUTREACH Action/ Patient returned call - reports last mammogram with [facility] Abstracted uACR, and eGFR from [facility] labs. Records are in [facility] scanned documents Patient Identified by Name and : Yes, via phone Reason for Outreach Care Gap or Scheduling Wellness Visits Care Gap Reviewed:: Breast Cancer screening HBA1C/GMI KED (UACR/eGFR) Outreach Outcome/Action Unable to reach patient: Left message Population Health Navigation Workflow Abstract Care Gap Chart Review Payer: [employer] Navigation Signature: Josh Marion RN June 22, 2024 3:55 PM Allergies As of Date: 06/22/2024 Noted Allergy Reaction CIPROFLOXACIN 03/15/2018 7 - Swelling Comments: tongue Date Reviewed: 05/29/2024 Reviewed by: Milla Dougherty LPN - Fully Assessed Reason for Visit: Population Health Navigation Outreach [3910] Cmt: [employer] Attributed Member - Chart Review Order(s):MICROALBUMIN/CREATININE UR W RATIO (EXTERNAL) [[id number]] Order #: [id number] GFR ESTIMATED [SQGFR1] Order #: [id number] Prescriptions as of 06/26/2024 - zoledronic acid/mannitol-water (RECLAST INTRAVENOUS) Inject intravenously. Once yearly. Endocrinology orders - JARDIANCE 25 mg tablet Take 25 mg by mouth once daily. - amitriptyline (ELAVIL) 25 mg tablet Take 1 tablet by mouth daily at bedtime. - atorvastatin (LIPITOR) 10 mg tablet Take 10 mg by mouth. Wednesday, Wednesday, and Wednesday. - Miso MediaTOUCH VERIO TEST STRIPS test strip USE TO TEST ONCE DAILY - ONETOUCH VERIO FLEX METER USE TO TEST ONCE DAILY - amitriptyline (ELAVIL) 10 mg tablet Take [...] once daily. Problem List As Of Date 06/22/2024 Noted Resolved Controlled type 2 diabetes mellitus without com* Mixed hyperlipidemia [E78.2] Malabsorption [K90.9] Obesity (BMI 30.0-34.9) [E66.811] Vitamin D deficiency [E55.9] Osteoporosis [M81.0] 10/05/2023 Encounter Status:Closed by JOSH MARION on 06/22/24 [facility] 06-05-2024 Telephone encounter Note Zoodleskhoi message sent with A1c reminder [facility] 06-05-2024 Miscellaneous Notes Mychart message sent with A1c reminder documented in this encounter [facility] 05-29-2024 Jalen Majano DO - 05/29/2024 8:34 AM EDT Screening schedule The following prevention plan is recommended: Depression Screening Never done Anxiety Screening Never done Hepatitis C Screening Never done DTaP,Tdap,Td Vaccine(1 - Tdap) Never done Pneumococcal Vaccine: 50+(2 of 2 - PPSV23) due on 01/11/2014 Diabetic Foot Exam due on 10/11/2019 Mammogram Screening due on 05/22/2022 Dilated Retinal Exam due on 01/18/2023 LDL Cholesterol due on 05/06/2023 Bone Density Screening due on 05/23/2023 HbA1C due on 11/11/2023 Advance Directive Discussion Never done Urine Albumin:Creatinine Ratio due on 04/25/2024 Covid-19 Vaccine() due on 04/26/2024 WHAT YOU CAN DO TO PREVENT FALLS Many falls can be prevented. By making some changes, you can lower your chances of falling. Four things YOU can do to prevent falls for you* and your caregiver 1. Begin a regular exercise program Exercise is one of the most important ways to lower your chances of falling. It makes you stronger and helps you feel better. Exercises that improve balance and coordination (like Harley Chi) are the most helpful. Lack of exercise leads to weakness and increases your chances of falling. Ask your doctor or health care provider about the best type of exercise program for you. 2. Have your health care provider review your medicines Have your doctor or pharmacist review all the medicines you take, even [id number] medicines. As you get older, the way medicines work in your body can change. Some medicines, or combinations of medicines, can make you sleepy or dizzy and can cause you to fall. 3. Have your vision checked Have your eyes checked by an eye doctor at least once a year. You may be wearing the wrong glasses or have a condition like glaucoma or cataracts that limits your vision. Poor vision can increase your chances of falling. 4. Make your home safer About half of all falls happen at home. To make your home safer: Remove things you can trip over (like papers, books, clothes, and shoes) from stairs and places where you walk. Remove small throw rugs or use double-sided tape to keep the rugs from slipping. Keep items you use often in cabinets you can reach easily without using a step stool. Have grab bars put in next to your toilet and in the tub or shower. Use non-slip mats in the bathtub and on shower floors. Improve the lighting in your home. As you get older, you need brighter lights to see well. Hang light-weight curtains or shades to reduce glare. Have handrails and lights put in on all staircases. Wear shoes both inside and outside the house. Avoid going barefoot or wearing slippers. For more information, contact: Centers for Disease Control and Prevention www.cdc.gov/injury * This information may not apply if you have certain medical conditions. documented in this encounter [facility] 05-29-2024 Note HNO ID: [id number] Author: JALEN KAUR DO Service: ? Author Type: Physician Type: Progress Notes Filed: 06/06/2024 20:05 Note Text: Divine Grossman is a 68 year old female here for a Medicare wellness visit. Medicare Health Risk Assessment General Health Very good Exercise: Minutes/Day 60 min Exercise: Days/Week 4 days Alcohol: Daily Use Monthly or less Alcohol: Drinks/Day 1 or 2 Alcohol: 6 or more drinks Never Feel off balance No Concerns: Teeth/Dentures No Concerns: Sexual function No Troubled by feelings None of the above Frequency: Eating healthy diet Nearly every day ADLs requiring help None of the above Safety precautions in home/vehicle Yes Smoke, vape, chews tobacco No Difficulty hearing No Difficulty seeing No Current Providers Specialists: I have reviewed specialist-related care of the patient in the medical record. Medical/Family history review Reviewed and updated problem list, medical/surgical/family/social history, medications, and allergies. Opioid use review Opioid Medications (last 90 days) No data to display Anxiety/Depression screening PHQ-2 Score: 0 (Lower risk for depression) Recommendation: no further intervention at this time Cognitive screening Mini Cog Score: 5 Cognitive screening reviewed and No further action needed (score 3-5). Functional Observation Was the patient's Timed Up AND Go test unsteady or >= 12 seconds? No Advance Care Planning Surrogate decision maker and/or advance care plan documented Patient has Living Will at home. Measurements BP 118/78 (BP Site: Left Arm, BP Position: Sitting) Pulse 91 Temp 36.4 ?C (97.6 ?F) Ht 5' 3 (1.6 m) Wt 174 lb (78.9 kg) SpO2 98% BMI 30.82 kg/m? Vision Screening: Follows with optometry/ophthalmology Assessment/Plan Medicare annual wellness visit, subsequent (Z00.00) - Counseled on healthy diet and regular exercise ASSESSMENT/PLAN: 1. Medicare annual wellness visit, subsequent - ICD9: V70.0, ICD10: Z00.00 (primary diagnosis) - Counseled on healthy diet and regular exercise - Follow up for annual exam in one year 2. Encounter for screening mammogram for breast cancer - ICD9: V76.12, ICD10: Z12.31 - JETT SCREENING W ROSALBA 3. Screening for diabetic retinopathy - ICD9: V80.2, ICD10: Z13.5 - CONSULT TO OPHTHALMOLOGY 4. Controlled type 2 diabetes mellitus without complication, without long-term current use of insulin (HCC) - ICD9: 250.00, ICD10: E11.9 - Control undetermined, due for labs - Managed by Endocrinology. - HEMOGLOBIN A1C - ALBUMIN/CREATININE RATIO, URINE 5. Mixed hyperlipidemia - ICD9: 272.2, ICD10: E78.2 - Control undetermined, due for labs - COMPLETE BLOOD COUNT AND DIFFERENTIAL - COMPREHENSIVE METABOLIC PANEL - LIPID PANEL, FASTING - URINALYSIS, WITH MICROSCOPIC 6. Screening for thyroid disorder - ICD9: V77.0, ICD10: Z13.29 - THYROID STIMULATING HORMONE 7. Screening for depression - ICD9: V79.0, ICD10: Z13.31 - DEPRESSION SCREENING 8. Post-menopausal - ICD9: V49.81, ICD10: Z78.0 - Order bone density. 9. Encounter for screening examination for other mental health and behavioral disorders - ICD9: V79.8, ICD10: Z13.39 - ANXIETY SCREENING 10. Special screening examination for viral disease - ICD9: V73.99, ICD10: Z11.59 - HEPATITIS C ANTIBODY IA WITH CONFIRMATION 11. Class 1 obesity with body mass index (BMI) of 30.0 to 30.9 in adult, unspecified obesity type, unspecified whether serious comorbidity present - ICD9: 278.00, V85.30, ICD10: E66.811, Z68.30 Provider Attestation: I, Jalen Kaur, DO personally performed the services described in this documentation. All medical record entries made by the scribe were at my direction and in my presence. I have reviewed the chart and discharge instructions (if applicable) and agree that the record reflects my personal performance and is accurate and complete. Electronically Signed: Jalen Kaur DO, May 29, 2024 8:35 AMScribe Attestation: The patient is seen and examined by Dr. Kaur and the following reflects his/her service. Scribed by Olamide Villanueva May 29, 2024 8:43 AM Jalen Kaur DO [facility] 05-29-2024 History of Presen t illness Narrative Images from the original note were not included. Divine Grossman is a 68 year old female here for a Medicare wellness visit. Medicare Health Risk Assessment General Health Very good Exercise: Minutes/Day 60 min Exercise: Days/Week 4 days Alcohol: Daily Use Monthly or less Alcohol: Drinks/Day 1 or 2 Alcohol: 6 or more drinks Never Feel off balance No Concerns: Teeth/Dentures No Concerns: Sexual function No Troubled by feelings None of the above Frequency: Eating healthy diet Nearly every day ADLs requiring help None of the above Safety precautions in home/vehicle Yes Smoke, vape, chews tobacco No Difficulty hearing No Difficulty seeing No Current Providers Specialists: I have reviewed specialist-related care of the patient in the medical record. Medical/Family history review Reviewed and updated problem list, medical/surgical/family/social history, medications, and allergies. Opioid use review Opioid Medications (last 90 days) No data to display Anxiety/Depression screening PHQ-2 Score: 0 (Lower risk for depression) Recommendation: no further intervention at this time Cognitive screening Mini Cog Score: 5 Cognitive screening reviewed and No further action needed (score 3-5). Functional Observation Was the patient's Timed Up & Go test unsteady or >= 12 seconds? No Advance Care Planning Surrogate decision maker and/or advance care plan documented Patient has Living Will at home. Measurements BP 118/78 (BP Site: Left Arm, BP Position: Sitting) Pulse 91 Temp 36.4 C (97.6 F) Ht 5' 3 (1.6 m) Wt 174 lb (78.9 kg) SpO2 98% BMI 30.82 kg/m Vision Screening: Follows with optometry/ophthalmology Assessment/Plan Medicare annual wellness visit, subsequent (Z00.00) - Counseled on healthy diet and regular exercise ASSESSMENT/PLAN: 1. Medicare annual wellness visit, subsequent - ICD9: V70.0, ICD10: Z00.00 (primary diagnosis) - Counseled on healthy diet and regular exercise - Follow up for annual exam in one year 2. Encounter for screening mammogram for breast cancer - ICD9: V76.12, ICD10: Z12.31 - JETT SCREENING W ROSALBA 3. Screening for diabetic retinopathy - ICD9: V80.2, ICD10: Z13.5 - CONSULT TO OPHTHALMOLOGY 4. Controlled type 2 diabetes mellitus without complication, without long-term current use of insulin (HCC) - ICD9: 250.00, ICD10: E11.9 - Control undetermined, due for labs - Managed by Endocrinology. - HEMOGLOBIN A1C - ALBUMIN/CREATININE RATIO, URINE 5. Mixed hyperlipidemia - ICD9: 272.2, ICD10: E78.2 - Control undetermined, due for labs - COMPLETE BLOOD COUNT AND DIFFERENTIAL - COMPREHENSIVE METABOLIC PANEL - LIPID PANEL, FASTING - URINALYSIS, WITH MICROSCOPIC 6. Screening for thyroid disorder - ICD9: V77.0, ICD10: Z13.29 - THYROID STIMULATING HORMONE 7. Screening for depression - ICD9: V79.0, ICD10: Z13.31 - DEPRESSION SCREENING 8. Post-menopausal - ICD9: V49.81, ICD10: Z78.0 - Order bone density. 9. Encounter for screening examination for other mental health and behavioral disorders - ICD9: V79.8, ICD10: Z13.39 - ANXIETY SCREENING 10. Special screening examination for viral disease - ICD9: V73.99, ICD10: Z11.59 - HEPATITIS C ANTIBODY IA WITH CONFIRMATION 11. Class 1 obesity with body mass index (BMI) of 30.0 to 30.9 in adult, unspecified obesity type, unspecified whether serious comorbidity present - ICD9: 278.00, V85.30, ICD10: E66.811, Z68.30 Provider Attestation: I, Jalen Kaur DO personally performed the services described in this documentation. All medical record entries made by the scribe were at my direction and in my presence. I have reviewed the chart and discharge instructions (if applicable) and agree that the record reflects my personal performance and is accurate and complete. Electronically Signed: Jalen Kaur DO, May 29, 2024 8:35 AMScribe Attestation: The patient is seen and examined by Dr. Kaur and the following reflects his/her service. Scribed by Olamide Villanueva May 29, 2024 8:43 AM Jalen Kaur DO documented in this encounter [facility] 05-16-2024 Note HNO ID: [id number] Author: CYNTHIA HARRISON, ? Service: ? Author Type: ? Type: Progress Notes Filed: 05/16/2024 16:02 Note Text: [facility] POPULATION HEALTH NAVIGATION OUTREACH Action/FYI Patient Identified by Name and : Yes, via EPIC - no outreach needed Reason for Outreach Care Gap or Scheduling Wellness Visits Care Gap Reviewed:: Breast Cancer screening Diabetic Eye Exam HBA1C/GMI KED (UACR/eGFR) Outreach Outcome/Action Population Health Navigation Workflow Pre-Visit Planning Payer: [employer] Navigation Signature: Cynthia Harrison May 16, 2024 4:01 PM [facility] 05-16-2024 History of Presen t illness Narrative [facility] POPULATION HEALTH NAVIGATION OUTREACH Action/FYI Patient Identified by Name and : Yes, via EPIC - no outreach needed Reason for Outreach Care Gap or Scheduling Wellness Visits Care Gap Reviewed:: Breast Cancer screening Diabetic Eye Exam HBA1C/GMI KED (UACR/eGFR) Outreach Outcome/Action Population Health Navigation Workflow Pre-Visit Planning Payer: [employer] Navigation Signature: Cynthia Harrison May 16, 2024 4:01 PM documented in this encounter [facility] 05-16-2024 Note Patient Outreach (AG ACM) DIVINE GROSSMAN ([id number]) 1955 F Date Time Provider Department 05/16/24 CHRISTYCYNTHIA AGA During your visit today, we recorded the following information about you: Cynthia Harrison 05/16/2024 4:02 PM Signed [facility] POPULATION HEALTH NAVIGATION OUTREACH Action/FYI Patient Identified by Name and : Yes, via EPIC - no outreach needed Reason for Outreach Care Gap or Scheduling Wellness Visits Care Gap Reviewed:: Breast Cancer screening Diabetic Eye Exam HBA1C/GMI KED (UACR/eGFR) Outreach Outcome/Action Population Health Navigation Workflow Pre-Visit Planning Payer: [employer] Navigation Signature: Cynthia Christy May 16, 2024 4:01 PM Allergies As of Date: 05/16/2024 Noted Allergy Reaction CIPROFLOXACIN 03/15/2018 7 - Swelling Comments: tongue Date Reviewed: 02/01/2024 Reviewed by: Milla Dougherty LPN - Fully Assessed Reason for Visit: Population Health Navigation Outreach [3910] Cmt: [employer] Attributed Member - Chart Review Prescriptions as of 05/16/2024 - JARDIANCE 25 mg tablet Take 25 mg by mouth once daily. - amitriptyline (ELAVIL) 25 mg tablet Take 1 tablet by mouth daily at bedtime. - atorvastatin (LIPITOR) 10 mg tablet Take 10 mg by mouth. Wednesday, Wednesday, and Wednesday. - ONETOUCH VERIO TEST STRIPS test strip USE TO TEST ONCE DAILY - ONETOUCH VERIO FLEX METER USE TO TEST ONCE DAILY - amitriptyline (ELAVIL) 10 mg tablet Take [...] once daily. Problem List As Of Date 05/16/2024 Noted Resolved Controlled type 2 diabetes mellitus without com* Mixed hyperlipidemia [E78.2] Malabsorption [K90.9] Obesity (BMI 30.0-34.9) [E66.811] Vitamin D deficiency [E55.9] Osteoporosis [M81.0] 10/05/2023 Encounter Status:Closed by CYNTHIA HARRISON on 05/16/24 [facility] 03-30-2024 Note HNO ID: [id number] Author: CHELSEA GREENE MA Service: ? Author Type: Licensed Prosthetist Type: Progress Notes Filed: 03/30/2024 14:42 Note Text: POPULATION HEALTH NAVIGATION OUTREACH Action/FYI Spoke with patient and sched wellness on 05/29 AND follow up on 11/27 Patient will do her DILATED RETINAL EXAM at [facility] Patient does her BREAST CANCER SCREENING at an outside facility Patient will do her A1C and KED with her outside endo provider. Reason for Outreach Care Gap/HCC or Scheduling Wellness Visits Care Gaps due: Medicare Annual Wellness Visit Follow-up Appointment Breast Cancer Screening Diabetic Eye Exam HBA1C KED Patient Contacted: Spoke to patient/parent/or legal guardian Patient identified by name and : Yes Care Gap/HCC/Scheduling Wellness actions taken: Patient scheduled/pended orders: Medicare Annual Wellness Visit Follow-up Appointment 05/29/2024 in [facility] with JALEN KAUR - Medicare wellness 11/27/2024 in [facility] with JALEN KAUR - 6 mos Follow up Navigation Signature: Chelsea Greene MA March 30, 2024 2:40 PM [facility] 03-30-2024 History of Presen t illness Narrative POPULATION HEALTH NAVIGATION OUTREACH Action/FYI Spoke with patient and sched wellness on 05/29 & follow up on 11/27 Patient will do her DILATED RETINAL EXAM at [facility] Patient does her BREAST CANCER SCREENING at an outside facility Patient will do her A1C and KED with her outside endo provider. Reason for Outreach Care Gap/HCC or Scheduling Wellness Visits Care Gaps due: Medicare Annual Wellness Visit Follow-up Appointment Breast Cancer Screening Diabetic Eye Exam HBA1C KED Patient Contacted: Spoke to patient/parent/or legal guardian Patient identified by name and : Yes Care Gap/HCC/Scheduling Wellness actions taken: Patient scheduled/pended orders: Medicare Annual Wellness Visit Follow-up Appointment 05/29/2024 in [facility] with JALEN KAUR - Medicare wellness 11/27/2024 in [facility] with JALEN KAUR - 6 mos Follow up Navigation Signature: Chelsea Greene MA March 30, 2024 2:40 PM documented in this encounter [facility] 03-30-2024 Note Patient Outreach (NE TNAV) DIVINE GROSSMAN ([id number]) 1955 F Date Time Provider Department 03/30/24 CHELSEA GREENE During your visit today, we recorded the following information about you: Chelsea Greene MA 03/30/2024 2:42 PM Signed POPULATION HEALTH NAVIGATION OUTREACH Action/FYI Spoke with patient and sched wellness on 05/29 AND follow up on 11/27 Patient will do her DILATED RETINAL EXAM at [facility] Patient does her BREAST CANCER SCREENING at an outside facility Patient will do her A1C and KED with her outside [facility] provider. Reason for Outreach Care Gap/HCC or Scheduling Wellness Visits Care Gaps due: Medicare Annual Wellness Visit Follow-up Appointment Breast Cancer Screening Diabetic Eye Exam HBA1C KED Patient Contacted: Spoke to patient/parent/or legal guardian Patient identified by name and : Yes Care Gap/HCC/Scheduling Wellness actions taken: Patient scheduled/pended orders: Medicare Annual Wellness Visit Follow-up Appointment 05/29/2024 in [facility] with JALEN KAUR - Medicare wellness 11/27/2024 in [facility] with JALEN KAUR - 6 mos Follow up Navigation Signature: Chelsea Greene MA March 30, 2024 2:40 PM Allergies As of Date: 03/30/2024 Noted Allergy Reaction CIPROFLOXACIN 03/15/2018 7 - Swelling Comments: tongue Date Reviewed: 02/01/2024 Reviewed by: Milla Dougherty LPN - Fully Assessed Reason for Visit: Population Health Navigation Outreach [3910] Cmt: Tetotmaria alejandra High Risk- Attempt 1 Prescriptions as of 03/30/2024 - JARDIANCE 25 mg tablet Take 25 mg by mouth once daily. - amitriptyline (ELAVIL) 25 mg tablet Take 1 tablet by mouth daily at bedtime. - atorvastatin (LIPITOR) 10 mg tablet Take 10 mg by mouth. Wednesday, Wednesday, and Wednesday. - ONETOUCH VERIO TEST STRIPS test strip USE TO TEST ONCE DAILY - ONETOUCH VERIO FLEX METER USE TO TEST ONCE DAILY - amitriptyline (ELAVIL) 10 mg tablet Take [...] once daily. Problem List As Of Date 03/30/2024 Noted Resolved Controlled type 2 diabetes mellitus without com* Mixed hyperlipidemia [E78.2] Malabsorption [K90.9] Obesity (BMI 30.0-34.9) [E66.811] Vitamin D deficiency [E55.9] Osteoporosis [M81.0] 10/05/2023 Encounter Status:Closed by CHELSEA GREENE on 03/30/24 [facility] 02-03-2024 History of Presen t illness Narrative [facility] POPULATION HEALTH NAVIGATION OUTREACH Action/FYI A1c - 05/11/2023 with [facility] - 6.4 DM Eye 01/18/2023 with [facility] ([phone]). Requested office to fax record to [facility] Population Health Navigation, fax [phone], to be added to Epic chart. Once records are received, they will be faxed to [facility] Medical Records to be scanned into [employer] and faxed to PCP for review. KED 04-26-2023. Abstracted from scanned document Mamm - Intends to schedule mammogram for 2024 at [facility]. Will have records faxed to [facility] Patient Identified by Name and : Yes, via phone Reason for Outreach Care Gap or Scheduling Wellness Visits Care Gap Reviewed:: Annual Wellness visit Breast Cancer screening Diabetic Eye Exam HBA1C/GMI KED (UACR/eGFR) Outreach Outcome/Action Spoke to patient / parent / legal guardian: No action required (information or reminder only) Population Health Navigation Workflow Abstract Care Gap Chart Review Pre-Visit Planning Payer: [employer] Navigation Signature: Josh Marion RN February 03, 2024 9:28 AM documented in this encounter [facility] 02-03-2024 Note HNO ID: [id number] Author: JOSH MARION RN Service: ? Author Type: Registered Nurse Type: Progress Notes Filed: 02/03/2024 10:13 Note Text: [facility] POPULATION HEALTH NAVIGATION OUTREACH Action/FYI A1c - 05/11/2023 with [facility] - 6.4 DM Eye 01/18/2023 with [facility] ([phone]). Requested office to fax record to [facility] Population Health Navigation, fax [phone], to be added to [facility] chart. Once records are received, they will be faxed to [facility] Medical Records to be scanned into Epic and faxed to PCP for review. KED 04-26-2023. Abstracted from scanned document Mamm - Intends to schedule mammogram for 2024 at [facility]. Will have records faxed to Patient Identified by Name and : Yes, via phone Reason for Outreach Care Gap or Scheduling Wellness Visits Care Gap Reviewed:: Annual Wellness visit Breast Cancer screening Diabetic Eye Exam HBA1C/GMI KED (UACR/eGFR) Outreach Outcome/Action Spoke to patient / parent / legal guardian: No action required (information or reminder only) Population Health Navigation Workflow Abstract Care Gap Chart Review Pre-Visit Planning Payer: [employer] Navigation Signature: Josh Marion RN February 03, 2024 9:28 AM [facility] 02-03-2024 Note Patient Outreach ( ACM) DIVINE GROSSMAN ([id number]) 1955 F Date Time Provider Department 02/03/24 JOSH MARION [facility] During your visit today, we recorded the following information about you: Josh Marion RN 02/03/2024 10:13 AM Signed [facility] POPULATION HEALTH NAVIGATION OUTREACH Action/FYI A1c - 05/11/2023 with [facility] - 6.4 DM Eye 01/18/2023 with [facility] ([phone]). Requested office to fax record to [facility] Population Health Navigation, fax [phone], to be added to [employer] chart. Once records are received, they will be faxed to [facility] Medical Records to be scanned into [employer] and faxed to PCP for review. KED 04-26-2023. Abstracted from scanned document Mamm - Intends to schedule mammogram for 2024 at [facility]. Will have records faxed to Patient Identified by Name and : Yes, via phone Reason for Outreach Care Gap or Scheduling Wellness Visits Care Gap Reviewed:: Annual Wellness visit Breast Cancer screening Diabetic Eye Exam HBA1C/GMI KED (UACR/eGFR) Outreach Outcome/Action Spoke to patient / parent / legal guardian: No action required (information or reminder only) Population Health Navigation Workflow Abstract Care Gap Chart Review Pre-Visit Planning Payer: [employer] Navigation Signature: Josh Marion RN February 03, 2024 9:28 AM Allergies As of Date: 02/03/2024 Noted Allergy Reaction CIPROFLOXACIN 03/15/2018 7 - Swelling Comments: tongue Date Reviewed: 02/01/2024 Reviewed by: Milla Dougherty LPN - Fully Assessed Reason for Visit: Population Health Navigation Outreach [3910] Cmt: [employer] Attributed Member - Chart Review Order(s):MICROALBUMIN/CREATININE UR W RATIO (EXTERNAL) [[id number]] Order #: [id number] HEMOGLOBIN A1C [[id number]] Order #: [id number] Prescriptions as of 02/03/2024 - JARDIANCE 25 mg tablet Take 25 mg by mouth once daily. - amitriptyline (ELAVIL) 25 mg tablet Take 1 tablet by mouth daily at bedtime. - atorvastatin (LIPITOR) 10 mg tablet Take 10 mg by mouth. Wednesday, Wednesday, and Wednesday. - ONETOUCH VERIO TEST STRIPS test strip USE TO TEST ONCE DAILY - ONETOUCH VERIO FLEX METER USE TO TEST ONCE DAILY - amitriptyline (ELAVIL) 10 mg tablet Take [...] once daily. Problem List As Of Date 02/03/2024 Noted Resolved Controlled type 2 diabetes mellitus without com* Mixed hyperlipidemia [E78.2] Malabsorption [K90.9] Obesity (BMI 30.0-34.9) [E66.811] Vitamin D deficiency [E55.9] Osteoporosis [M81.0] 10/05/2023 Encounter Status:Closed by JOSH MARION on 02/03/24 [facility] 02-01-2024 Note HNO ID: [id number] Author: JALEN KAUR, DO Service: ? Author Type: Physician Type: Progress Notes Filed: 02/13/2024 15:36 Note Text: [facility] [place] DO Harshad [address] [place] [address] Date of Evaluation: 02/01/2024 Patient Name: Divine Grossman : 1955 Chief Complaint: Patient presents with: muscle tension headache: Refill request amitriptyline Subjective Ms. Grossman is a 68 year old female who presents with the following complaint(s): The history is provided by the patient. No granite polisher machine was used. Headache This is a recurrent problem. Pertinent negatives include no palpitations and no shortness of breath. Treatments tried: Elavil. Review of Systems Constitutional: Negative for fatigue [...] type 2 diabetes mellitus without complication (HCC) Gastric ulcer H/O gastric bypass Malabsorption Mixed hyperlipidemia Obesity (BMI 30.0-34.9) Osteoporosis TBI (traumatic brain injury) (HCC) 2009 again in 2013 Uterine cancer (HCC) Vitamin D deficiency PAST SURGICAL HISTORY Procedure Laterality Date SNGL COLONOSCOPY SCREENING 09/21/2022 Non-bleeding internal hemorrhoids GASTRIC BYPASS HX HERNIA REPAIR HX HYSTERECTOMY HX TONSILLECTOMY AND ADENOIDECTOMY FAMILY HISTORY Problem Relation Age of Onset Stroke Mother Diabetes Sister Social History Tobacco Use Smoking status: Never Smokeless tobacco: Never Vaping Use Vaping status: Never Used Substance Use Topics Alcohol use: Yes Comment: Rare Drug use: Never Current Outpatient Medications Medication Sig JARDIANCE 25 mg tablet Take 25 mg by mouth once daily. atorvastatin (LIPITOR) 10 mg tablet Take 10 mg by mouth. Wednesday, Wednesday, and Wednesday. ONETOUCH VERIO TEST STRIPS test strip USE TO TEST ONCE DAILY ONETOUCH VERIO FLEX METER USE TO TEST ONCE DAILY metFORMIN (GLUCOPHAGE) 1,000 mg tablet Take 1 tablet by mouth twice daily. amitriptyline (ELAVIL) 25 mg tablet Take 1 tablet by mouth daily at bedtime. amitriptyline (ELAVIL) 10 mg tablet Take 1 [...] ORAL) Take by mouth. Cholecalciferol, Vitamin D3, 25 mcg (1,000 unit) cap Take 1,000 Units by mouth once daily. No current facility-administered medications for this visit. I have confirmed and edited as necessary the past medical, family and social histories, HPI, and ROS obtained by others. Objective BP 130/80 Pulse 65 Temp 97.5 Ht 5' 3 (1.60m) Wt 175 lb (79.4kg) SpO2 99% BMI 31.01 kg/(m2). Physical Exam Vitals and nursing note [...] Normal pulses. Heart sounds: Normal heart sounds. Abdominal: General: Abdomen is flat. Musculoskeletal: General: Normal range of motion. Right shoulder: Normal. Left shoulder: Normal. Cervical back: Normal, f (more content not included)... [facility] 02-01-2024 History of Presen t illness Narrative Images from the original note were not included. [facility] [place] Harshad [address] [place] [address] Date of Evaluation: 02/01/2024 Patient Name: Divine Grossman : 1955 Chief Complaint: Patient presents with: muscle tension headache: Refill request amitriptyline Subjective Ms. Grossman is a 68 year old female who presents with the following complaint(s): The history is provided by the patient. No granite polisher machine was used. Headache This is a recurrent problem. Pertinent negatives include no palpitations and no shortness of breath. Treatments tried: Elavil. Review of Systems Constitutional: Negative for fatigue [...] type 2 diabetes mellitus without complication (HCC) Gastric ulcer H/O gastric bypass Malabsorption Mixed hyperlipidemia Obesity (BMI 30.0-34.9) Osteoporosis TBI (traumatic brain injury) (HCC) 2009 again in 2013 Uterine cancer (HCC) Vitamin D deficiency PAST SURGICAL HISTORY Procedure Laterality Date SNGL COLONOSCOPY SCREENING 09/21/2022 Non-bleeding internal hemorrhoids GASTRIC BYPASS HX HERNIA REPAIR HX HYSTERECTOMY HX TONSILLECTOMY & ADENOIDECTOMY <AGE 12 FAMILY HISTORY Problem Relation Age of Onset Stroke Mother Diabetes Sister Social History Tobacco Use Smoking status: Never Smokeless tobacco: Never Vaping Use Vaping status: Never Used Substance Use Topics Alcohol use: Yes Comment: Rare Drug use: Never Current Outpatient Medications Medication Sig JARDIANCE 25 mg tablet Take 25 mg by mouth once daily. atorvastatin (LIPITOR) 10 mg tablet Take 10 mg by mouth. Wednesday, Wednesday, and Wednesday. ONETOUCH VERIO TEST STRIPS test strip USE TO TEST ONCE DAILY ONETOUCH VERIO FLEX METER USE TO TEST ONCE DAILY metFORMIN (GLUCOPHAGE) 1,000 mg tablet Take 1 tablet by mouth twice daily. amitriptyline (ELAVIL) 25 mg tablet Take 1 tablet by mouth daily at bedtime. amitriptyline (ELAVIL) 10 mg tablet Take 1 [...] ORAL) Take by mouth. Cholecalciferol, Vitamin D3, 25 mcg (1,000 unit) cap Take 1,000 Units by mouth once daily. No current facility-administered medications for this visit. I have confirmed and edited as necessary the past medical, family and social histories, HPI, and ROS obtained by others. Objective BP 130/80 Pulse 65 Temp 97.5 Ht 5' 3 (1.60m) Wt 175 lb (79.4kg) SpO2 99% BMI 31.01 kg/(m^2). Physical Exam Vitals and nursing note [...] Normal pulses. Heart sounds: Normal heart sounds. Abdominal: General: Abdomen is flat. Musculoskeletal: General: Normal range of motion. Right [...] tension headache - ICD9: 307.81, ICD10: G44.209 (primary diagnosis) -Continue Amitriptyline. - AMITRIPTYLINE 25 MG TABLET 2. Class 1 obesity with body mass index (BMI) of 31.0 to 31.9 in adult, unspecified obesity type, unspecified whether serious comorbidity present - ICD9: 278.00, V85.31, ICD10: E66.811, Z68.31 Return in about 6 months (around 08/01/2024). Jalen Kaur DO Attestation: Scribe Attestation: The patient is seen and examined by Dr. Kaur and the following reflects his/her service. Scribed by Olamide Villanueva February 01, 2024 4:12 PMProvider Attestation: I, Jalen Kaur DO personally performed the services described in this documentation. All medical record entries made by the scribe were at my direction and in my presence. I have reviewed the chart and discharge instructions (if applicable) and agree that the record reflects my personal performance and is accurate and complete. Electronically Signed: Jalen Kuar DO, February 01, 2024 4:36 PM documented in this encounter [facility] 12-28-2023 Note HNO ID: [id number] Author: JALEN KAUR DO Service: ? Author Type: Physician Type: Progress Notes Filed: 01/02/2024 14:52 Note Text: VIRTUAL VISIT PROGRESS NOTE This is a virtual visit using Audio Only Visit. Had to call patient, she was unable to connect to audio. It required patient-provider interaction for the medical decision making as documented below. I have communicated my name and active licensure. The patient's identity and physical location were verified at the time of this visit. Either the patient or their legal marketing sales representative has been informed of the risks and benefits of -- and alternatives to -- treatment through a remote evaluation and consents to proceed with the evaluation remotely. Divine Grossman is a 68 year old female seen for Follow up Fall and strain left ring finger . Patient missed a step while was waking and fell. HISTORY REVIEWED (electronic chart updated): PAST MEDICAL HISTORY Diagnosis Date Controlled type 2 diabetes mellitus without complication (HCC) Gastric ulcer H/O gastric bypass Malabsorption Mixed hyperlipidemia Obesity (BMI 30.0-34.9) Osteoporosis TBI (traumatic brain injury) (HCC) 2009 again in 2013 Uterine cancer (HCC) Vitamin D deficiency PAST SURGICAL HISTORY Procedure Laterality Date SNGL COLONOSCOPY SCREENING 09/21/2022 Non-bleeding internal hemorrhoids GASTRIC BYPASS HX HERNIA REPAIR HX HYSTERECTOMY HX TONSILLECTOMY AND ADENOIDECTOMY FAMILY HISTORY Problem Relation Age of Onset Stroke Mother Diabetes Sister Social History Tobacco Use Smoking status: Never Smokeless tobacco: Never Vaping Use Vaping status: Never Used Substance Use Topics Alcohol use: Yes Comment: Rare Drug use: Never Current Outpatient Medications Medication Sig amitriptyline (ELAVIL) 25 mg tablet Take 1 tablet by mouth daily at bedtime. atorvastatin (LIPITOR) 10 mg tablet Take 10 [...] hs (Patient not taking: Reported on 06/12/2022) metFORMIN (GLUCOPHAGE) 1,000 mg tablet Take 1 tablet by mouth twice daily. simvastatin (ZOCOR) 20 mg tablet Take 1 tablet by mouth daily at bedtime. (Patient not taking: Reported on 06/12/2022) Calcium Citrate-Vitamin D3 200 mg-6.25 mcg (250 unit) tab Take by mouth. (Patient not taking: Reported on 06/12/2022) A/C/E/ZINC OX/CUPRIC OX/LUTEIN ([facility]) Take by mouth. Cholecalciferol, Vitamin D3, 25 mcg (1,000 unit) cap Take 1,000 Units by mouth once daily. No current facility-administered medications for this visit. ALLERGIES Allergen Reactions Ciprofloxacin Swelling tongue ASSESSMENT: (S63.615D) Sprain of left ring finger, unspecified site of digit, subsequent encounter (primary encounter diagnosis) (W10.8XXS) Fall (on) (from) other stairs and steps, sequela ASSESSMENT/PLAN: 1. Sprain of left ring finger, unspecified site of digit, subsequent encounter - ICD9: V58.89, 842.10, ICD10: S63.615D (primary diagnosis) - Follow up ED - Patient advised to continue ROM exercises, ise splint for comfort. Continue Ice as needed and tylenol for pain. 2. Fall (on) (from) other stairs and steps, sequela - ICD9: E880.9, ICD10: W10.8XXS Scribe Attestation: The patient is seen and examined by Dr. Kaur and the following reflects his/her service. Scribed by Olamide Villanueva December 28, 2023 3:07 PMProvider Attestation: I, Jalen Kaur DO personally performed the services described in this documentation. All medical record entries made by the scribe were at my direction and in my presence. I have reviewed the chart and discharge instructions (if applicable) and agree that the record reflects my personal performance and is accurate and complete. Electronically Signed: Jalen Kaur DO, January 02, 2024 4:51 PM [facility] 12-28-2023 History of Presen t illness Narrative VIRTUAL VISIT PROGRESS NOTE This is a virtual visit using Audio Only Visit. Had to call patient, she was unable to connect to audio. It required patient-provider interaction for the medical decision making as documented below. I have communicated my name and active licensure. The patient's identity and physical location were verified at the time of this visit. Either the patient or their legal marketing sales representative has been informed of the risks and benefits of -- and alternatives to -- treatment through a remote evaluation and consents to proceed with the evaluation remotely. Divine Grossman is a 68 year old female seen for Follow up Fall and strain left ring finger . Patient missed a step while was waking and fell. HISTORY REVIEWED (electronic chart updated): PAST MEDICAL HISTORY Diagnosis Date Controlled type 2 diabetes mellitus without complication (HCC) Gastric ulcer H/O gastric bypass Malabsorption Mixed hyperlipidemia Obesity (BMI 30.0-34.9) Osteoporosis TBI (traumatic brain injury) (HCC) 2009 again in 2013 Uterine cancer (HCC) Vitamin D deficiency PAST SURGICAL HISTORY Procedure Laterality Date SNGL COLONOSCOPY SCREENING 09/21/2022 Non-bleeding internal hemorrhoids GASTRIC BYPASS HX HERNIA REPAIR HX HYSTERECTOMY HX TONSILLECTOMY & ADENOIDECTOMY <AGE 12 FAMILY HISTORY Problem Relation Age of Onset Stroke Mother Diabetes Sister Social History Tobacco Use Smoking status: Never Smokeless tobacco: Never Vaping Use Vaping status: Never Used Substance Use Topics Alcohol use: Yes Comment: Rare Drug use: Never Current Outpatient Medications Medication Sig amitriptyline (ELAVIL) 25 mg tablet Take 1 tablet by mouth daily at bedtime. atorvastatin (LIPITOR) 10 mg tablet Take 10 [...] hs (Patient not taking: Reported on 06/12/2022) metFORMIN (GLUCOPHAGE) 1,000 mg tablet Take 1 tablet by mouth twice daily. simvastatin (ZOCOR) 20 mg tablet Take 1 tablet by mouth daily at bedtime. (Patient not taking: Reported on 06/12/2022) Calcium Citrate-Vitamin D3 200 mg-6.25 mcg (250 unit) tab Take by mouth. (Patient not taking: Reported on 06/12/2022) A/C/E/ZINC OX/CUPRIC OX/LUTEIN ([facility]) Take by mouth. Cholecalciferol, Vitamin D3, 25 mcg (1,000 unit) cap Take 1,000 Units by mouth once daily. No current facility-administered medications for this visit. ALLERGIES Allergen Reactions Ciprofloxacin Swelling tongue ASSESSMENT: (S63.615D) Sprain of left ring finger, unspecified site of digit, subsequent encounter (primary encounter diagnosis) (W10.8XXS) Fall (on) (from) other stairs and steps, sequela ASSESSMENT/PLAN: 1. Sprain of left ring finger, unspecified site of digit, subsequent encounter - ICD9: V58.89, 842.10, ICD10: S63.615D (primary diagnosis) - Follow up ED - Patient advised to continue ROM exercises, ise splint for comfort. Continue Ice as needed and tylenol for pain. 2. Fall (on) (from) other stairs and steps, sequela - ICD9: E880.9, ICD10: W10.8XXS Scribe Attestation: The patient is seen and examined by Dr. Kaur and the following reflects his/her service. Scribed by Olamide Villanueva December 28, 2023 3:07 PMProvider Attestation: IJalen, DO personally performed the services described in this documentation. All medical record entries made by the scribe were at my direction and in my presence. I have reviewed the chart and discharge instructions (if applicable) and agree that the record reflects my personal performance and is accurate and complete. Electronically Signed: Jalen Kaur DO, January 02, 2024 4:51 PM documented in this encounter [facility] 12-22-2023 Note HNO ID: [id number] Author: MILLA DOUGHRETY LPN Service: ? Author Type: LICENSED NURSE Type: Progress Notes Filed: 12/22/2023 10:03 Note Text: ED Follow Up: Patient discharged from [facility] ED on 12/21/23. 1. How are you feeling since your ED visit? States she is good and better Have your symptoms improved or resolved? Yes 2. Were you prescribed any medications while in the ED or advised to stop any medication? No - If yes, were you able to fill your prescriptions? Not applicable -if stopped medication, what was the medication? 3. Were you advised to schedule a follow up appointment with your provider? No - If no, Do you feel like you need an appointment scheduled? Yes. Patient states she wants to schedule her appointment for next week. Patient is scheduled. - If yes, Do you need this scheduled now or has this already been scheduled? Yes 4. Were you able to contact the office or reception interviewer provider prior to your ED visit? Not applicable 5. Is there anything else I can do for you today? No [facility] 12-22-2023 History of Presen t illness Narrative ED Follow Up: Patient discharged from [facility] ED on 12/21/23. 1. How are you feeling since your ED visit? States she is good and better Have your symptoms improved or resolved? Yes 2. Were you prescribed any medications while in the ED or advised to stop any medication? No - If yes, were you able to fill your prescriptions? Not applicable -if stopped medication, what was the medication? 3. Were you advised to schedule a follow up appointment with your provider? No - If no, Do you feel like you need an appointment scheduled? Yes. Patient states she wants to schedule her appointment for next week. Patient is scheduled. - If yes, Do you need this scheduled now or has this already been scheduled? Yes 4. Were you able to contact the office or reception interviewer provider prior to your ED visit? Not applicable 5. Is there anything else I can do for you today? No documented in this encounter [facility] 12-22-2023 Note Patient Outreach (FP DOYL) DIVINE GROSSMAN ([id number]) 1955 F Date Time Provider Department 12/22/23 JALEN KAURDOYL During your visit today, we recorded the following information about you: Milla Dougherty LPN 12/22/2023 10:03 AM Signed ED Follow Up: Patient discharged from [facility] ED on 12/21/23. 1. How are you feeling since your ED visit? States she is good and better Have your symptoms improved or resolved? Yes 2. Were you prescribed any medications while in the ED or advised to stop any medication? No - If yes, were you able to fill your prescriptions? Not applicable -if stopped medication, what was the medication? 3. Were you advised to schedule a follow up appointment with your provider? No - If no, Do you feel like you need an appointment scheduled? Yes. Patient states she wants to schedule her appointment for next week. Patient is scheduled. - If yes, Do you need this scheduled now or has this already been scheduled? Yes 4. Were you able to contact the office or reception interviewer provider prior to your ED visit? Not applicable 5. Is there anything else I can do for you today? No Allergies As of Date: 12/22/2023 Noted Allergy Reaction CIPROFLOXACIN 03/15/2018 7 - Swelling Comments: tongue Date Reviewed: 09/21/2022 Reviewed by: Naomi Hartley RN - Fully Assessed Reason for Visit: Transition Of Care [4074] ER F/U [41] Cmt: Femi Loomis MIK 12/21/23 Prescriptions as of 12/22/2023 - amitriptyline (ELAVIL) 25 mg tablet Take 1 tablet by mouth daily at bedtime. - atorvastatin (LIPITOR) 10 mg tablet Take 10 mg by mouth once daily. - ONETOUCH VERIO TEST STRIPS test strip USE TO TEST ONCE DAILY - ONETOUCH VERIO FLEX METER USE TO TEST ONCE DAILY - amitriptyline (ELAVIL) 10 mg tablet Take [...] once daily. Problem List As Of Date 12/22/2023 Noted Resolved Controlled type 2 diabetes mellitus without com* Mixed hyperlipidemia [E78.2] Malabsorption [K90.9] Obesity (BMI 30.0-34.9) [E66.811] Vitamin D deficiency [E55.9] Encounter Status:Closed by MILLA DOUGHERTY on 12/22/23 [facility] 12-21-2023 Emergency department Note Discharge teaching completed. Pt verbalizes understanding of medications and follow up care discussed. Pt is stable and ambulatory upon discharge. Pt is a/o x 4; breathing is even and unlabored on room air. No distress noted. Pt leaves ED with all belongings. [facility] 12-21-2023 Note Discharge teaching c ompleted. Pt verbalizes understanding of medications and follow up care discussed. Pt is stable and ambulatory upon discharge. Pt is a/o x 4; breathing is even and unlabored on room air. No distress noted. Pt leaves ED with all belongings. [facility] 12-21-2023 Emergency department Note Discharge teaching completed. Pt verbalizes understanding of medications and follow up care discussed. Pt is stable and ambulatory upon discharge. Pt is a/o x 4; breathing is even and unlabored on room air. No distress noted. Pt leaves ED with all belongings. [facility] ED EMERGENCY DEPARTMENT ENCOUNTER Pt Name: Divine Grossman Birthdate 1955 Date of evaluation: 12/21/2023 Provider: Moe Lewis MD CHIEF COMPLAINT Chief Complaint Patient presents with Fall Pt had a mechanical fall while going up unfamiliar steps Hand Injury Left hand injury s/p fall HISTORY OF PRESENT ILLNESS (Location/Symptom, Timing/Onset,Context/Setting, Quality, Duration, Modifying Factors, Severity) Note limiting factors. Divine Grossman is a 68 y.o. female who presents to the emergency department with fall. 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 No other injury. Complains of tenderness at the base of the fourth and fifth proximal phalanx. Left hand. No wrist pain. No knee pain. No hip pain. Not hit her head. No other injuries or complaints. Comes in to be seen. HPI Historian is the patient Nurse's notes for past medical history, surgical history, social history were reviewed. Medications and allergies reviewed. PAST MEDICAL HISTORY Past Medical History: Diagnosis Date Diabetes mellitus (HCC) TBI (traumatic brain injury) (HCC) SURGICALHISTORY Past Surgical History: Procedure Laterality Date CHOLECYSTECTOMY GASTRIC BYPASS HERNIA REPAIR HYSTERECTOMY CURRENT MEDICATIONS Previous Medications AMITRIPTYLINE (ELAVIL) 10 MG TABLET Take 1 tablet by mouth Nightly. ATORVASTATIN (LIPITOR) 10 MG TABLET BLOOD GLUCOSE MONITORING SUPPL (Switchcam VERIO FLEX SYSTEM) W/DEVICE KIT USE TO TEST ONCE DAILY CALCIUM-CHOLECALCIFEROL 200-6.25 MG-MCG TABLET Take by mouth. CHOLECALCIFEROL (VITAMIN D-3) 25 MCG (1000 UT) CAPSULE Take 1,000 Units by mouth in the morning. EMPAGLIFLOZIN (JARDIANCE) 10 MG Take 10 mg by mouth daily. METFORMIN (GLUCOPHAGE) 1000 MG TABLET ONETOUCH VERIO TEST STRIP USE TO TEST ONCE DAILY Ciprofloxacin FAMILY HISTORY No family history on file. SOCIAL HISTORY Social History Socioeconomic History Marital status: Tobacco Use Smoking status: Never Smokeless tobacco: Never Substance and Sexual Activity Alcohol use: Yes Drug use: Never SCREENINGS PHYSICAL EXAM (up to 7 for level 4, 8 or more for level 5) @EDTRIAGEVSS@ Appropriate PPE including n 95, gown, gloves, goggles where worn when appropriate with this patient. Physical Exam Examination left upper extremity tenderness and abrasion to the distal fifth and fourth metacarpal into the proximal fifth and fourth phalanx region. There is soft tissue swelling especially base of the fourth. No third second or thumb tenderness. No proximal meta carpal tenderness. No wrist tenderness. No tenderness of the knees. No elbow or shoulder tenderness to the left. DIAGNOSTIC RESULTS RADIOLOGY: Interpretation per the Radiologist below, if availableat the time of this note: XR hand 3+ views left Final Result No acute osseous process. Report Dictated on Electronically Signed By: Cynthia Rizo MD Electronically Signed Date/Time: 12/21/2023 6:19 PM EST ED BEDSIDE ULTRASOUND: Performed by ED Physician - none LABS: Labs Reviewed - No data to display All other labs were within normal range or not returned as of thisdictation. EMERGENCYDEPARTMENT COURSE and DIFFERENTIAL DIAGNOSIS/MDM: Vitals: Vitals: 12/21/23 1722 BP: 137/79 BP Location: Right arm Patient Position: Lying Pulse: 96 Resp: 18 Temp: 36.4 C (97.6 F) TempSrc: Temporal SpO2: 97% Weight: 77.1 kg (170 lb) Height: 1.6 m (5' 3) Medical Decision Making EMERGENCY DEPARTMENT COURSE and DIFFERENTIAL DIAGNOSIS/MDM: Vitals: Vitals: 12/21/23 1722 BP: 137/79 BP Location: Right arm Patient Position: Lying Pulse: 96 Resp: 18 Temp: 36.4 C (97.6 F) TempSrc: Temporal SpO2: 97% Weight: 77.1 kg (170 lb) Height: 1.6 m (5' 3) The patient presented with a chief complaint of fall and left hand pain. The differential diagnosis associated with this patient's presentation includes sprain contusion fracture dislocation. Our workup consisted of ordering/reviewing x-ray of the left hand. I believe she has a left fourth and fifth finger sprain. Will place her in aluminum splint to the fourth finger with aileen taping to the third finger. She has good range of motion of the fifth finger but limited full range of motion secondary to pain of the ring finger on the left. Normal capillary refill no signs of dislocation. Will give her sports medicine for follow-up. Aluminum splint applied by nursing staff I rechecked that she is neurologically neurovascular intact after splint is applied. Patient agrees to plan. Starting a couple days come out of the splint and do gentle range of motion and then go back in the splint for comfort. Ice to the area. Advised her that she should not stay in the splint too long as it can get very stiff but also she does not have to force it through full range of motion. Diagnoses as of 12/21/23 1847 Sprain of left ring finger, unspecified site of digit, initial encounter Diagnostics considered but not indicated based on history, physical, testing: X-ray of the wrist however not clinically indicated based on history and physical External records reviewed: Records reviewed family medicine visit on 10/06/2023 for population health evaluation. Radiologic diagnostics interpreted by me: film images such as CT, Ultrasound and MRI are read by the radiologist. Plain radiographic images are visualized and preliminarily interpreted by the emergency physician with the below findings: Xray(s) per my interpretation no acute fracture dislocation Discussions with other clinicians: none Chronic conditions impacting care: Diabetes traumatic brain injury Social determinants of health affecting care: none Shared decision making: Patient agrees to treatment plan ED Medications managed: Medications - No data to display Prescription drugs prescribed: PROCEDURES: Unless otherwise noted below, none Procedures IMPRESSION 1. Sprain of left ring finger, unspecified site of digit, initial encounter DISPOSITION/PLAN DISPOSITION Discharge 12/21/2023 06:46:59 PM PATIENT REFERRED TO: No follow-up provider specified. DISCHARGE MEDICATIONS: New Prescriptions No medications on file @[facility]([id number]:LAST:1)@ (Comment: Please notethis report has been produced using speech recognition software and may contain errors related to that system including errors in grammar, punctuation, and spelling, as well as words and phrases that may be inappropriate.If there is any questions or concerns please feel free to contact the dictating provider for clarification). Moe Lewis MD (electronically signed) Attending Emergency Physician Moe Lewis MD 12/21/231847 Pt ambulatory on arrive, pt had a mechanical fall up unfamiliar stairs today and landed on left hand documented in this encounter [facility] 12-21-2023 Hospital Discharg e instructions Moe Lewis MD - 12/21/2023 6:47 PM EST Use splint for comfort but starting a couple days come out of the splint and do gentle range of motion and then continue use the splint for comfort. Ice to the area that sore. Motrin Tylenol for pain. Follow-up with sports medicine in 1 week. The following attachments cannot be sent through Care Everywhere.Finger Sprain Discharge Instructions (Greek)Finger Sprain Exercises (Greek)documented in this encounter [facility] 12-21-2023 Emergency department Triage note Pt ambulatory on arrive, pt had a mechanical fall up unfamiliar stairs today and landed on left hand [facility] 12-21-2023 Physician Emergency department Note [facility] ED EMERGENCY DEPARTMENT ENCOUNTER Pt Name: Divine Grossman Birthdate 1955 Date of evaluation: 12/21/2023 Provider: Moe Lewis MD CHIEF COMPLAINT Chief Complaint Patient presents with Fall Pt had a mechanical fall while going up unfamiliar steps Hand Injury Left hand injury s/p fall HISTORY OF PRESENT ILLNESS (Location/Symptom, Timing/Onset,Context/Setting, Quality, Duration, Modifying Factors, Severity) Note limiting factors. Divine Grossman is a 68 y.o. female who presents to the emergency department with fall. 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 No other injury. Complains of tenderness at the base of the fourth and fifth proximal phalanx. Left hand. No wrist pain. No knee pain. No hip pain. Not hit her head. No other injuries or complaints. Comes in to be seen. HPI Historian is the patient Nurse's notes for past medical history, surgical history, social history were reviewed. Medications and allergies reviewed. PAST MEDICAL HISTORY Past Medical History: Diagnosis Date Diabetes mellitus (HCC) TBI (traumatic brain injury) (HCC) SURGICALHISTORY Past Surgical History: Procedure Laterality Date CHOLECYSTECTOMY GASTRIC BYPASS HERNIA REPAIR HYSTERECTOMY CURRENT MEDICATIONS Previous Medications AMITRIPTYLINE (ELAVIL) 10 MG TABLET Take 1 tablet by mouth Nightly. ATORVASTATIN (LIPITOR) 10 MG TABLET BLOOD GLUCOSE MONITORING SUPPL (Switchcam VERIO FLEX SYSTEM) W/DEVICE KIT USE TO TEST ONCE DAILY CALCIUM-CHOLECALCIFEROL 200-6.25 MG-MCG TABLET Take by mouth. CHOLECALCIFEROL (VITAMIN D-3) 25 MCG (1000 UT) CAPSULE Take 1,000 Units by mouth in the morning. EMPAGLIFLOZIN (JARDIANCE) 10 MG Take 10 mg by mouth daily. METFORMIN (GLUCOPHAGE) 1000 MG TABLET [employer] VERIO TEST STRIP USE TO TEST ONCE DAILY Ciprofloxacin FAMILY HISTORY No family history on file. SOCIAL HISTORY Social History Socioeconomic History Marital status: Tobacco Use Smoking status: Never Smokeless tobacco: Never Substance and Sexual Activity Alcohol use: Yes Drug use: Never SCREENINGS PHYSICAL EXAM (up to 7 for level 4, 8 or more for level 5) @EDTRIAGEVSS@ Appropriate PPE including n 95, gown, gloves, goggles where worn when appropriate with this patient. Physical Exam Examination left upper extremity tenderness and abrasion to the distal fifth and fourth metacarpal into the proximal fifth and fourth phalanx region. There is soft tissue swelling especially base of the fourth. No third second or thumb tenderness. No proximal meta carpal tenderness. No wrist tenderness. No tenderness of the knees. No elbow or shoulder tenderness to the left. DIAGNOSTIC RESULTS RADIOLOGY: Interpretation per the Radiologist below, if availableat the time of this note: XR hand 3+ views left Final Result No acute osseous process. Report Dictated on Electronically Signed By: Cynthia Rizo MD Electronically Signed Date/Time: 12/21/2023 6:19 PM EST ED BEDSIDE ULTRASOUND: Performed by ED Physician - none LABS: Labs Reviewed - No data to display All other labs were within normal range or not returned as of thisdictation. EMERGENCYDEPARTMENT COURSE and DIFFERENTIAL DIAGNOSIS/MDM: Vitals: Vitals: 12/21/23 1722 BP: 137/79 BP Location: Right arm Patient Position: Lying Pulse: 96 Resp: 18 Temp: 36.4 C (97.6 F) TempSrc: Temporal SpO2: 97% Weight: 77.1 kg (170 lb) Height: 1.6 m (5' 3) Medical Decision Making EMERGENCY DEPARTMENT COURSE and DIFFERENTIAL DIAGNOSIS/MDM: Vitals: Vitals: 12/21/23 1722 BP: 137/79 BP Location: Right arm Patient Position: Lying Pulse: 96 Resp: 18 Temp: 36.4 C (97.6 F) TempSrc: Temporal SpO2: 97% Weight: 77.1 kg (170 lb) Height: 1.6 m (5' 3) The patient presented with a chief complaint of fall and left hand pain. The differential diagnosis associated with this patient's presentation includes sprain contusion fracture dislocation. Our workup consisted of ordering/reviewing x-ray of the left hand. I believe she has a left fourth and fifth finger sprain. Will place her in aluminum splint to the fourth finger with aileen taping to the third finger. She has good range of motion of the fifth finger but limited full range of motion secondary to pain of the ring finger on the left. Normal capillary refill no signs of dislocation. Will give her sports medicine for follow-up. Aluminum splint applied by nursing staff I rechecked that she is neurologically neurovascular intact after splint is applied. Patient agrees to plan. Starting a couple days come out of the splint and do gentle range of motion and then go back in the splint for comfort. Ice to the area. Advised her that she should not stay in the splint too long as it can get very stiff but also she does not have to force it through full range of motion. Diagnoses as of 12/21/23 1847 Sprain of left ring finger, unspecified site of digit, initial encounter Diagnostics considered but not indicated based on history, physical, testing: X-ray of the wrist however not clinically indicated based on history and physical External records reviewed: Records reviewed family medicine visit on 10/06/2023 for population health evaluation. Radiologic diagnostics interpreted by me: film images such as CT, Ultrasound and MRI are read by the radiologist. Plain radiographic images are visualized and preliminarily interpreted by the emergency physician with the below findings: Xray(s) per my interpretation no acute fracture dislocation Discussions with other clinicians: none Chronic conditions impacting care: Diabetes traumatic brain injury Social determinants of health affecting care: none Shared decision making: Patient agrees to treatment plan ED Medications managed: Medications - No data to display Prescription drugs prescribed: PROCEDURES: Unless otherwise noted below, none Procedures IMPRESSION 1. Sprain of left ring finger, unspecified site of digit, initial encounter DISPOSITION/PLAN DISPOSITION Discharge 12/21/2023 06:46:59 PM PATIENT REFERRED TO: No follow-up provider specified. DISCHARGE MEDICATIONS: New Prescriptions No medications on file @[facility]([id number]:LAST:1)@ (Comment: Please notethis report has been produced using speech recognition software and may contain errors related to that system including errors in grammar, punctuation, and spelling, as well as words and phrases that may be inappropriate.If there is any questions or concerns please feel free to contact the dictating provider for clarification). Moe Lewis MD (electronically signed) Attending Emergency Physician Moe Lewis MD 12/21/231847 [facility] 10-14-2023 Telephone encounter Note Pharmacy faxed requesting the following refill Refill(s) Requested: Requested Prescriptions Pending Prescriptions Disp Refills amitriptyline (ELAVIL) 25 mg tablet [Pharmacy Med Name: AMITRIPTYLINE HCL 25 MG TAB] 90 tablet 3 Sig: take 1 tablet by mouth everyday at bedtime ALLERGIES Allergen Reactions Ciprofloxacin Swelling tongue (home) [phone] (cell) Last Office Visit Date: 06/12/2022 Last Distance Health Visit: Visit date not found Future Appointment: Visit date not found The patients preferred pharmacy has been captured for this encounter? yes Request is for script(s) to be escript to pharmacy. Pam Rankin LPN [facility] 10-14-2023 Miscellaneous Notes Pharmacy faxed requesting the following refill Refill(s) Requested: Requested Prescriptions Pending Prescriptions Disp Refills amitriptyline (ELAVIL) 25 mg tablet [Pharmacy Med Name: AMITRIPTYLINE HCL 25 MG TAB] 90 tablet 3 Sig: take 1 tablet by mouth everyday at bedtime ALLERGIES Allergen Reactions Ciprofloxacin Swelling tongue (home) [phone] (cell) Last Office Visit Date: 06/12/2022 Last [facility] Visit: Visit date not found Future Appointment: Visit date not found The patients preferred pharmacy has been captured for this encounter? yes Request is for script(s) to be escript to pharmacy. Pam Rankin LPN documented in this encounter [facility] 10-06-2023 Note HNO ID: [id number] Author: CYNTHIA HARRISON, ? Service: ? Author Type: ? Type: Progress Notes Filed: 10/06/2023 13:53 Note Text: [facility] POPULATION HEALTH NAVIGATION OUTREACH Action/FYI Patient needs called and asked if she has had mamm or would like schedule? 04-21-2023 A1c uploaded Patient Identified by Name and : Yes, via phone and via Maternovahart Reason for Outreach Care Gap or Scheduling Wellness Visits Care Gap Reviewed:: Annual Wellness visit Breast Cancer screening HBA1C/GMI Outreach Outcome/Action Unable to reach patient: Left message MyChart message sent Population Health Navigation Workflow Chart Review Cute PDF and Portal Submission Pre-Visit Planning Payer: [employer] Navigation Signature: Cynthia Harrison October 06, 2023 12:17 PM [facility] 10-06-2023 History of Presen t illness Narrative [facility] POPULATION HEALTH NAVIGATION OUTREACH Action/FYI Patient needs called and asked if she has had mamm or would like schedule? 04-21-2023 A1c uploaded Patient Identified by Name and : Yes, via phone and via Maternovahart Reason for Outreach Care Gap or Scheduling Wellness Visits Care Gap Reviewed:: Annual Wellness visit Breast Cancer screening HBA1C/GMI Outreach Outcome/Action Unable to reach patient: Left message MyChart message sent Population Health Navigation Workflow Chart Review Cute PDF and Portal Submission Pre-Visit Planning Payer: [employer] Navigation Signature: Cynthia Harrison October 06, 2023 12:17 PM documented in this encounter [facility] 10-06-2023 Note Patient Outreach (FP DOYL) DIVINE GROSSMAN ([id number]) 1955 F Date Time Provider Department 10/06/23 CYNTHIA HARRISON FPDOYL During your visit today, we recorded the following information about you: Cynthia Harrison 10/06/2023 1:53 PM Signed [facility] POPULATION HEALTH NAVIGATION OUTREACH Action/ Patient needs called and asked if she has had mamm or would like schedule? 04-21-2023 A1c uploaded Patient Identified by Name and : Yes, via phone and via Maternovahart Reason for Outreach Care Gap or Scheduling Wellness Visits Care Gap Reviewed:: Annual Wellness visit Breast Cancer screening HBA1C/GMI Outreach Outcome/Action Unable to reach patient: Left message MyChart message sent Population Health Navigation Workflow Chart Review Cute PDF and Portal Submission Pre-Visit Planning Payer: [employer] Navigation Signature: Cynthia Harrison October 06, 2023 12:17 PM Allergies As of Date: 10/06/2023 Noted Allergy Reaction CIPROFLOXACIN 03/15/2018 7 - Swelling Comments: tongue Date Reviewed: 09/21/2022 Reviewed by: Naomi Hartley RN - Fully Assessed Reason for Visit: Population Health Navigation Outreach [[id number]] Cmt: [employer] Attributed Member- Needs 2023 Medicare Wellness Appt Scheduled Prescriptions as of 10/06/2023 - amitriptyline (ELAVIL) 25 mg tablet Take 1 tablet by mouth daily at bedtime. - atorvastatin (LIPITOR) 10 mg tablet Take 10 mg by mouth once daily. - ONETOUCH VERIO TEST STRIPS test strip USE TO TEST ONCE DAILY - ONETOUCH VERIO FLEX METER USE TO TEST ONCE DAILY - amitriptyline (ELAVIL) 10 mg tablet Take [...] Take 1,000 Units by mouth once daily. Facility-Administered Medications as of 10/06/2023 - lidocaine (PF) 10 mg/mL (1 %) 1-2 mg injection (XYLOCAINE) - lactated ringers iv infusion Problem List As Of Date 10/06/2023 Noted Resolved Controlled type 2 diabetes mellitus without com* Mixed hyperlipidemia [E78.2] Malabsorption [K90.9] Obesity (BMI 30.0-34.9) [E66.9] Vitamin D deficiency [E55.9] Encounter Status:Closed by CYNTHIA HARRISON on 10/06/23 [facility] 09-21-2022 Nurse Note MD at bedside. Findings reviewed with pt. States understanding. [facility] 09-21-2022 Nurse Note at bedside. Findings reviewed with ptGallo Rosa understanding. documented in this encounter [facility] 09-21-2022 History and physical note Endoscopy pre-operative H&P IMPRESSION AND PLAN HPI: This is a 66 year old female. For screening colonoscopy. Pertinent Review of Systems: GI: See HPI All other reviewed and negative other than HPI. PAST MEDICAL HISTORY: PAST MEDICAL HISTORY Diagnosis Date Controlled type 2 diabetes mellitus without complication (HCC) Gastric ulcer H/O gastric bypass Malabsorption Mixed hyperlipidemia Obesity (BMI 30.0-34.9) Osteoporosis TBI (traumatic brain injury) (HCC) 2009 again in 2013 Uterine cancer (HCC) Vitamin D deficiency PAST SURGICAL HISTORY: PAST SURGICAL HISTORY Procedure Laterality Date SNGL COLONOSCOPY SCREENING GASTRIC BYPASS HX HERNIA REPAIR HX HYSTERECTOMY HX TONSILLECTOMY & ADENOIDECTOMY OBJECTIVE: PHYSICAL EXAM: VITALS: BP 119/67 Pulse 90 Temp 36.3 C (97.3 F) (Temporal) Resp 16 Ht 162.6 cm (5' 4) Wt 82.6 kg (182 lb) SpO2 97% BMI 31.24 kg/m General appearance: A&Ox3 Plan: OK to proceed with endoscopy. SIGNATURE: Kory Serna MD PATIENT NAME: Divine Grossman Pager: [facility] Work Phone: 09-21-2022 History and physical note Endoscopy pre-operative H&P IMPRESSION AND PLAN HPI: This is a 66 year old female. For screening colonoscopy. Pertinent Review of Systems: GI: See HPI All other reviewed and negative other than HPI. PAST MEDICAL HISTORY: PAST MEDICAL HISTORY Diagnosis Date Controlled type 2 diabetes mellitus without complication (HCC) Gastric ulcer H/O gastric bypass Malabsorption Mixed hyperlipidemia Obesity (BMI 30.0-34.9) Osteoporosis TBI (traumatic brain injury) (HCC) 2009 again in 2013 Uterine cancer (HCC) Vitamin D deficiency PAST SURGICAL HISTORY: PAST SURGICAL HISTORY Procedure Laterality Date SNGL COLONOSCOPY SCREENING GASTRIC BYPASS HX HERNIA REPAIR HX HYSTERECTOMY HX TONSILLECTOMY & ADENOIDECTOMY <AGE 12 OBJECTIVE: PHYSICAL EXAM: VITALS: BP 119/67 Pulse 90 Temp 36.3 C (97.3 F) (Temporal) Resp 16 Ht 162.6 cm (5' 4) Wt 82.6 kg (182 lb) SpO2 97% BMI 31.24 kg/m General appearance: A&Ox3 Plan: OK to proceed with endoscopy. SIGNATURE: Kory Serna MD PATIENT NAME: Divine Grossman Pager: documented in this encounter [facility] 09-21-2022 Nurse procedure note Abdominal support applied. [facility] 09-21-2022 Miscellaneous Notes Abdominal support applied. documented in this encounter [facility] 08-19-2022 History of Presen t illness Narrative POPULATION HEALTH NAVIGATION OUTREACH Action/FYI Patient Identified by Name and : YES, via phone Outreach Outcome/Action Spoke to patient / parent / legal guardian: Patient will return the call or ask for return call Patient has had DM eye exam at [facility] in the past. Called to see when patient had last DM eye exam. Completed on 01-18-[address] Adore Winters. Requested office to fax record to PCP at fax [phone]. HM updated. Patient needs scheduled for Medicare [...] 2022 10:56 AM documented in this encounter [facility] 07-21-2022 Instructions Yady Nuñez Pss - 07/21/2022 8:58 AM EDT Images from the original note were not included. Bowel Preparation Instructions for: Miralax-Gatorade Preparations IF YOU DO NOT FOLLOW THESE DIRECTIONS, YOUR COLONOSCOPY WILL BE CANCELLED. Brown Instructions: Your bowel must be empty so [...] If you do not have a responsible m48/m60 tank driver (family member or friend) with you to take you home, your exam cannot be done with sedation and will be cancelled. Please bring a list of all of your current medications, including any Irkf-dvs-Oarbvvh medications with you. Medications If you take [...] exam. 2 01/2019 documented in this encounter [facility] 07-21-2022 Miscellaneous Notes Indication: AVERAGE RISK SCREENING COLONOSCOPY Height: 5'3 Weight: 185 BMI: 32.8 Have you ever been told you were difficult to intubate? No (If yes, schedule at hospital) Recent stroke or cardiac event in the past 6 months? No (ex: heart attack or stent placement) Chest pain or shortness of breath on exertion? No If yes, give to RESIDENTIAL ROOFER to evaluate. History of COPD/Emphysema/Asthma/or Sleep Apnea? No If uses an inhaler, have pt bring inhaler with them. On oxygen at home? No If yes, give to RESIDENTIAL ROOFER to evaluate. Implanted defibrillator (ACD)? No If [...] on dialysis? No If cirrhosis pt., have RESIDENTIAL ROOFER review chart Do you have a history [...] of breath, on oxygen, using inhalers, seeing referral specialist? No If yes, have RESIDENTIAL ROOFER evaluate patient Personal History Colon polyps? No Colon cancer? No Crohn's Disease? No Ulcerative Colitis? No Who/where? Approx date Family History Colon polyps? No Colon cancer? No Crohn's Disease? No Ulcerative Colitis? No Relationship? Approx age dx. Referring Physician: Office Visit Scheduled: Procedure Date Scheduled: 09/21/22 documented in this encounter [facility] 06-12-2022 History of Presen t illness Narrative Images from the original note were not included. [facility] [address] [place] [address] Date of Evaluation: 06/12/2022 Patient Name: Divine [...] history is provided by the patient. No granite polisher machine was used. Review of Systems Constitutional: Negative [...] (BMI 30.0-34.9) Osteoporosis TBI (traumatic brain injury) (HCC) 2009 again in 2013 Uterine cancer (HCC) Vitamin D deficiency PAST [...] 25 mg - AMITRIPTYLINE 25 MG TABLET Jalen Kaur, DO Return in about 1 year (around 06/13/2023). Attestation: Scribe Statement: I Ines Schneider LPN am scribing for, and in the presence of, Jalen Kaur DO June 12, 2022 10:19 AM. Physician Statement: I, Jalen Kaur DO, personally performed the services described in the documentation, as scribed by Ines Schneider in my presence, and it is both accurate and complete June 12, 2022 8:41 AM. documented in this encounter [facility] 05-16-2021 Miscellaneous Notes Notified pt that med has been sent in. Kathia Bolivar Elavil? I send that Pt was in yesterday for headaches. Pt said was supposed to call med into pharmacy. There is no med in her office note to know what wasn't sent and pt does not know the name of the med. Pt uses [facility] [place] Kathia Tijerinao documented in this encounter [facility] 05-15-2021 History of Presen t illness Narrative Images from the original note were not included. [facility] [place] Jalen Kaur DO [address] [place] [address] Date of Evaluation: 05/15/2021 Patient Name: Divine [...] Controlled type 2 diabetes mellitus without complication ([facility]) H/O gastric bypass Malabsorption Mixed hyperlipidemia Obesity (BMI 30.0-34.9) TBI (traumatic brain injury) ([facility]) 2009 again in 2013 Uterine cancer ([facility]) Vitamin D deficiency PAST SURGICAL HISTORY Procedure [...] Start Amitriptyline - AMITRIPTYLINE 10 MG TABLET Jalen Kaur DO Return if symptoms worsen or fail to improve. Attestation: Scribe Statement: Radha Taylor am scribing for, and in the presence of, Jalen Kaur DO May 15, 2021 1:35 PM. Physician Statement: I, Jalen Kaur DO, personally performed the services described in the documentation, as scribed by Aziza Amaya in my presence, and it is both accurate and complete May 15, 2021 1:51 PM. documented in this encounter [facility] Evaluation note No assessment inform ation available [facility] Work Phone: Evaluation note Diagnosis Muscle tension headache- Primary Tension headache documented in this encounter [facility] note* Diagnosis Onset Date Resolution Status Malabsorption acute Obesity acute Diabetes chronic Mixed hyperlipidemia chronic [facility] Work Phone: Evaluation note* Diagnosis Onset Date Resolution Status Malabsorption acute Obesity acute Diabetes chronic Mixed hyperlipidemia chronic Malabsorption acute Osteoporosis acute [facility] Work Phone: Evaluation note* Diagnosis Muscle tension headache- Primary Tension headache Screening for colon cancer Special screening for malignant neoplasms, colon documented in this encounter [facility] note* Diagnosis Special screening for malignant neoplasms, colon- Primary documented in this encounter [facility] note* Diagnosis Muscle tension headache Tension headache documented in this encounter [facility] note* Diagnosis Special screening for malignant neoplasms, colon documented in this encounter [facility] note* Diagnosis Sprain of left ring finger, unspecified site of digit, initial encounter- Primary documented in this encounter [facility] note* Diagnosis Sprain of left ring finger, unspecified site of digit, subsequent encounter- Primary Fall (on) (from) other stairs and steps, sequela documented in this encounter [facility] note* Diagnosis Muscle tension headache- Primary Tension headache Class 1 obesity with body mass index (BMI) of 31.0 to 31.9 in adult, unspecified obesity type, unspecified whether serious comorbidity present [facility] Medicare annual wellness visit, subsequent- Primary Routine general medical examination at a health care facility Controlled type 2 diabetes mellitus without complication, without long-term current use of insulin (HCC) Mixed hyperlipidemia Post-menopausal Asymptomatic postmenopausal status (age-related) (natural) Screening for depression Screening for diabetic retinopathy Screening for other eye conditions Class 1 obesity with body mass index (BMI) of 30.0 to 30.9 in adult, unspecified obesity type, unspecified whether serious comorbidity present Encounter for screening mammogram for breast cancer Screening for thyroid disorder Encounter for screening examination for other mental health and behavioral disorders Special screening examination for viral disease Special screening examination for unspecified viral disease documented in this encounter [facility] for referral (narrative)* Outpatient Procedure (Routine) - Authorized Specialty Diagnoses / Procedures Referred By Kira westfall Referred To Contact [facility] Diagnoses Special screening for malignant neoplasms, colon Procedures COLONOSCOPY SCREENING COLONOSCOPY FLX DX W/COLLJ SPEC WHEN Kory Rae MD [address] [facility] [place] [address] [facility] [address] [address] Referral ID Status Reason Start Date Expiration Date Visits Requested Visits Authorized [id number] Authorized Auto-Generat ed Referral 07/21/2022 07/22/2023 1 1 [facility] for referral (narrative)* Outpatient Procedure (Routine) - Closed Specialty Diagnoses / Procedures Referred By Kira westfall Referred To Contact [facility] Diagnoses Special screening for malignant neoplasms, colon Procedures COLONOSCOPY SCREENING COLONOSCOPY FLX DX W/COLLJ SPEC WHEN Kory Rae MD [address] [facility] [place] [address] [facility] [address] [address] Referral ID Status Reason Start Date Expiration Date V isits Requested Visits Authorized [id number] Closed Auto-Generate d Referral 07/21/2022 07/22/2023 1 1 [facility])No reason for referral information [facility]WMercy [facility] Work Phone: Reason for visit Narrative* Outpatient Procedure (Routine) - Closed Specialty Diagnoses / Procedures Referred By Kira westfall Referred To Contact [facility] Diagnoses Special screening for malignant neoplasms, colon Procedures COLONOSCOPY SCREENING COLONOSCOPY FLX DX W/COLLJ SPEC WHEN [facility] Kory Serna MD [address] [address] [facility] [address] [place] [address] Referral ID Status Reason Start Date Expiration Date V isits Requested Visits Authorized [id number] Closed Auto-Generate d Referral 07/21/2022 07/22/2023 1 1 [facility] Summary Purpose Family History No Family History Records Found Relationship Condition Age at Onset Recorded Date/T vish father Alcoholism Unknown Chronic obstructive pulmonary disease Unk nown Cardiac disease Unknown brother Unknown sister Unknown Diabetes mellitus Unknown mother Hypertension Unknown Advance Directives No Advanced Directives Records FoundDocuments on File Type Date Recorded Patient Body Recall Instructor Expl anation Advance Directive(s) 03/15/2018 2:43 PM Chief Complaint and Reason for Visit Chief Complaint EORDER Chief Complaint EORDER 1 Y FU OSTEOPENIA Reason for Visit Malabsorption Obesity Diabetes Mixed hyperlipidemia Chief Complaint EORDER 1 Y FU OSTEOPENIA 2 M FU/Treatment Option RECLAST Reason for Visit Malabsorption Obesity Diabetes Mixed hyperlipidemia Malabsorption Osteoporosis Chief Complaint Admit Date RECLAST September 13, 2024 7:45 am Reason for Referral Specialty Diagnoses / Procedures Referred By Kira westfall Referred To Contact Gastroenterology Diagnoses Screening for colon cancer Procedures CONSULT TO GASTROENTEROLOGY OFFICE/OUTPATIENT [facility] 60-74 MINUTES Jalen Kaur DO [address] [place] [address] Referral ID Status Reason Start Date Expiration Date Visits Requested Visits Authorized [id number] Pending Review PCP Requested Referral 06/12/2022 06/12/2023 1 1 Additional Source Comments INFORMATION SOURCE (unrecogn ized section and content) DATE CREATED AUTHOR 10/15/2018 [facility] DATE CREATED AUTHOR AUTHOR'S ORGANIZ ATION 12/23/2023 [facility] DATE CREATED AUTHOR AUTHOR'S ORGANIZ ATION 04/01/2024 [facility] DATE CREATED AUTHOR AUTHOR'S ORGANIZ ATION 09/21/2024 [facility] DATE CREATED AUTHOR AUTHOR'S ORGANIZ ATION 10/07/2024 [facility] Source Comments (unrecognize d section and content) In the event this informatio n is protected by the Federal Confidentiality of Alcohol and Drug Abuse Patient Records regulations: The Federal rules restrict any use of the information to criminally investigate or prosecute any alcohol or drug abuse patient.[facility] the event this information is protected by the Federal Confidentiality of Alcohol and Drug Abuse Patient Records regulations: The Federal rules restrict any use of the information to criminally investigate or prosecute any alcohol or drug abuse patient.[facility] the event this information is protected by the Federal Confidentiality of Alcohol and Drug Abuse Patient Records regulations: The Federal rules restrict any use of the information to criminally investigate or prosecute any alcohol or drug abuse patient.[facility] the event this information is protected by the Federal Confidentiality of Alcohol and Drug Abuse Patient Records regulations: The Federal rules restrict any use of the information to criminally investigate or prosecute any alcohol or drug abuse patient.[facility] the event this information is protected by the Federal Confidentiality of Alcohol and Drug Abuse Patient Records regulations: The Federal rules restrict any use of the information to criminally investigate or prosecute any alcohol or drug abuse patient.[facility] the event this information is protected by the Federal Confidentiality of Alcohol and Drug Abuse Patient Records regulations: The Federal rules restrict any use of the information to criminally investigate or prosecute any alcohol or drug abuse patient.[facility] the event this information is protected by the Federal Confidentiality of Alcohol and Drug Abuse Patient Records regulations: The Federal rules restrict any use of the information to criminally investigate or prosecute any alcohol or drug abuse patient.[facility] the event this information is protected by the Federal Confidentiality of Alcohol and Drug Abuse Patient Records regulations: The Federal rules restrict any use of the information to criminally investigate or prosecute any alcohol or drug abuse patient.[facility] the event this information is protected by the Federal Confidentiality of Alcohol and Drug Abuse Patient Records regulations: The Federal rules restrict any use of the information to criminally investigate or prosecute any alcohol or drug abuse patient.[facility] the event this information is protected by the Federal Confidentiality of Alcohol and Drug Abuse Patient Records regulations: The Federal rules restrict any use of the information to criminally investigate or prosecute any alcohol or drug abuse patient.[facility] Center[facility] the event this information is protected by the Federal Confidentiality of Alcohol and Drug Abuse Patient Records regulations: The Federal rules restrict any use of the information to criminally investigate or prosecute any alcohol or drug abuse patient.[facility] Center[facility] the event this information is protected by the Federal Confidentiality of Alcohol and Drug Abuse Patient Records regulations: The Federal rules restrict any use of the information to criminally investigate or prosecute any alcohol or drug abuse patient.[facility] Center[facility] the event this information is protected by the Federal Confidentiality of Alcohol and Drug Abuse Patient Records regulations: The Federal rules restrict any use of the information to criminally investigate or prosecute any alcohol or drug abuse patient.[facility] Center[facility] the event this information is protected by the Federal Confidentiality of Alcohol and Drug Abuse Patient Records regulations: The Federal rules restrict any use of the information to criminally investigate or prosecute any alcohol or drug abuse patient.[facility] Center[facility] the event this information is protected by the Federal Confidentiality of Alcohol and Drug Abuse Patient Records regulations: The Federal rules restrict any use of the information to criminally investigate or prosecute any alcohol or drug abuse patient.[facility] CenterIn the event this information is protected by the Federal Confidentiality of Alcohol and Drug Abuse Patient Records regulations: The Federal rules restrict any use of the information to criminally investigate or prosecute any alcohol or drug abuse patient.[facility] Center[facility] the event this information is protected by the Federal Confidentiality of Alcohol and Drug Abuse Patient Records regulations: The Federal rules restrict any use of the information to criminally investigate or prosecute any alcohol or drug abuse patient.[facility] Center[facility] the event this information is protected by the Federal Confidentiality of Alcohol and Drug Abuse Patient Records regulations: The Federal rules restrict any use of the information to criminally investigate or prosecute any alcohol or drug abuse patient.[facility] CenterIn the event this information is protected by the Federal Confidentiality of Alcohol and Drug Abuse Patient Records regulations: The Federal rules restrict any use of the information to criminally investigate or prosecute any alcohol or drug abuse patient.[facility] CenterIn the event this information is protected by the Federal Confidentiality of Alcohol and Drug Abuse Patient Records regulations: The Federal rules restrict any use of the information to criminally investigate or prosecute any alcohol or drug abuse patient.[facility] CenterIn the event this information is protected by the Federal Confidentiality of Alcohol and Drug Abuse Patient Records regulations: The Federal rules restrict any use of the information to criminally investigate or prosecute any alcohol or drug abuse patient.[facility] CenterIn the event this information is protected by the Federal Confidentiality of Alcohol and Drug Abuse Patient Records regulations: The Federal rules restrict any use of the information to criminally investigate or prosecute any alcohol or drug abuse patient.[facility] Goals (unrecognized section and content) Goals may be documented in a n alternate sectionGoals may be documented in an alternate sectionGoals may be documented in an alternate sectionGoals may be documented in an alternate sectionGoals may be documented in an alternate section Reason for Visit (unrecogniz ed section and content) Reason Comments Medication Problem Reason Comments Headache TBI 12yrs ago reinju red 4 yr - 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 noticed Reason Comments Follow Up Yearly check up Reason Comments screening colonoscopy checklist/order Reason Onset Date Comments Population Health Navigation Outreach 08/19/2022 Needs Medicare Wellness Sched, Care Gap Review Reason Onset Date Comments Population Health Navigation Outreach 10/06/2023 [employer] Attributed Member- Needs 2023 Medicare Wellness Appt Scheduled Reason Comments Refill Request Reason Comments Fall Pt had a mechanical fall while going up unfamiliar steps Hand Injury Left hand injury s/p fall Reason Onset Date Comments Transition Of Care 12/22/2023 ER F/U 12/22/2023 Femi Loomis ER 12/21/23 Reason Comments Fall ED Follow Up Reason Onset Date Comments Population Health Navigation Outreach 02/03/2024 [employer] Attributed Member - Chart Review Reason Comments muscle tension headache Refill request a mitriptyline Reason Onset Date Comments Population Health Navigation Outreach 03/30/2024 [employer] High Risk- Attempt 1 Reason Onset Date Comments Population Health Navigation Outreach 05/16/2024 [employer] Attributed Member - Chart Review Reason Comments Orders A1c reminder Reason Comments Medicare Wellness Exam Reason Onset Date Comments Population Health Navigation Outreach 06/22/2024 [employer] Attributed Member - Chart Review Reason Onset Date Comments Population Health Navigation Outreach 09/18/2024 [employer] Attributed Member - Chart Review Care Teams (unrecognized sec tion and content) Grinder Dresser Relationship Specialty Start Date End Date Jalen Kaur DO PCP - General Family Practice 03/18/16 Grinder Dresser Relationship Specialty Start Date End Date Jalen Kaur DO PCP - General Family Practice 03/18/16 Grinder Dresser Relationship Specialty Start Date End Date Jalen Kaur DO PCP - General Family Practice 03/18/16 Grinder Dresser Relationship Specialty Start Date End Date Jalen Kaur DO [address] [place] [address] PCP - General Family Medicine 06/16/22 Grinder Dresser Relationship Specialty Start Date End Date Jalen Kaur DO PCP - General Family Medicine 03/18/16 Grinder Dresser Relationship Specialty Start Date End Date Jalen Kaur DO PCP - General Family Medicine 03/18/16 Grinder Dresser Relationship Specialty Start Date End Date Jalen Kaur DO PCP - General Family Medicine 03/18/16 Grinder Dresser Relationship Specialty Start Date End Date Jalen Kaur DO PCP - General Family Medicine 03/18/16 Team Status: Active Member Role Status Dates Dr. Angel Kaur DO Primary Care Provider Acti ve Team Status: Inactive Member Role Status Dates Dr. Angel Kaur DO Primary Care Provider Acti ve Dr. Mikel Price MD Attending Provider, Referring Provi francoise Active Grinder Dresser Relationship Specialty Start Date End Date Jalen Kaur DO PCP - General Family Medicine 03/18/16 Grinder Dresser Relationship Specialty Start Date End Date HarshadJalen DO PCP - General Family Medicine 03/18/16 Grinder Dresser Relationship Specialty Start Date End Date Harshad Jalen [address] [place] [address] PCP - General Family Medicine 06/16/22 Grinder Dresser Relationship Specialty Start Date End Date Harshad Jalen [address] [place] [id number] PCP - General Family Medicine 06/16/22 Grinder Dresser Relationship Specialty Start Date End Date Jalen Kaur DO PCP - General Family Medicine 03/18/16 Grinder Dresser Relationship Specialty Start Date End Date Jalen Kaur DO PCP - General Family Medicine 03/18/16 Grinder Dresser Relationship Specialty Start Date End Date Jalen Kaur DO PCP - General Family Medicine 03/18/16 Grinder Dresser Relationship Specialty Start Date End Date Jalen Kaur DO PCP - General Family Medicine 03/18/16 Grinder Dresser Relationship Specialty Start Date End Date Jalen Kaur DO PCP - General Family Medicine 03/18/16 Grinder Dresser Relationship Specialty Start Date End Date Jalen Kaur DO PCP - General Family Medicine 03/18/16 Grinder Dresser Relationship Specialty Start Date End Date Jalen Kaur DO PCP - General Family Medicine 03/18/16 Team Status: Active Member Role/Relationship Status Dates Dr. Angel Kaur DO Primary Care Provider Acti ve Team Status: Inactive Member Role/Relationship Status Dates Dr. Angel Kaur DO Primary Care Provider Acti ve Start: September 13, 2024 End: September 13, 2024 Dr. Mikel Price MD Attending Provider Active Sta rt: September 13, 2024 End: September 13, 2024 Dr. Mikel Price MD Referring Provider Active Gayle rt: September 13, 2024 End: September 13, 2024 FOR RECORDS PERTAINING TO PATIENTS WHO ARE [...] BE BASED ON THE PRIMARY CLINICAL RECORDS. [facility] [employer] provides no warranty or guarantee of the accuracy or completeness of information in this document.
--- NOTE | 2024-10-10 07:30 | BI_ITS ---
EXAM: SCRN MAMM (CAD)W/ROSALBA BILAT DATE: 10/10/2024 CLINICAL HISTORY: F, Age 68 y/o , SCREENING No family history. TECHNIQUE: SCRN MAMM (CAD)W/ROASLBA BILAT COMPARISON: Prior exam(s) dated May 23, 2021.. FINDINGS: TISSUE DENSITY: There are scattered areas of fibroglandular density. Bilateral Breast Mammographic Findings: No significant masses, calcifications or other abnormalities are identified. No suspicious masses, areas of developing architectural distortion, or suspicious calcifications. There has been no significant interval change. BI/SCRN MAMM (CAD)W/ROSALBA BILAT IMPRESSION: Stable examination OVERALL FINAL ASSESSMENT BI-RADS 1: NEGATIVE. RECOMMENDATION: Routine annual follow-up in 1 Year A letter with findings and recommendations will be mailed to the patient. Reading Location: [id number]
== END | disposition home or self-care (01) ==
LOC: OPBI 07:25
PROVIDERS: PCP Family Medicine; Referring Provider Internal Medicine Endocrinology, Diabetes & Metabolism; Visit Provider Internal Medicine Endocrinology, Diabetes & Metabolism
DX: Z12.31 Encounter for screening mammogram for malignant neoplasm of breast (principal)
CPT/HCPCS: 77063; 77067